=== PATIENT | male | born 1965 | race African-American/Black ===

== ENCOUNTER 2016-11-16 10:51 | Inpatient (IN) | payer MEDICAID ==
[~2016-11-16] VITALS: Ht 165.1 cm; Wt 142.9 kg
[~2016-11-16 10:51] MED LIST: ALBU18HF2 IH; AMLO5TAB4 PO; ATOR10TA PO; CYAN10009 PO; DOCU-150 PO; FERR-63 PO; FURO40TA5 PO; IBUP-2029 PO; KEFLL21 PO; LISI1TAB9 PO; LOSA50TA20 PO; OMEP20CA10 PO; OMEP20TA2 PO; P20 PO
[2016-11-16] MEDS ORDERED: IPRATROPIUM/ALBUTEROL 0.5-3(2.5)MG/3ML NEB HHN ONE (11:30)
[2016-11-16] MEDS ORDERED: FUROSEMIDE 40MG/4ML VIAL IVP ONE (11:30)
[2016-11-16] MEDS ORDERED: ASPIRIN 81MG TABLET PO ONE (11:30)
[2016-11-16] MEDS ORDERED: NITROGLYCERIN OINT 1GM/INCH UDPKT TD ONE (11:30)
[2016-11-16 11:57] LABS: BASOPHILS % 0.7 % (0.0-2.0); EOSINOPHILS % 0.4 % (0.0-5.0); HEMATOCRIT. 38.6 % (42.0-52.0); HEMOGLOBIN. 12.7 g/dL (14.0-18.0); LYMPHOCYTES % 22.2 % (20.0-50.0); MEAN CORPUSCULAR HEMOGLOBIN 30.5 pg (28.0-32.0); MEAN CORPUSCULAR VOLUME 92.9 fL (80.0-94.0); MEAN PLATELET VOLUME 7.7 fl (7.4-10.4); MONOCYTES % 10.6 % (2.0-8.0); NEUTROPHILS % 66.1 % (40.0-76.0); PLATELET 218 x1000/uL (130-400); RED BLOOD CELL COUNT 4.16 mill/uL (4.7-6.1); RED CELL DISTRIBUTION WIDTH 17.1 % (11.6-14.6)
[2016-11-16 11:58] LABS: CLARITY URINE CLEAR (CLEAR); COLOR URINE YELLOW (YELLOW); GLUCOSE URINE NEGATIVE (NEGATIVE); KETONES URINE NEGATIVE (NEGATIVE); LEUKOCYTE ESTERASE URINE NEGATIVE (NEGATIVE); NITRITE URINE NEGATIVE (NEGATIVE); OCCULT BLOOD URINE 1+ (NEGATIVE); PH URINE 5.5 (4.5-8.0); PROTEIN URINE NEGATIVE (NEGATIVE); SPECIFIC GRAVITY URINE 1.019 (1.005-1.030); UROBILINOGEN URINE 0.2 E.U./dL (0.2-1.0)
[2016-11-16 12:09] LABS: CARBON DIOXIDE 29 mEq/L (21-32); CHLORIDE 106 mEq/L (98-107)
[2016-11-16 12:14] LABS: TROPONIN I < 0.02 ng/mL (0.00-0.04)
[2016-11-16 12:31] LABS: PARTIAL THROMBOPLASTIN TIME 26.2 sec (23.4-31.0); PROTHROMBIN TIME 10.5 sec (9.4-11.6)
[2016-11-16] MEDS ORDERED: CLONIDINE 0.1MG TABLET PO PRN (16:30)
[2016-11-16] MEDS: POTASSIUM CHLORIDE 20MEQ TABLET SR PO SCH (18:03)
[2016-11-16] MEDS: FUROSEMIDE 40MG/4ML VIAL IVP SCH (18:03)
[2016-11-16 18:32] VITALS: BP 141/95
[2016-11-16] MEDS ORDERED: ASPI-1160 PO (18:49)
[2016-11-16] MEDS ORDERED: CARV12.545 PO (18:51)
[2016-11-16] MEDS ORDERED: NITROGLYCERIN 0.4MG TABLET SL SL PRN (19:00)
[2016-11-16 20:00] VITALS: BP 114/69
[2016-11-16] MEDS: LOSARTAN POTASSIUM 25 MG TABLET PO SCH (20:51)
[2016-11-16] MEDS: AMLODIPINE 5MG TABLET PO SCH (20:51)
[2016-11-16] MEDS: ATORVASTATIN CALCIUM 10MG TABLET PO SCH (20:58)
[2016-11-17] VITALS: BP 110/60
[2016-11-17 04:00] VITALS: BP 111/62
[2016-11-17 07:07] LABS: BASOPHILS % 0.4 % (0.0-2.0); EOSINOPHILS % 0.6 % (0.0-5.0); HEMATOCRIT. 38.3 % (42.0-52.0); HEMOGLOBIN. 12.6 g/dL (14.0-18.0); LYMPHOCYTES % 19.7 % (20.0-50.0); MEAN CORPUSCULAR HEMOGLOBIN 30.7 pg (28.0-32.0); MEAN CORPUSCULAR VOLUME 93.5 fL (80.0-94.0); MEAN PLATELET VOLUME 8.5 fl (7.4-10.4); MONOCYTES % 11.7 % (2.0-8.0); NEUTROPHILS % 67.6 % (40.0-76.0); PLATELET 212 x1000/uL (130-400); RED CELL DISTRIBUTION WIDTH 17.1 % (11.6-14.6)
[2016-11-17 07:48] LABS: CHLORIDE 101 mEq/L (98-107)
[2016-11-17 07:57] LABS: CARBON DIOXIDE 32 mEq/L (21-32); HDL CHOLESTEROL 28 mg/dL (40-59); LDL CHOLESTEROL 67 mg/dL (5-100); TROPONIN I < 0.02 ng/mL (0.00-0.04)
[2016-11-17 08:00] VITALS: BP 146/89
[2016-11-17] MEDS: POTASSIUM CHLORIDE 20MEQ TABLET SR PO SCH ×2 (08:39→16:19)
[2016-11-17] MEDS: FUROSEMIDE 40MG/4ML VIAL IVP SCH ×2 (08:39→16:19)
[2016-11-17] MEDS: AMLODIPINE 5MG TABLET PO SCH ×2 (08:39→21:04)
[2016-11-17] MEDS: LOSARTAN POTASSIUM 25 MG TABLET PO SCH ×2 (08:40→21:11)
[2016-11-17] MEDS: HYDROCODONE/ACETAMINOPHEN 5/325MG TABLET PO PRN ×4 (08:42→21:05)
[2016-11-17] MEDS ORDERED: POTASSIUM CHLORIDE 20MEQ TABLET SR PO NR (11:00)
[2016-11-17 11:57] VITALS: BP 136/88
[2016-11-17 15:55] VITALS: BP 138/96
[2016-11-17] MEDS: ATORVASTATIN CALCIUM 10MG TABLET PO SCH (21:03)
[2016-11-18 00:08] VITALS: BP 112/60
[2016-11-18 04:37] VITALS: BP 140/76
[2016-11-18 05:45] LABS: BASOPHILS % 0.4 % (0.0-2.0); EOSINOPHILS % 0.8 % (0.0-5.0); HEMATOCRIT. 44.1 % (42.0-52.0); HEMOGLOBIN. 14.5 g/dL (14.0-18.0); LYMPHOCYTES % 27.3 % (20.0-50.0); MEAN CORPUSCULAR VOLUME 94.1 fL (80.0-94.0); MEAN PLATELET VOLUME 8.1 fl (7.4-10.4); MONOCYTES % 13.4 % (2.0-8.0); NEUTROPHILS % 58.1 % (40.0-76.0); PLATELET 230 x1000/uL (130-400); RED BLOOD CELL COUNT 4.69 mill/uL (4.7-6.1); RED CELL DISTRIBUTION WIDTH 17.4 % (11.6-14.6)
[2016-11-18 06:43] LABS: CARBON DIOXIDE 34 mEq/L (21-32); CHLORIDE 96 mEq/L (98-107)
[2016-11-18 08:00] VITALS: BP 125/88
[2016-11-18] MEDS: POTASSIUM CHLORIDE 20MEQ TABLET SR PO SCH (08:38)
[2016-11-18] MEDS: LOSARTAN POTASSIUM 25 MG TABLET PO SCH (08:38)
[2016-11-18] MEDS: AMLODIPINE 5MG TABLET PO SCH (08:38)
[2016-11-18] MEDS: HYDROCODONE/ACETAMINOPHEN 5/325MG TABLET PO PRN (08:41)
[2016-11-18] MEDS: FUROSEMIDE 40MG/4ML VIAL IVP SCH (08:49)
[2016-11-18 12:00] VITALS: BP 148/95
[2016-11-18 13:07] LABS: *AMPHETAMINES SCREEN URINE NEGATIVE (NEGATIVE); *BARBITURATES SCREEN URINE NEGATIVE (NEGATIVE); *BENZODIAZEPINES SCREEN URINE NEGATIVE (NEGATIVE); *COCAINE SCREEN URINE NEGATIVE (NEGATIVE); CANNABINOID URINE SCREEN NEGATIVE (NEGATIVE); METHADONE URINE SCREEN NEGATIVE (NEGATIVE); OPIATES URINE SCREEN PRESUMTIVE POSITIVE (NEGATIVE); PHENCYCLIDINE URINE SCREEN NEGATIVE (NEGATIVE)
[2016-11-18] MEDS ORDERED: FUROSEMIDE 40MG TABLET PO SCH (17:00)
== END 2016-11-18 15:40 | disposition home or self-care (01) | DRG 133 ==
LOC: ER 11:21 → 8WST 15:56 → EDBEDREQ 16:00 → ENRESERV 16:02
PROVIDERS: ADMIT Internal Medicine; ATTEND Internal Medicine
DX: J96.00 Acute respiratory failure, unspecified whether with hypoxia or hypercapnia (principal); I50.23 Acute on chronic systolic (congestive) heart failure; I42.0 Dilated cardiomyopathy; E46 Unspecified protein-calorie malnutrition; Z68.43 Body mass index [BMI] 50.0-59.9, adult; E66.01 Morbid (severe) obesity due to excess calories; J44.9 Chronic obstructive pulmonary disease, unspecified; D50.9 Iron deficiency anemia, unspecified; F14.10 Cocaine abuse, uncomplicated; I11.0 Hypertensive heart disease with heart failure; E78.5 Hyperlipidemia, unspecified; K21.9 Gastro-esophageal reflux disease without esophagitis; E78.00 Pure hypercholesterolemia, unspecified; F17.200 Nicotine dependence, unspecified, uncomplicated; Z79.82 Long term (current) use of aspirin; Z79.899 Other long term (current) drug therapy; Z91.19 Patient's noncompliance with other medical treatment and regimen; Z88.6 Allergy status to analgesic agent; Z79.51 Long term (current) use of inhaled steroids
CPT/HCPCS: 36415; 71010; 80053; 80061; 80305; 81001; 83735; 83880; 84443; 84484; 85025; 85610; 85730; 87040; 87086; 93005; 93970; 94640; 96374; 99285; 99406; J1940; J7620

== ENCOUNTER 2017-03-11 10:36 | Inpatient (IN) | payer MEDICAID ==
[~2017-03-11] VITALS: Ht 165.1 cm; Wt 148.0 kg
[~2017-03-11 10:36] MED LIST changes: -AMLO5TAB4 PO; +AMLO5TAB88 PO; +ASPI-1160 PO; +COR12 PO; -IBUP-2029 PO; -KEFLL21 PO; -LOSA50TA20 PO; +LOSA50TA3 PO; -OMEP20CA10 PO; -OMEP20TA2 PO; -P20 PO; +THIA100T72 PO
[2017-03-11 11:18] LABS: BASOPHILS % 0.4 % (0.0-2.0); HEMOGLOBIN. 13.3 g/dL (14.0-18.0); LYMPHOCYTES % 9.4 % (20.0-50.0); MEAN CORPUSCULAR HEMOGLOBIN 30.5 pg (28.0-32.0); MEAN PLATELET VOLUME 8.5 fl (7.4-10.4); NEUTROPHILS % 81.2 % (40.0-76.0); PLATELET 238 x1000/uL (130-400); RED BLOOD CELL COUNT 4.36 mill/uL (4.7-6.1); RED CELL DISTRIBUTION WIDTH 16.6 % (11.6-14.6)
[2017-03-11 11:28] LABS: PROTHROMBIN TIME 10.9 sec (9.4-11.6)
[2017-03-11 11:35] LABS: CARBON DIOXIDE 26 mEq/L (21-32); CHLORIDE 104 mEq/L (98-107); TROPONIN I 0.03 ng/mL (0.00-0.04)
[2017-03-11] MEDS ORDERED: ASPIRIN 81MG TABLET PO ONE (12:00)
[2017-03-11] MEDS ORDERED: ALBUTEROL (0.083%) 2.5MG/3ML NEB HHN ONE (12:00)
[2017-03-11] MEDS ORDERED: FUROSEMIDE 40MG/4ML VIAL IV ONE (12:00)
[2017-03-11] MEDS ORDERED: NITROGLYCERIN 0.4MG TABLET SL SL PRN (12:00)
[2017-03-11 14:59] VITALS: BP 156/96
[2017-03-11] MEDS ORDERED: ATOR10TA69 PO (15:16)
[2017-03-11] MEDS ORDERED: DIPH25CA46 PO (15:16)
[2017-03-11] MEDS ORDERED: POTA20TA82 PO (15:16)
[2017-03-11 15:45] VITALS: BP 141/76
[2017-03-11] MEDS ORDERED: ALBUTEROL 6.7GM HFA INHALER INH PRN (18:00)
[2017-03-11 20:00] VITALS: BP 117/63
[2017-03-11] MEDS: MORPHINE SULFATE 2 MG/ML CPJ (NOT FOR IM USE) IV PRN (21:06)
[2017-03-11] MEDS: AMLODIPINE 5MG TABLET PO SCH (21:06)
[2017-03-12] VITALS (7 sets, daily range): BP systolic 85–152; BP diastolic 42–80
[2017-03-12] MEDS: MORPHINE SULFATE 2 MG/ML CPJ (NOT FOR IM USE) IV PRN ×3 (02:46→21:13)
[2017-03-12] MEDS: FUROSEMIDE 40MG/4ML VIAL IVP SCH ×2 (08:37→16:58)
[2017-03-12] MEDS: ASPIRIN 81MG TABLET PO SCH (08:37)
[2017-03-12] MEDS: ATORVASTATIN CALCIUM 10MG TABLET PO SCH (08:38)
[2017-03-12] MEDS: LISINOPRIL 10MG TABLET PO SCH (08:38)
[2017-03-12] MEDS: CARVEDILOL 12.5MG TABLET PO SCH ×2 (08:38→21:11)
[2017-03-12] MEDS: AMLODIPINE 5MG TABLET PO SCH ×2 (08:38→21:11)
[2017-03-12] MEDS: HYDROCHLOROTHIAZIDE 12.5MG CAPSULE PO SCH (08:39)
[2017-03-12] MEDS: ENOXAPARIN 40MG/0.4ML SYR SUBCUT SCH ×2 (08:39→21:12)
[2017-03-12] MEDS ORDERED: FUROSEMIDE 40MG/4ML VIAL IVP SCH (09:00)
[2017-03-13] VITALS (8 sets, daily range): BP systolic 93–128; BP diastolic 56–84
[2017-03-13 07:09] LABS: HEMATOCRIT. 39.3 % (42.0-52.0); HEMOGLOBIN. 12.8 g/dL (14.0-18.0); MEAN CORPUSCULAR HEMOGLOBIN 30.4 pg (28.0-32.0); MEAN CORPUSCULAR VOLUME 93.7 fL (80.0-94.0); MEAN PLATELET VOLUME 8.8 fl (7.4-10.4); PLATELET 220 x1000/uL (130-400); RED CELL DISTRIBUTION WIDTH 16.3 % (11.6-14.6)
[2017-03-13 07:26] LABS: CARBON DIOXIDE 33 mEq/L (21-32); CHLORIDE 99 mEq/L (98-107); TROPONIN I < 0.02 ng/mL (0.00-0.04)
[2017-03-13 07:43] LABS: PLATELET ESTIMATE NORMAL
[2017-03-13] MEDS: HYDROCHLOROTHIAZIDE 12.5MG CAPSULE PO SCH (08:17)
[2017-03-13] MEDS: ATORVASTATIN CALCIUM 10MG TABLET PO SCH (08:18)
[2017-03-13] MEDS: AMLODIPINE 5MG TABLET PO SCH ×2 (08:18→20:36)
[2017-03-13] MEDS: CARVEDILOL 12.5MG TABLET PO SCH ×2 (08:18→20:35)
[2017-03-13] MEDS: LISINOPRIL 10MG TABLET PO SCH (08:18)
[2017-03-13] MEDS: ASPIRIN 81MG TABLET PO SCH (08:18)
[2017-03-13] MEDS: ENOXAPARIN 40MG/0.4ML SYR SUBCUT SCH ×2 (08:19→21:40)
[2017-03-13] MEDS: FUROSEMIDE 40MG/4ML VIAL IVP SCH ×2 (08:19→17:34)
[2017-03-13] MEDS ORDERED: HYDROCODONE/ACETAMINOPHEN 5/325MG TABLET PO SCH (10:00)
[2017-03-13] MEDS ORDERED: IPRATROPIUM/ALBUTEROL 0.5-3(2.5)MG/3ML NEB HHN PRN (10:00)
[2017-03-13] MEDS: IPRATROPIUM/ALBUTEROL 0.5-3(2.5)MG/3ML NEB HHN SCH ×3 (10:48→22:27)
[2017-03-13 11:51] LABS: *AMPHETAMINES SCREEN URINE NEGATIVE (NEGATIVE); *BARBITURATES SCREEN URINE NEGATIVE (NEGATIVE); *BENZODIAZEPINES SCREEN URINE NEGATIVE (NEGATIVE); *COCAINE SCREEN URINE PRESUMTIVE POSITIVE (NEGATIVE); CANNABINOID URINE SCREEN NEGATIVE (NEGATIVE); METHADONE URINE SCREEN NEGATIVE (NEGATIVE); OPIATES URINE SCREEN PRESUMTIVE POSITIVE (NEGATIVE); PHENCYCLIDINE URINE SCREEN NEGATIVE (NEGATIVE)
[2017-03-13] MEDS ORDERED: MORPHINE SULFATE 2 MG/ML CPJ (NOT FOR IM USE) IV PRN (12:15)
[2017-03-13 15:16] LABS: BG BASE EXCESS 12.1 mmol/L (-2.0-2.0); BG CARBOXYHEMOGLOBIN 0.9 % (0.5-1.5); BG DEOXYHEMOGLOBIN 5.7 % (0.0-5.0); BG FRACTION INSPIRED OXYGEN 36; BG HCO3 ACT 38.9 mmol/L (22.0-26.0); BG METHEMOGLOBIN 0.4 % (0.0-1.5); BG OXYGEN SATURATION 94.2 % (92.0-98.5); BG PCO2 59.1 mmHg (35.0-45.0); BG PH 7.436 (7.350-7.450); BG SAMPLE SITE RIGHT RADIAL; BG VENT MODE NASAL CANNULA
[2017-03-13] MEDS: NEOMY SULF/BACITRAC ZN/POLY OINT 28GM TOP SCH ×2 (16:49→21:43)
[2017-03-13] MEDS: HYDROCODONE/ACETAMINOPHEN 5/325MG TABLET PO PRN (18:31)
[2017-03-13 19:44] LABS: KETONES URINE NEGATIVE (NEGATIVE); LEUKOCYTE ESTERASE URINE NEGATIVE (NEGATIVE); NITRITE URINE NEGATIVE (NEGATIVE); OCCULT BLOOD URINE TRACE (NEGATIVE); PH URINE 6.5 (4.5-8.0); PROTEIN URINE NEGATIVE (NEGATIVE); SPECIFIC GRAVITY URINE 1.009 (1.005-1.030)
[2017-03-13 19:46] LABS: CLARITY URINE CLEAR (CLEAR); COLOR URINE YELLOW (YELLOW)
[2017-03-14] VITALS: BP 136/71
[2017-03-14] MEDS: HYDROCODONE/ACETAMINOPHEN 5/325MG TABLET PO PRN ×5 (00:22→21:32)
[2017-03-14] MEDS: IPRATROPIUM/ALBUTEROL 0.5-3(2.5)MG/3ML NEB HHN SCH ×4 (02:31→22:09)
[2017-03-14 04:00] VITALS: BP 128/72
[2017-03-14] MEDS: NEOMY SULF/BACITRAC ZN/POLY OINT 28GM TOP SCH ×3 (05:21→21:34)
[2017-03-14 06:14] LABS: BASOPHILS % 0.5 % (0.0-2.0); EOSINOPHILS % 1.1 % (0.0-5.0); HEMATOCRIT. 39.7 % (42.0-52.0); HEMOGLOBIN. 12.8 g/dL (14.0-18.0); LYMPHOCYTES % 20.1 % (20.0-50.0); MEAN CORPUSCULAR HEMOGLOBIN 30.5 pg (28.0-32.0); MEAN CORPUSCULAR VOLUME 94.6 fL (80.0-94.0); MEAN PLATELET VOLUME 8.9 fl (7.4-10.4); MONOCYTES % 14.7 % (2.0-8.0); NEUTROPHILS % 63.6 % (40.0-76.0); PLATELET 222 x1000/uL (130-400); RED CELL DISTRIBUTION WIDTH 16.5 % (11.6-14.6)
[2017-03-14 08:00] VITALS: BP 126/77
[2017-03-14 08:55] LABS: CARBON DIOXIDE 34 mEq/L (21-32); CHLORIDE 96 mEq/L (98-107); TROPONIN I < 0.02 ng/mL (0.00-0.04)
[2017-03-14] MEDS: AMLODIPINE 5MG TABLET PO SCH ×2 (09:00→21:00)
[2017-03-14] MEDS: LISINOPRIL 10MG TABLET PO SCH (09:00)
[2017-03-14] MEDS: CARVEDILOL 12.5MG TABLET PO SCH ×2 (09:21→21:33)
[2017-03-14] MEDS: ASPIRIN 81MG TABLET PO SCH (09:21)
[2017-03-14] MEDS: ATORVASTATIN CALCIUM 10MG TABLET PO SCH (09:21)
[2017-03-14] MEDS: HYDROCHLOROTHIAZIDE 12.5MG CAPSULE PO SCH (09:22)
[2017-03-14] MEDS: FUROSEMIDE 40MG/4ML VIAL IVP SCH ×2 (09:23→17:04)
[2017-03-14] MEDS: ENOXAPARIN 40MG/0.4ML SYR SUBCUT SCH ×2 (09:24→21:31)
[2017-03-14 12:00] VITALS: BP 91/48
[2017-03-14] MEDS: NICOTINE 21MG PATCH TD SCH (15:04)
[2017-03-14 16:00] VITALS: BP 134/71
[2017-03-14 20:00] VITALS: BP 101/56
[2017-03-15] VITALS: BP 101/70
[2017-03-15] MEDS: IPRATROPIUM/ALBUTEROL 0.5-3(2.5)MG/3ML NEB HHN SCH ×3 (02:31→12:11)
[2017-03-15 04:00] VITALS: BP 113/79
[2017-03-15] MEDS: NEOMY SULF/BACITRAC ZN/POLY OINT 28GM TOP SCH (06:26)
[2017-03-15 07:00] LABS: BASOPHILS % 0.4 % (0.0-2.0); EOSINOPHILS % 1.3 % (0.0-5.0); HEMATOCRIT. 38.3 % (42.0-52.0); HEMOGLOBIN. 12.7 g/dL (14.0-18.0); LYMPHOCYTES % 20.9 % (20.0-50.0); MEAN CORPUSCULAR HEMOGLOBIN 31.1 pg (28.0-32.0); MEAN CORPUSCULAR VOLUME 94.1 fL (80.0-94.0); MEAN PLATELET VOLUME 8.6 fl (7.4-10.4); MONOCYTES % 14.9 % (2.0-8.0); NEUTROPHILS % 62.5 % (40.0-76.0); PLATELET 222 x1000/uL (130-400); RED BLOOD CELL COUNT 4.07 mill/uL (4.7-6.1); RED CELL DISTRIBUTION WIDTH 16.4 % (11.6-14.6)
[2017-03-15 08:40] LABS: CARBON DIOXIDE 36 mEq/L (21-32); CHLORIDE 94 mEq/L (98-107)
[2017-03-15] MEDS: AMLODIPINE 5MG TABLET PO SCH (09:00)
[2017-03-15] MEDS: ASPIRIN 81MG TABLET PO SCH (10:17)
[2017-03-15] MEDS: ENOXAPARIN 40MG/0.4ML SYR SUBCUT SCH (10:17)
[2017-03-15] MEDS: ATORVASTATIN CALCIUM 10MG TABLET PO SCH (10:18)
[2017-03-15] MEDS: HYDROCHLOROTHIAZIDE 12.5MG CAPSULE PO SCH (10:19)
[2017-03-15] MEDS: CARVEDILOL 12.5MG TABLET PO SCH (10:19)
[2017-03-15] MEDS: LISINOPRIL 10MG TABLET PO SCH (10:19)
[2017-03-15] MEDS: HYDROCODONE/ACETAMINOPHEN 5/325MG TABLET PO PRN (10:20)
[2017-03-15] MEDS: NICOTINE 21MG PATCH TD SCH (10:21)
[2017-03-15] MEDS: FUROSEMIDE 40MG/4ML VIAL IVP SCH (10:21)
[2017-03-15] MEDS ORDERED: NICO-682 TD (11:10)
[2017-03-15] MEDS ORDERED: CEPH-569 PO (11:10)
[2017-03-15] MEDS ORDERED: HYDR-4001 PO (12:02)
[2017-03-15 12:32] VITALS: BP 94/56
== END 2017-03-15 13:35 | disposition home or self-care (01) | DRG 816 ==
LOC: ER 10:52 → 5WST 11:56 → ENRESERV 12:41
PROVIDERS: ADMIT Internal Medicine; ATTEND Internal Medicine
DX: T40.5X1A Poisoning by cocaine, accidental (unintentional), initial encounter (principal); J96.00 Acute respiratory failure, unspecified whether with hypoxia or hypercapnia; I50.23 Acute on chronic systolic (congestive) heart failure; E87.3 Alkalosis; E46 Unspecified protein-calorie malnutrition; I42.0 Dilated cardiomyopathy; J68.0 Bronchitis and pneumonitis due to chemicals, gases, fumes and vapors; Z68.43 Body mass index [BMI] 50.0-59.9, adult; I11.0 Hypertensive heart disease with heart failure; I27.20 Pulmonary hypertension, unspecified; E78.5 Hyperlipidemia, unspecified; F17.210 Nicotine dependence, cigarettes, uncomplicated; G47.33 Obstructive sleep apnea (adult) (pediatric); E66.01 Morbid (severe) obesity due to excess calories; F32.9 Major depressive disorder, single episode, unspecified; D64.9 Anemia, unspecified; K21.9 Gastro-esophageal reflux disease without esophagitis; R73.9 Hyperglycemia, unspecified; Z82.49 Family history of ischemic heart disease and other diseases of the circulatory system; Z91.19 Patient's noncompliance with other medical treatment and regimen; Y92.89 Other specified places as the place of occurrence of the external cause; Z88.8 Allergy status to other drugs, medicaments and biological substances; Z91.11 Patient's noncompliance with dietary regimen; Z99.81 Dependence on supplemental oxygen; Z79.82 Long term (current) use of aspirin; Z79.899 Other long term (current) drug therapy
CPT/HCPCS: 36415; 36600; 71045; 80048; 80053; 80305; 81001; 82375; 82805; 83036; 83735; 83880; 84484; 85025; 85610; 87070; 87077; 87186; 87205; 93005; 93306; 94640; 96374; 99291; J1650; J1940; J2270; J7611; J7620

== ENCOUNTER 2017-09-29 12:10 | Inpatient (IN) | payer MEDICAID ==
[~2017-09-29] VITALS: Ht 165.1 cm; Wt 146.5 kg
[~2017-09-29 12:10] MED LIST changes: +ACET-2178 MT; +ALPR0.25 PO; +AMLO5TAB88 MT; -AMLO5TAB88 PO; -ASPI-1160 PO; -ATOR10TA PO; +ATOR10TA69 MT; -CYAN10009 PO; +DOCU-138 PO; -DOCU-150 PO; +DOXY150T MT; -FERR-63 PO; -FURO40TA5 PO; +FURO80TA3 MT; +IPRA3AMP9 HHN; +LISI10TA5 PO; -LISI1TAB9 PO; -LOSA50TA3 PO; +MUPI15CR13 TP; +POTA20TA82 PO; +PULM50 HHN; -THIA100T72 PO
[2017-09-29] MEDS ORDERED: ALBUTEROL (0.083%) 2.5MG/3ML NEB HHN STA (13:23)
[2017-09-29] MEDS ORDERED: IPRATROPIUM BROMIDE (0.02%) 0.5MG/2.5ML NEB HHN STA (13:23)
[2017-09-29] MEDS ORDERED: BUMETANIDE 0.25MG/ML 2ML VIAL IV ONE (13:30)
[2017-09-29] MEDS ORDERED: ONDANSETRON HCL 4MG/2ML VIAL IV ONE (14:15)
[2017-09-29] MEDS ORDERED: ASPIRIN 81MG TABLET PO ONE (14:15)
[2017-09-29] MEDS ORDERED: MORPHINE SULFATE 4 MG/ML CPJ (NOT FOR IM USE) IV ONE (14:15)
[2017-09-29 15:01] LABS: CHLORIDE 102 mEq/L (98-107); PARTIAL THROMBOPLASTIN TIME 25.6 sec (23.4-31.0); PROTHROMBIN TIME 10.2 sec (9.1-11.1)
[2017-09-29 15:04] LABS: BASOPHILS % 0.4 % (0.0-2.0); EOSINOPHILS % 0.5 % (0.0-5.0); HEMATOCRIT. 35.7 % (42.0-52.0); HEMOGLOBIN. 11.8 g/dL (14.0-18.0); LYMPHOCYTES % 20.5 % (20.0-50.0); MEAN CORPUSCULAR HEMOGLOBIN 30.4 pg (28.0-32.0); MEAN CORPUSCULAR VOLUME 91.9 fL (80.0-94.0); MEAN PLATELET VOLUME 8.6 fl (7.4-10.4); MONOCYTES % 9.6 % (2.0-8.0); PLATELET 264 x1000/uL (130-400); RED BLOOD CELL COUNT 3.88 mill/uL (4.7-6.1); RED CELL DISTRIBUTION WIDTH 16.4 % (11.6-14.6)
[2017-09-29] MEDS ORDERED: POTASSIUM CHLORIDE 20MEQ TABLET SR PO ONE (15:15)
[2017-09-29] MEDS ORDERED: IPRATROPIUM/ALBUTEROL 0.5-3(2.5)MG/3ML NEB HHN PRN (15:45)
[2017-09-29 16:00] VITALS: BP 119/83
[2017-09-29] MEDS ORDERED: ONDANSETRON HCL 4MG/2ML VIAL IV PRN (17:00)
[2017-09-29 18:11] LABS: CLARITY URINE CLEAR (CLEAR); COLOR URINE YELLOW (YELLOW); KETONES URINE NEGATIVE (NEGATIVE); LEUKOCYTE ESTERASE URINE NEGATIVE (NEGATIVE); NITRITE URINE NEGATIVE (NEGATIVE); OCCULT BLOOD URINE TRACE (NEGATIVE); PROTEIN URINE NEGATIVE (NEGATIVE); SPECIFIC GRAVITY URINE 1.012 (1.005-1.030); UROBILINOGEN URINE 0.2 E.U./dL (0.2-1.0)
[2017-09-29 18:27] LABS: *AMPHETAMINES SCREEN URINE NEGATIVE (NEGATIVE); *BENZODIAZEPINES SCREEN URINE NEGATIVE (NEGATIVE); *COCAINE SCREEN URINE PRESUMTIVE POSITIVE (NEGATIVE); CANNABINOID URINE SCREEN NEGATIVE (NEGATIVE); OPIATES URINE SCREEN PRESUMTIVE POSITIVE (NEGATIVE); PHENCYCLIDINE URINE SCREEN NEGATIVE (NEGATIVE)
[2017-09-29 18:28] LABS: *BARBITURATES SCREEN URINE NEGATIVE (NEGATIVE); METHADONE URINE SCREEN NEGATIVE (NEGATIVE)
[2017-09-29 20:00] VITALS: BP 140/79
[2017-09-29] MEDS ORDERED: BENZONATATE 100MG CAPSULE PO PRN (20:00)
[2017-09-29] MEDS: MONTELUKAST SODIUM 10MG TABLET PO SCH (20:22)
[2017-09-29] MEDS: FUROSEMIDE 40MG/4ML VIAL IVP SCH (20:22)
[2017-09-29] MEDS: CARVEDILOL 12.5MG TABLET PO SCH (20:23)
[2017-09-29] MEDS: METHYLPREDNISOLONE SOD SUCC 40 MG/ML VIAL IV SCH (20:23)
[2017-09-29] MEDS: MORPHINE SULFATE 4 MG/ML CPJ (NOT FOR IM USE) IV PRN (20:24)
[2017-09-29 20:50] VITALS: BP 140/79
[2017-09-29] MEDS: IPRATROPIUM/ALBUTEROL 0.5-3(2.5)MG/3ML NEB HHN SCH (20:55)
[2017-09-29] MEDS ORDERED: BENZ100C86 PO (22:27)
[2017-09-30] VITALS: BP 93/57
[2017-09-30] MEDS: IPRATROPIUM/ALBUTEROL 0.5-3(2.5)MG/3ML NEB HHN SCH ×6 (00:47→20:15)
[2017-09-30 04:00] VITALS: BP 122/72
[2017-09-30] MEDS: METHYLPREDNISOLONE SOD SUCC 40 MG/ML VIAL IV SCH (04:47)
[2017-09-30 08:00] VITALS: BP 112/64
[2017-09-30 08:09] LABS: HEMATOCRIT 35.5 % (42.0-52.0); HEMOGLOBIN 11.8 g/dL (14.0-18.0); MEAN CORPUSCULAR VOLUME 92.8 fL (80.0-94.0); PLATELET 254 x1000/uL (130-400); RED BLOOD CELL COUNT 3.82 mill/uL (4.7-6.1); RED CELL DISTRIBUTION WIDTH 16.7 % (11.6-14.6)
[2017-09-30 08:11] LABS: CHLORIDE 103 mEq/L (98-107)
[2017-09-30] MEDS: CARVEDILOL 12.5MG TABLET PO SCH (08:55)
[2017-09-30] MEDS: FUROSEMIDE 40MG/4ML VIAL IVP SCH ×2 (08:55→18:00)
[2017-09-30] MEDS: ATORVASTATIN CALCIUM 10MG TABLET PO SCH (08:55)
[2017-09-30] MEDS: ASPIRIN 81MG TABLET PO SCH (08:56)
[2017-09-30] MEDS: HYDROCODONE/ACETAMINOPHEN 5/325MG TABLET PO PRN ×3 (09:19→22:51)
[2017-09-30 12:10] VITALS: BP 118/73
[2017-09-30 16:20] VITALS: BP 112/83
[2017-09-30] MEDS: MONTELUKAST SODIUM 10MG TABLET PO SCH (18:02)
[2017-09-30 20:00] VITALS: BP 117/72
[2017-10-01] VITALS: BP 113/67
[2017-10-01] MEDS: IPRATROPIUM/ALBUTEROL 0.5-3(2.5)MG/3ML NEB HHN SCH ×4 (00:04→11:28)
[2017-10-01 04:00] VITALS: BP 109/54
[2017-10-01 08:00] VITALS: BP 107/73
[2017-10-01] MEDS ORDERED: PREDNISONE 20MG TABLET PO SCH (09:00)
[2017-10-01] MEDS: ATORVASTATIN CALCIUM 10MG TABLET PO SCH (09:08)
[2017-10-01] MEDS: ASPIRIN 81MG TABLET PO SCH (09:08)
[2017-10-01] MEDS: FUROSEMIDE 40MG/4ML VIAL IVP SCH (09:08)
[2017-10-01] MEDS: MORPHINE SULFATE 4 MG/ML CPJ (NOT FOR IM USE) IV PRN (09:09)
[2017-10-01] MEDS ORDERED: CLOTRIMAZOLE 1% CREAM 30GM TOP SCH (11:00)
[2017-10-01 11:58] VITALS: BP 122/78
[2017-10-01 14:25] VITALS: BP 122/78
== END 2017-10-01 15:15 | disposition home or self-care (01) | DRG 133 ==
LOC: ER 12:10 → 5WST 14:01 → EDBEDREQ 14:06 → EDBEDREQTM 14:06 → ENRESERV 17:17
PROVIDERS: ADMIT Internal Medicine; ATTEND Internal Medicine
DX: J96.20 Acute and chronic respiratory failure, unspecified whether with hypoxia or hypercapnia (principal); J86.9 Pyothorax without fistula; I50.43 Acute on chronic combined systolic (congestive) and diastolic (congestive) heart failure; E44.0 Moderate protein-calorie malnutrition; I42.9 Cardiomyopathy, unspecified; J44.1 Chronic obstructive pulmonary disease with (acute) exacerbation; Z68.43 Body mass index [BMI] 50.0-59.9, adult; Z99.81 Dependence on supplemental oxygen; I11.0 Hypertensive heart disease with heart failure; E78.5 Hyperlipidemia, unspecified; E66.01 Morbid (severe) obesity due to excess calories; F14.90 Cocaine use, unspecified, uncomplicated; E87.6 Hypokalemia; D64.9 Anemia, unspecified; F17.200 Nicotine dependence, unspecified, uncomplicated; E78.00 Pure hypercholesterolemia, unspecified; Z88.8 Allergy status to other drugs, medicaments and biological substances; Z79.899 Other long term (current) drug therapy
CPT/HCPCS: 36415; 71045; 80048; 80053; 80305; 81003; 83690; 83880; 84484; 85025; 85027; 85610; 85730; 93005; 93970; 94640; 94644; 96374; 96375; 99291; J1940; J2270; J2405; J2920; J3490; J7512; J7611; J7620

== ENCOUNTER 2017-11-21 10:13 | Inpatient (IN) | payer MEDICAID ==
[~2017-11-21] VITALS: Ht 165.1 cm; Wt 142.4 kg
[~2017-11-21 10:13] MED LIST changes: -ACET-2178 MT; -ALBU18HF2 IH; -ALPR0.25 PO; -AMLO5TAB88 MT; +AMLO5TAB88 PO; +ASPI-1158 PO; +ATOR10TA PO; -ATOR10TA69 MT; +BENZ100C86 PO; -COR12 PO; -DOCU-138 PO; -DOXY150T MT; +FURO10VI3 IVP; -FURO80TA3 MT; -IPRA3AMP9 HHN; +MONT10TA21 PO; -MUPI15CR13 TP; -PULM50 HHN
[2017-11-21] MEDS ORDERED: MORPHINE SULFATE 4 MG/ML CPJ (NOT FOR IM USE) IV STA (11:41)
[2017-11-21] MEDS ORDERED: ONDANSETRON HCL 4MG/2ML INJ IV STA (11:41)
[2017-11-21] MEDS ORDERED: FUROSEMIDE 40MG/4ML VIAL IV ONE (11:45)
[2017-11-21] MEDS ORDERED: NITROGLYCERIN OINT 1GM/INCH UDPKT TD ONE (11:45)
[2017-11-21] MEDS ORDERED: ASPIRIN 81MG TABLET PO ONE (11:45)
[2017-11-21 11:49] LABS: BASOPHILS % 0.6 % (0.0-2.0); HEMATOCRIT. 32.8 % (42.0-52.0); HEMOGLOBIN. 10.7 g/dL (14.0-18.0); MEAN CORPUSCULAR HEMOGLOBIN 30.1 pg (28.0-32.0); MEAN CORPUSCULAR VOLUME 91.8 fL (80.0-94.0); MEAN PLATELET VOLUME 8.2 fl (7.4-10.4); NEUTROPHILS % 73.4 % (40.0-76.0); PLATELET 304 x1000/uL (130-400); RED BLOOD CELL COUNT 3.57 mill/uL (4.7-6.1); RED CELL DISTRIBUTION WIDTH 16.6 % (11.6-14.6)
[2017-11-21 11:52] LABS: CHLORIDE 106 mEq/L (98-107)
[2017-11-21] MEDS ORDERED: ALBUTEROL (0.083%) 2.5MG/3ML NEB HHN STA (11:52)
[2017-11-21] MEDS: NITROGLYCERIN 0.4MG TABLET SL SL PRN ×2 (12:30→13:56)
[2017-11-21 15:30] VITALS: BP 103/62
[2017-11-21 16:01] LABS: PARTIAL THROMBOPLASTIN TIME 28.7 sec (23.4-31.0); PROTHROMBIN TIME 10.5 sec (9.1-11.1)
[2017-11-21] MEDS ORDERED: ACETAMINOPHEN 325MG TABLET PO PRN (16:45)
[2017-11-21] MEDS ORDERED: BENZONATATE 100MG CAPSULE PO PRN (16:45)
[2017-11-21] MEDS ORDERED: HYDROCODONE/ACETAMINOPHEN 5/325MG TABLET PO PRN ×2 (16:45)
[2017-11-21] MEDS ORDERED: CLONIDINE 0.1MG TABLET PO PRN (16:45)
[2017-11-21] MEDS ORDERED: IPRATROPIUM/ALBUTEROL 0.5-3(2.5)MG/3ML NEB HHN PRN (16:45)
[2017-11-21] MEDS ORDERED: MORPHINE SULFATE 2 MG/ML CPJ (NOT FOR IM USE) IV PRN (16:45)
[2017-11-21] MEDS ORDERED: ONDANSETRON HCL 4MG/2ML INJ IV PRN (16:45)
[2017-11-21] MEDS ORDERED: METHYLPREDNISOLONE SOD SUCC 40 MG/ML VIAL IV SCH (18:00)
[2017-11-21] MEDS ORDERED: MONTELUKAST SODIUM 10MG TABLET PO SCH (18:30)
[2017-11-21] MEDS ORDERED: FUROSEMIDE 40MG/4ML VIAL IVP SCH ×2 (18:30→21:30)
[2017-11-21 20:00] VITALS: BP 94/46
[2017-11-21] MEDS: IPRATROPIUM/ALBUTEROL 0.5-3(2.5)MG/3ML NEB HHN SCH (20:12)
[2017-11-21] MEDS: CARVEDILOL 12.5MG TABLET PO SCH (20:46)
[2017-11-21] MEDS ORDERED: ATORVASTATIN CALCIUM 20MG TABLET PO SCH (21:00)
[2017-11-21] MEDS: ENOXAPARIN 40MG/0.4ML SYR SUBCUT SCH (21:34)
[2017-11-21] MEDS: METHYLPREDNISOLONE SOD SUCC 40 MG/ML VIAL IV SCH (21:35)
[2017-11-21] MEDS: MONTELUKAST SODIUM 10MG TABLET PO SCH (21:35)
[2017-11-21 21:45] VITALS: BP 113/65
[2017-11-21] MEDS: ATORVASTATIN CALCIUM 10MG TABLET PO SCH (21:49)
[2017-11-21] MEDS: MORPHINE SULFATE 4 MG/ML CPJ (NOT FOR IM USE) IV PRN (21:52)
[2017-11-22 00:01] VITALS: BP 100/48
[2017-11-22] MEDS: IPRATROPIUM/ALBUTEROL 0.5-3(2.5)MG/3ML NEB HHN SCH ×6 (00:09→20:13)
[2017-11-22 01:27] LABS: TOTAL IRON BINDING CAPACITY 292 ug/dL (250-450)
[2017-11-22 03:59] VITALS: BP 98/43
[2017-11-22] MEDS: METHYLPREDNISOLONE SOD SUCC 40 MG/ML VIAL IV SCH ×3 (06:19→20:30)
[2017-11-22 07:07] LABS: HEMATOCRIT 33.4 % (42.0-52.0); HEMOGLOBIN 10.6 g/dL (14.0-18.0); MEAN CORPUSCULAR HEMOGLOBIN 29.3 pg (28.0-32.0); MEAN CORPUSCULAR VOLUME 91.8 fL (80.0-94.0); PLATELET 289 x1000/uL (130-400); RED BLOOD CELL COUNT 3.64 mill/uL (4.7-6.1); RED CELL DISTRIBUTION WIDTH 16.5 % (11.6-14.6)
[2017-11-22 07:50] VITALS: BP 126/71
[2017-11-22] MEDS: CARVEDILOL 12.5MG TABLET PO SCH (08:21)
[2017-11-22] MEDS: FUROSEMIDE 100MG/10ML VIAL IVP SCH (08:21)
[2017-11-22] MEDS: MORPHINE SULFATE 4 MG/ML CPJ (NOT FOR IM USE) IV PRN ×2 (08:22→20:30)
[2017-11-22] MEDS: ASPIRIN 81MG TABLET PO SCH (08:22)
[2017-11-22] MEDS: POTASSIUM CHLORIDE 20MEQ TABLET SR PO SCH (08:22)
[2017-11-22] MEDS: ENOXAPARIN 40MG/0.4ML SYR SUBCUT SCH ×2 (08:22→20:29)
[2017-11-22] MEDS ORDERED: LISINOPRIL 20MG TABLET PO SCH (09:00)
[2017-11-22] MEDS ORDERED: ASPIRIN 81MG TABLET PO SCH (09:00)
[2017-11-22] MEDS ORDERED: AMLODIPINE 5MG TABLET PO SCH (09:00)
[2017-11-22 09:37] LABS: CHLORIDE 102 mEq/L (98-107)
[2017-11-22] MEDS ORDERED: INFLUENZA VIRUS VACCINE(AFLURIA) 0.5ML SYR IM ONE (10:00)
[2017-11-22 11:53] VITALS: BP 100/50
[2017-11-22] MEDS ORDERED: NA PHOS,M-B/NA PHOS,DI-BA ENEMA 118ML PR NR (13:00)
[2017-11-22] MEDS: FERROUS SULFATE 325MG TABLET PO SCH ×2 (13:24→17:46)
[2017-11-22 16:00] VITALS: BP 113/71
[2017-11-22 17:04] LABS: *AMPHETAMINES SCREEN URINE NEGATIVE (NEGATIVE); *BARBITURATES SCREEN URINE NEGATIVE (NEGATIVE); *BENZODIAZEPINES SCREEN URINE NEGATIVE (NEGATIVE); *COCAINE SCREEN URINE NEGATIVE (NEGATIVE)
[2017-11-22 17:07] LABS: CANNABINOID URINE SCREEN NEGATIVE (NEGATIVE); METHADONE URINE SCREEN NEGATIVE (NEGATIVE); OPIATES URINE SCREEN PRESUMTIVE POSITIVE (NEGATIVE); PHENCYCLIDINE URINE SCREEN NEGATIVE (NEGATIVE)
[2017-11-22] MEDS: MONTELUKAST SODIUM 10MG TABLET PO SCH (17:46)
[2017-11-22] MEDS: DOCUSATE SODIUM 100MG CAPSULE PO SCH (17:46)
[2017-11-22 19:55] VITALS: BP 119/82
[2017-11-22] MEDS: ATORVASTATIN CALCIUM 10MG TABLET PO SCH (20:28)
[2017-11-22] MEDS ORDERED: LACTULOSE 20G/30ML UDC PO PRN (21:00)
[2017-11-23] VITALS: BP 113/61
[2017-11-23] MEDS: IPRATROPIUM/ALBUTEROL 0.5-3(2.5)MG/3ML NEB HHN SCH ×6 (00:47→21:27)
[2017-11-23 04:00] VITALS: BP 126/76
[2017-11-23] MEDS: METHYLPREDNISOLONE SOD SUCC 40 MG/ML VIAL IV SCH ×3 (05:32→23:57)
[2017-11-23] MEDS: MORPHINE SULFATE 4 MG/ML CPJ (NOT FOR IM USE) IV PRN ×3 (05:33→17:16)
[2017-11-23 07:45] LABS: HEMATOCRIT. 32.7 % (42.0-52.0); HEMOGLOBIN. 10.6 g/dL (14.0-18.0); MEAN CORPUSCULAR HEMOGLOBIN 29.8 pg (28.0-32.0); MEAN CORPUSCULAR VOLUME 91.6 fL (80.0-94.0); MEAN PLATELET VOLUME 8.2 fl (7.4-10.4); PLATELET 325 x1000/uL (130-400); RED BLOOD CELL COUNT 3.57 mill/uL (4.7-6.1); RED CELL DISTRIBUTION WIDTH 16.5 % (11.6-14.6)
[2017-11-23 08:09] VITALS: BP 134/68
[2017-11-23 08:29] LABS: CHLORIDE 99 mEq/L (98-107)
[2017-11-23] MEDS: FUROSEMIDE 100MG/10ML VIAL IVP SCH (08:31)
[2017-11-23] MEDS: LISINOPRIL 10MG TABLET PO SCH (08:32)
[2017-11-23] MEDS: POTASSIUM CHLORIDE 20MEQ TABLET SR PO SCH (08:32)
[2017-11-23] MEDS: FERROUS SULFATE 325MG TABLET PO SCH ×3 (08:32→17:15)
[2017-11-23] MEDS: ASPIRIN 81MG TABLET PO SCH (08:32)
[2017-11-23] MEDS: ENOXAPARIN 40MG/0.4ML SYR SUBCUT SCH ×2 (08:32→20:20)
[2017-11-23] MEDS: DOCUSATE SODIUM 100MG CAPSULE PO SCH ×2 (08:32→17:15)
[2017-11-23 09:23] LABS: PLATELET ESTIMATE NORMAL
[2017-11-23 12:30] VITALS: BP 111/62
[2017-11-23 16:00] VITALS: BP 124/71
[2017-11-23] MEDS: MONTELUKAST SODIUM 10MG TABLET PO SCH (17:15)
[2017-11-23 20:00] VITALS: BP 107/67
[2017-11-23] MEDS: ATORVASTATIN CALCIUM 10MG TABLET PO SCH (20:20)
[2017-11-24] VITALS (8 sets, daily range): BP systolic 105–122; BP diastolic 61–89
[2017-11-24] MEDS: MORPHINE SULFATE 4 MG/ML CPJ (NOT FOR IM USE) IV PRN ×3 (00:23→13:50)
[2017-11-24] MEDS: IPRATROPIUM/ALBUTEROL 0.5-3(2.5)MG/3ML NEB HHN SCH ×5 (01:10→16:00)
[2017-11-24] MEDS: METHYLPREDNISOLONE SOD SUCC 40 MG/ML VIAL IV SCH ×2 (05:00→13:01)
[2017-11-24 07:50] LABS: HEMATOCRIT. 33.6 % (42.0-52.0); HEMOGLOBIN. 10.8 g/dL (14.0-18.0); MEAN CORPUSCULAR HEMOGLOBIN 29.4 pg (28.0-32.0); MEAN CORPUSCULAR VOLUME 91.8 fL (80.0-94.0); MEAN PLATELET VOLUME 8.2 fl (7.4-10.4); PLATELET 311 x1000/uL (130-400); RED BLOOD CELL COUNT 3.66 mill/uL (4.7-6.1); RED CELL DISTRIBUTION WIDTH 16.9 % (11.6-14.6)
[2017-11-24 08:16] LABS: CHLORIDE 99 mEq/L (98-107)
[2017-11-24] MEDS: ASPIRIN 81MG TABLET PO SCH (08:16)
[2017-11-24] MEDS: DOCUSATE SODIUM 100MG CAPSULE PO SCH ×2 (08:17→18:04)
[2017-11-24] MEDS: POTASSIUM CHLORIDE 20MEQ TABLET SR PO SCH (08:17)
[2017-11-24] MEDS: ENOXAPARIN 40MG/0.4ML SYR SUBCUT SCH ×2 (08:20→20:17)
[2017-11-24] MEDS: LISINOPRIL 10MG TABLET PO SCH (08:20)
[2017-11-24] MEDS: FUROSEMIDE 100MG/10ML VIAL IVP SCH (08:20)
[2017-11-24] MEDS: FERROUS SULFATE 325MG TABLET PO SCH ×3 (08:27→18:04)
[2017-11-24 13:33] LABS: PLATELET ESTIMATE NORMAL
[2017-11-24] MEDS: MONTELUKAST SODIUM 10MG TABLET PO SCH (18:04)
[2017-11-24] MEDS: ATORVASTATIN CALCIUM 10MG TABLET PO SCH (20:15)
== END 2017-11-24 21:45 | disposition home or self-care (01) | DRG 140 ==
LOC: ER 10:13 → 8WST 12:03 → EDBEDREQTM 12:06 → EDBEDREQ 12:06 → ENRESERV 12:35 → ER 12:56
PROVIDERS: ADMIT Internal Medicine; ATTEND Internal Medicine
DX: J44.1 Chronic obstructive pulmonary disease with (acute) exacerbation (principal); J96.20 Acute and chronic respiratory failure, unspecified whether with hypoxia or hypercapnia; I50.23 Acute on chronic systolic (congestive) heart failure; E44.0 Moderate protein-calorie malnutrition; E66.01 Morbid (severe) obesity due to excess calories; I42.0 Dilated cardiomyopathy; Z68.43 Body mass index [BMI] 50.0-59.9, adult; Z99.81 Dependence on supplemental oxygen; E78.5 Hyperlipidemia, unspecified; F17.210 Nicotine dependence, cigarettes, uncomplicated; D64.9 Anemia, unspecified; G47.33 Obstructive sleep apnea (adult) (pediatric); F14.90 Cocaine use, unspecified, uncomplicated; R07.89 Other chest pain; I11.0 Hypertensive heart disease with heart failure; I49.3 Ventricular premature depolarization; Z82.49 Family history of ischemic heart disease and other diseases of the circulatory system; Z91.19 Patient's noncompliance with other medical treatment and regimen; Z88.6 Allergy status to analgesic agent; Z71.6 Tobacco abuse counseling; Z79.82 Long term (current) use of aspirin; Z79.899 Other long term (current) drug therapy
CPT/HCPCS: 36415; 71045; 80048; 80305; 82728; 83540; 83550; 83735; 83880; 84484; 85027; 90686; 93005; 93306; 94640; 96374; 96375; 99291; J1650; J1940; J2270; J2405; J2920; J7611; J7620

== ENCOUNTER 2017-12-30 09:27 | Inpatient (IN) | payer MEDICAID ==
[~2017-12-30] VITALS: Ht 165.1 cm; Wt 148.8 kg
[~2017-12-30 09:27] MED LIST changes: -FURO10VI3 IVP
[2017-12-30] MEDS ORDERED: ALBUTEROL (0.083%) 2.5MG/3ML NEB HHN STA (10:16)
[2017-12-30] MEDS ORDERED: METHYLPREDNISOLONE SOD SUCC 125 MG/2 ML VIAL IV STA (10:16)
[2017-12-30 10:49] LABS: BASOPHILS % 0.6 % (0.0-2.0); EOSINOPHILS % 0.3 % (0.0-5.0); HEMATOCRIT. 34.5 % (42.0-52.0); HEMOGLOBIN. 11.2 g/dL (14.0-18.0); LYMPHOCYTES % 12.3 % (20.0-50.0); MEAN CORPUSCULAR HEMOGLOBIN 29.1 pg (28.0-32.0); MEAN PLATELET VOLUME 7.9 fl (7.4-10.4); MONOCYTES % 9.8 % (2.0-8.0); PLATELET 262 x1000/uL (130-400); RED BLOOD CELL COUNT 3.84 mill/uL (4.7-6.1); RED CELL DISTRIBUTION WIDTH 17.2 % (11.6-14.6)
[2017-12-30 10:57] LABS: CHLORIDE 101 mEq/L (98-107)
[2017-12-30] MEDS ORDERED: PIPERACILLIN/TAZ 3.375G PREMIX 50 ML IV ONE ×2 (12:30→12:45)
[2017-12-30] MEDS ORDERED: PIPERACILLIN/TAZOBACTAM 3.375GM/50ML PREMIX IV ONE (12:30)
[2017-12-30] MEDS ORDERED: FUROSEMIDE 40MG/4ML VIAL IVP ONE (12:30)
[2017-12-30] MEDS ORDERED: VANCOMYCIN 1 G PREMIX 200 ML IV ONE (12:45)
[2017-12-30] MEDS ORDERED: SODIUM CHLORIDE 0.9% 1000ML BAG (SEPSIS BOLUS) IV ONE (12:45)
[2017-12-30] MEDS ORDERED: ACETAMINOPHEN 325MG TABLET PO PRN (13:45)
[2017-12-30] MEDS ORDERED: MAGNESIUM/ALUMINUM HYDROXIDE/SIMETHICONE 30ML UDC PO PRN (13:45)
[2017-12-30] MEDS ORDERED: ONDANSETRON HCL 4MG/2ML INJ IV PRN (13:45)
[2017-12-30] MEDS ORDERED: CLONIDINE 0.1MG TABLET PO PRN (13:45)
[2017-12-30] MEDS: HYDROCODONE/ACETAMINOPHEN 5/325MG TABLET PO PRN ×2 (14:50→20:43)
[2017-12-30 16:00] VITALS: BP 122/72
[2017-12-30] MEDS: FUROSEMIDE 40MG/4ML VIAL IV SCH (18:05)
[2017-12-30 18:59] VITALS: BP 122/73
[2017-12-30 20:00] VITALS: BP 121/76
[2017-12-30] MEDS: BUDESONIDE 0.5MG/2ML NEB HHN SCH (20:12)
[2017-12-30] MEDS: IPRATROPIUM/ALBUTEROL 0.5-3(2.5)MG/3ML NEB INH PRN (20:12)
[2017-12-30 20:15] LABS: CHLORIDE 100 mEq/L (98-107)
[2017-12-30 20:23] LABS: CREATINE KINASE 74 IU/L (39-308)
[2017-12-30 20:25] LABS: CREATINE KINASE MB FRACTION < 1.0 ng/mL (0.5-3.6)
[2017-12-30] MEDS: ENOXAPARIN 40MG/0.4ML SYR SUBCUT SCH (20:45)
[2017-12-31] VITALS: BP 113/78
[2017-12-31] MEDS ORDERED: VANCOMYCIN 1250MG in DEXTROSE 5% WATER 250ML IV SCH (02:00)
[2017-12-31] MEDS: HYDROCODONE/ACETAMINOPHEN 5/325MG TABLET PO PRN ×4 (03:15→19:52)
[2017-12-31 04:00] VITALS: BP 113/78
[2017-12-31 06:34] LABS: HEMATOCRIT. 33.4 % (42.0-52.0); HEMOGLOBIN. 10.9 g/dL (14.0-18.0); MEAN CORPUSCULAR HEMOGLOBIN 29.3 pg (28.0-32.0); MEAN CORPUSCULAR VOLUME 89.5 fL (80.0-94.0); MEAN PLATELET VOLUME 8.3 fl (7.4-10.4); PLATELET 278 x1000/uL (130-400); RED BLOOD CELL COUNT 3.73 mill/uL (4.7-6.1); RED CELL DISTRIBUTION WIDTH 17.6 % (11.6-14.6)
[2017-12-31 06:55] LABS: LDL CHOLESTEROL 117 mg/dL (5-100)
[2017-12-31 06:56] LABS: CREATINE KINASE 64 IU/L (39-308)
[2017-12-31 06:57] LABS: HDL CHOLESTEROL 30 mg/dL (40-59)
[2017-12-31 06:59] LABS: CREATINE KINASE MB FRACTION 1.1 ng/mL (0.5-3.6)
[2017-12-31 08:00] VITALS: BP 99/67
[2017-12-31] MEDS: BUDESONIDE 0.5MG/2ML NEB HHN SCH ×2 (08:19→21:04)
[2017-12-31] MEDS: IPRATROPIUM/ALBUTEROL 0.5-3(2.5)MG/3ML NEB INH PRN ×2 (08:19→21:04)
[2017-12-31] MEDS: DOCUSATE SODIUM 100MG CAPSULE PO PRN (09:03)
[2017-12-31] MEDS: ENOXAPARIN 40MG/0.4ML SYR SUBCUT SCH ×2 (09:04→20:13)
[2017-12-31] MEDS: FUROSEMIDE 40MG/4ML VIAL IV SCH ×2 (09:04→17:53)
[2017-12-31 12:00] VITALS: BP 112/61
[2017-12-31] MEDS ORDERED: LACTULOSE 20G/30ML UDC PO PRN (12:00)
[2017-12-31] MEDS ORDERED: LACTULOSE 20G/30ML UDC PO SCH (12:00)
[2017-12-31 12:35] LABS: NUCLEATED RED BLOOD CELLS 1 /100 WBC; PLATELET ESTIMATE NORMAL
[2017-12-31] MEDS: DOCUSATE SODIUM 250MG CAPSULE PO SCH (13:49)
[2017-12-31] MEDS: VANCOMYCIN 1250MG in DEXTROSE 5% WATER 250ML IV SCH ×2 (14:11→22:21)
[2017-12-31 16:00] VITALS: BP 121/63
[2017-12-31 19:51] VITALS: BP 118/72
[2017-12-31] MEDS ORDERED: LEVOFLOXACIN 750MG PREMIX 150 ML IV NR (20:00)
[2018-01-01] VITALS: BP 111/71
[2018-01-01 05:37] LABS: HEMATOCRIT. 35.9 % (42.0-52.0); HEMOGLOBIN. 11.6 g/dL (14.0-18.0); MEAN CORPUSCULAR HEMOGLOBIN 29.2 pg (28.0-32.0); MEAN CORPUSCULAR VOLUME 90.6 fL (80.0-94.0); MEAN PLATELET VOLUME 8.1 fl (7.4-10.4); PLATELET 294 x1000/uL (130-400); RED BLOOD CELL COUNT 3.97 mill/uL (4.7-6.1); RED CELL DISTRIBUTION WIDTH 17.1 % (11.6-14.6)
[2018-01-01 06:23] LABS: CHLORIDE 100 mEq/L (98-107)
[2018-01-01] MEDS: DOCUSATE SODIUM 100MG CAPSULE PO PRN (06:34)
[2018-01-01] MEDS: HYDROCODONE/ACETAMINOPHEN 5/325MG TABLET PO PRN ×3 (06:36→19:14)
[2018-01-01 08:00] VITALS: BP 119/79
[2018-01-01] MEDS: VANCOMYCIN 1250MG in DEXTROSE 5% WATER 250ML IV SCH (08:42)
[2018-01-01] MEDS: DOCUSATE SODIUM 250MG CAPSULE PO SCH (08:42)
[2018-01-01] MEDS: ENOXAPARIN 40MG/0.4ML SYR SUBCUT SCH ×2 (08:42→20:28)
[2018-01-01] MEDS: FUROSEMIDE 40MG/4ML VIAL IV SCH ×2 (08:42→17:08)
[2018-01-01] MEDS: IPRATROPIUM/ALBUTEROL 0.5-3(2.5)MG/3ML NEB INH PRN ×2 (09:40→21:17)
[2018-01-01] MEDS: BUDESONIDE 0.5MG/2ML NEB HHN SCH ×2 (09:40→21:17)
[2018-01-01 12:00] VITALS: BP 103/62
[2018-01-01 12:44] LABS: PLATELET ESTIMATE NORMAL
[2018-01-01 13:06] LABS: HIV SCREEN 4G Non Reactive (Non Reactive)
[2018-01-01] MEDS: AMLODIPINE 5MG TABLET PO SCH (13:30)
[2018-01-01] MEDS: LISINOPRIL 10MG TABLET PO SCH (13:30)
[2018-01-01] MEDS ORDERED: CEFAZOLIN 1000MG PREMIX 50 ML IV SCH (15:00)
[2018-01-01 16:00] VITALS: BP 103/56
[2018-01-01] MEDS: VANCOMYCIN 1 G PREMIX 200 ML IV SCH (17:08)
[2018-01-01 19:31] LABS: CLARITY URINE CLEAR (CLEAR); COLOR URINE YELLOW (YELLOW); KETONES URINE NEGATIVE (NEGATIVE); LEUKOCYTE ESTERASE URINE NEGATIVE (NEGATIVE); NITRITE URINE NEGATIVE (NEGATIVE); OCCULT BLOOD URINE NEGATIVE (NEGATIVE); PROTEIN URINE NEGATIVE (NEGATIVE); SPECIFIC GRAVITY URINE 1.018 (1.005-1.030); UROBILINOGEN URINE 0.2 E.U./dL (0.2-1.0)
[2018-01-01 19:55] LABS: *AMPHETAMINES SCREEN URINE NEGATIVE (NEGATIVE); *BARBITURATES SCREEN URINE NEGATIVE (NEGATIVE); *BENZODIAZEPINES SCREEN URINE NEGATIVE (NEGATIVE); *COCAINE SCREEN URINE NEGATIVE (NEGATIVE); METHADONE URINE SCREEN NEGATIVE (NEGATIVE); OPIATES URINE SCREEN PRESUMTIVE POSITIVE (NEGATIVE)
[2018-01-01 19:56] LABS: CANNABINOID URINE SCREEN NEGATIVE (NEGATIVE); PHENCYCLIDINE URINE SCREEN NEGATIVE (NEGATIVE)
[2018-01-01 20:00] VITALS: BP 122/57
[2018-01-01] MEDS ORDERED: LEVOFLOXACIN 500MG PREMIX 100 ML IV SCH (20:00)
[2018-01-01] MEDS ORDERED: ATORVASTATIN CALCIUM 10MG TABLET PO SCH (21:00)
[2018-01-01] MEDS ORDERED: CLOTRIMAZOLE 1% SOLUTION 10ML TOP SCH (21:00)
[2018-01-01] MEDS: CLOTRIMAZOLE 1% CREAM 30GM TOP SCH (21:13)
[2018-01-02] VITALS: BP 122/57
[2018-01-02] MEDS: AMLODIPINE 5MG TABLET PO SCH ×2 (00:47→09:00)
[2018-01-02] MEDS: HYDROCODONE/ACETAMINOPHEN 5/325MG TABLET PO PRN ×4 (00:52→17:20)
[2018-01-02] MEDS: VANCOMYCIN 1 G PREMIX 200 ML IV SCH ×3 (02:18→16:42)
[2018-01-02 04:00] VITALS: BP 142/88
[2018-01-02 06:24] LABS: CHLORIDE 102 mEq/L (98-107)
[2018-01-02 06:25] LABS: HEMATOCRIT. 34.5 % (42.0-52.0); MEAN CORPUSCULAR HEMOGLOBIN 29.1 pg (28.0-32.0); MEAN CORPUSCULAR VOLUME 90.9 fL (80.0-94.0); MEAN PLATELET VOLUME 7.9 fl (7.4-10.4); PLATELET 269 x1000/uL (130-400)
[2018-01-02 08:00] VITALS: BP 117/82
[2018-01-02] MEDS: LISINOPRIL 10MG TABLET PO SCH (09:00)
[2018-01-02] MEDS: FUROSEMIDE 40MG/4ML VIAL IV SCH ×2 (09:09→16:43)
[2018-01-02] MEDS: DOCUSATE SODIUM 250MG CAPSULE PO SCH (09:11)
[2018-01-02] MEDS: ENOXAPARIN 40MG/0.4ML SYR SUBCUT SCH (09:12)
[2018-01-02] MEDS: IPRATROPIUM/ALBUTEROL 0.5-3(2.5)MG/3ML NEB INH PRN (10:28)
[2018-01-02] MEDS: BUDESONIDE 0.5MG/2ML NEB HHN SCH (10:28)
[2018-01-02 12:00] VITALS: BP 114/79
[2018-01-02] MEDS: CLOTRIMAZOLE 1% CREAM 30GM TOP SCH (12:59)
[2018-01-02] MEDS ORDERED: FURO-151 MT (16:25)
[2018-01-02] MEDS ORDERED: CLOT15CR2 TOP (16:25)
[2018-01-02] MEDS ORDERED: DOXY150T MT (16:25)
[2018-01-02 17:06] LABS: PLATELET ESTIMATE NORMAL
[2018-01-02 19:51] VITALS: BP 117/75
== END 2018-01-02 20:11 | disposition home or self-care (01) | DRG 720 ==
LOC: EDBEDREQTM 12:28 → EDBEDREQ 12:28 → ER 14:10 → ENRESERV 15:55 → 5WST 16:50
PROVIDERS: ADMIT Internal Medicine; ATTEND Internal Medicine
DX: A41.9 Sepsis, unspecified organism (principal); J96.20 Acute and chronic respiratory failure, unspecified whether with hypoxia or hypercapnia; I50.43 Acute on chronic combined systolic (congestive) and diastolic (congestive) heart failure; E44.0 Moderate protein-calorie malnutrition; J18.1 Lobar pneumonia, unspecified organism; E66.2 Morbid (severe) obesity with alveolar hypoventilation; I11.0 Hypertensive heart disease with heart failure; Z99.81 Dependence on supplemental oxygen; D64.9 Anemia, unspecified; E11.9 Type 2 diabetes mellitus without complications; I48.91 Unspecified atrial fibrillation; J44.0 Chronic obstructive pulmonary disease with (acute) lower respiratory infection; M94.0 Chondrocostal junction syndrome [Tietze]; F11.10 Opioid abuse, uncomplicated; L02.213 Cutaneous abscess of chest wall; L73.2 Hidradenitis suppurativa; N61.1 Abscess of the breast and nipple; Z82.49 Family history of ischemic heart disease and other diseases of the circulatory system; Z68.43 Body mass index [BMI] 50.0-59.9, adult; Z91.19 Patient's noncompliance with other medical treatment and regimen; Z88.6 Allergy status to analgesic agent; Z79.82 Long term (current) use of aspirin; Z79.899 Other long term (current) drug therapy
CPT/HCPCS: 36415; 71045; 76604; 80048; 80061; 80202; 80305; 82550; 82553; 83036; 83605; 83735; 83880; 84443; 84484; 87070; 87389; 93005; 93970; 94640; 94644; 96365; 96375; 99291; J0690; J1650; J1940; J1956; J2543; J2930; J3370; J7030; J7050; J7060; J7611; J7620; J7626

== ENCOUNTER 2018-01-09 15:57 | Inpatient (IN) | payer MEDICAID ==
[~2018-01-09] VITALS: Ht 165.1 cm; Wt 147.4 kg
[~2018-01-09 15:57] MED LIST changes: +CLOT15CR2 TOP; +DOXY150T MT; +FURO-151 MT; -POTA20TA82 PO
[2018-01-09] MEDS ORDERED: ASPIRIN 81MG TABLET PO ONE (16:45)
[2018-01-09] MEDS ORDERED: NITROGLYCERIN 0.4MG TABLET SL SL PRN (16:45)
[2018-01-09 17:47] LABS: BASOPHILS % 0.8 % (0.0-2.0); EOSINOPHILS % 0.1 % (0.0-5.0); HEMATOCRIT. 34.2 % (42.0-52.0); LYMPHOCYTES % 15.2 % (20.0-50.0); MEAN CORPUSCULAR HEMOGLOBIN 28.7 pg (28.0-32.0); MEAN CORPUSCULAR VOLUME 89.4 fL (80.0-94.0); MEAN PLATELET VOLUME 8.2 fl (7.4-10.4); MONOCYTES % 11.7 % (2.0-8.0); NEUTROPHILS % 72.2 % (40.0-76.0); PLATELET 317 x1000/uL (130-400); RED BLOOD CELL COUNT 3.82 mill/uL (4.7-6.1); RED CELL DISTRIBUTION WIDTH 17.7 % (11.6-14.6)
[2018-01-09 17:50] LABS: CHLORIDE 105 mEq/L (98-107)
[2018-01-09] MEDS ORDERED: HYDRALAZINE 20MG/ML VIAL IV ONE (18:00)
[2018-01-09] MEDS ORDERED: FUROSEMIDE 40MG/4ML VIAL IVP ONE (18:00)
[2018-01-09] MEDS ORDERED: ALBUTEROL (0.083%) 2.5MG/3ML NEB HHN ONE (18:45)
[2018-01-09 22:00] VITALS: BP 146/95
[2018-01-09] MEDS ORDERED: GUAIFENESIN 200MG/10ML SUGAR FREE UDC PO PRN (22:00)
[2018-01-09] MEDS ORDERED: DOCUSATE SODIUM 100MG CAPSULE PO PRN (22:00)
[2018-01-09] MEDS ORDERED: ENOXAPARIN 40MG/0.4ML SYR SUBCUT SCH (22:00)
[2018-01-09] MEDS ORDERED: ACETAMINOPHEN 325MG TABLET PO PRN (22:00)
[2018-01-09] MEDS ORDERED: MAGNESIUM/ALUMINUM HYDROXIDE/SIMETHICONE 30ML UDC PO PRN (22:00)
[2018-01-09] MEDS ORDERED: CLONIDINE 0.1MG TABLET PO PRN (22:00)
[2018-01-09] MEDS ORDERED: ONDANSETRON HCL 4MG/2ML INJ IV PRN (22:00)
[2018-01-09] MEDS: HYDROCODONE/ACETAMINOPHEN 5/325MG TABLET PO PRN (22:41)
[2018-01-09] MEDS: IPRATROPIUM/ALBUTEROL 0.5-3(2.5)MG/3ML NEB INH PRN (23:10)
[2018-01-10] VITALS: BP 127/89
[2018-01-10 00:50] LABS: CHLORIDE 106 mEq/L (98-107)
[2018-01-10 01:00] LABS: CREATINE KINASE 70 IU/L (39-308)
[2018-01-10 01:02] LABS: CREATINE KINASE MB FRACTION < 1.0 ng/mL (0.5-3.6)
[2018-01-10] MEDS: IPRATROPIUM/ALBUTEROL 0.5-3(2.5)MG/3ML NEB INH PRN ×3 (03:50→21:36)
[2018-01-10 04:00] VITALS: BP 108/60
[2018-01-10] MEDS: HYDROCODONE/ACETAMINOPHEN 5/325MG TABLET PO PRN ×3 (05:53→21:49)
[2018-01-10 07:55] LABS: BASOPHILS % 0.4 % (0.0-2.0); EOSINOPHILS % 0.2 % (0.0-5.0); HEMATOCRIT. 31.8 % (42.0-52.0); HEMOGLOBIN. 10.4 g/dL (14.0-18.0); LYMPHOCYTES % 15.5 % (20.0-50.0); MEAN CORPUSCULAR HEMOGLOBIN 29.3 pg (28.0-32.0); MEAN CORPUSCULAR VOLUME 89.6 fL (80.0-94.0); MONOCYTES % 10.9 % (2.0-8.0); PLATELET 288 x1000/uL (130-400); RED BLOOD CELL COUNT 3.55 mill/uL (4.7-6.1); RED CELL DISTRIBUTION WIDTH 17.5 % (11.6-14.6)
[2018-01-10 08:00] VITALS: BP 99/66
[2018-01-10] MEDS: FUROSEMIDE 40MG/4ML VIAL IV SCH ×2 (08:28→21:48)
[2018-01-10] MEDS: ENOXAPARIN 40MG/0.4ML SYR SUBCUT SCH ×2 (08:29→21:53)
[2018-01-10 12:00] VITALS: BP 123/87
[2018-01-10 15:08] LABS: LDL CHOLESTEROL 95 mg/dL (5-100)
[2018-01-10 15:09] LABS: CREATINE KINASE 70 IU/L (39-308); HDL CHOLESTEROL 26 mg/dL (40-59)
[2018-01-10 15:10] LABS: CREATINE KINASE MB FRACTION < 1.0 ng/mL (0.5-3.6)
[2018-01-10] MEDS: POTASSIUM CHLORIDE 20MEQ TABLET SR PO SCH (15:26)
[2018-01-10] MEDS: SPIRONOLACTONE 25MG TABLET PO SCH (15:27)
[2018-01-10 16:00] VITALS: BP 99/60
[2018-01-10] MEDS: CARVEDILOL 3.125 MG TABLET PO SCH (21:00)
[2018-01-10] MEDS: LISINOPRIL 10MG TABLET PO SCH (21:00)
[2018-01-11 00:30] VITALS: BP 96/56
[2018-01-11] MEDS: IPRATROPIUM/ALBUTEROL 0.5-3(2.5)MG/3ML NEB INH PRN ×4 (00:37→15:24)
[2018-01-11 04:00] VITALS: BP 99/68
[2018-01-11] MEDS: HYDROCODONE/ACETAMINOPHEN 5/325MG TABLET PO PRN ×3 (06:45→22:09)
[2018-01-11 07:23] LABS: BASOPHILS % 0.3 % (0.0-2.0); EOSINOPHILS % 0.7 % (0.0-5.0); HEMATOCRIT. 33.4 % (42.0-52.0); HEMOGLOBIN. 10.8 g/dL (14.0-18.0); LYMPHOCYTES % 17.6 % (20.0-50.0); MEAN CORPUSCULAR HEMOGLOBIN 29.2 pg (28.0-32.0); MEAN PLATELET VOLUME 7.8 fl (7.4-10.4); MONOCYTES % 10.4 % (2.0-8.0); PLATELET 294 x1000/uL (130-400); RED BLOOD CELL COUNT 3.71 mill/uL (4.7-6.1); RED CELL DISTRIBUTION WIDTH 17.5 % (11.6-14.6)
[2018-01-11 08:00] VITALS: BP 105/67
[2018-01-11] MEDS: CARVEDILOL 3.125 MG TABLET PO SCH ×2 (08:27→21:00)
[2018-01-11] MEDS: LISINOPRIL 10MG TABLET PO SCH ×2 (08:28→21:00)
[2018-01-11] MEDS: FUROSEMIDE 40MG/4ML VIAL IV SCH ×2 (08:29→21:00)
[2018-01-11] MEDS: ENOXAPARIN 40MG/0.4ML SYR SUBCUT SCH ×2 (08:30→22:10)
[2018-01-11] MEDS: POTASSIUM CHLORIDE 20MEQ TABLET SR PO SCH (08:30)
[2018-01-11] MEDS: SPIRONOLACTONE 25MG TABLET PO SCH (08:30)
[2018-01-11 08:41] LABS: CHLORIDE 102 mEq/L (98-107)
[2018-01-11 12:00] VITALS: BP 91/62
[2018-01-11 16:00] VITALS: BP 100/62
[2018-01-11] MEDS ORDERED: IPRATROPIUM/ALBUTEROL 0.5-3(2.5)MG/3ML NEB INH SCH (16:00)
[2018-01-11] MEDS: ASPIRIN 81MG TABLET PO SCH (17:03)
[2018-01-11] MEDS: ATORVASTATIN CALCIUM 10MG TABLET PO SCH (17:03)
[2018-01-11] MEDS: MONTELUKAST SODIUM 10MG TABLET PO SCH (17:03)
[2018-01-11] MEDS: IPRATROPIUM/ALBUTEROL 0.5-3(2.5)MG/3ML NEB INH SCH ×2 (20:40→23:42)
[2018-01-11] MEDS ORDERED: DOXYCYCLINE HYCLATE 100MG CAPSULE PO SCH (21:00)
[2018-01-11] MEDS: DOXYCYCLINE HYCLATE 100MG CAPSULE PO SCH (22:09)
[2018-01-11] MEDS: CLOTRIMAZOLE 1% CREAM 30GM TOP SCH (22:10)
[2018-01-12 00:02] VITALS: BP 102/48
[2018-01-12] MEDS: IPRATROPIUM/ALBUTEROL 0.5-3(2.5)MG/3ML NEB INH SCH ×6 (03:33→23:09)
[2018-01-12 04:00] VITALS: BP 104/66
[2018-01-12 07:30] LABS: BASOPHILS % 0.3 % (0.0-2.0); EOSINOPHILS % 1.1 % (0.0-5.0); HEMATOCRIT. 32.2 % (42.0-52.0); HEMOGLOBIN. 10.3 g/dL (14.0-18.0); LYMPHOCYTES % 14.1 % (20.0-50.0); MEAN CORPUSCULAR VOLUME 90.8 fL (80.0-94.0); MEAN PLATELET VOLUME 8.2 fl (7.4-10.4); MONOCYTES % 10.4 % (2.0-8.0); NEUTROPHILS % 74.1 % (40.0-76.0); PLATELET 271 x1000/uL (130-400); RED BLOOD CELL COUNT 3.55 mill/uL (4.7-6.1); RED CELL DISTRIBUTION WIDTH 17.5 % (11.6-14.6)
[2018-01-12 08:00] VITALS: BP 136/61
[2018-01-12 09:30] LABS: CHLORIDE 103 mEq/L (98-107)
[2018-01-12] MEDS: POTASSIUM CHLORIDE 20MEQ TABLET SR PO SCH (09:39)
[2018-01-12] MEDS: ENOXAPARIN 40MG/0.4ML SYR SUBCUT SCH ×2 (09:39→20:57)
[2018-01-12] MEDS: CARVEDILOL 3.125 MG TABLET PO SCH ×2 (09:40→20:57)
[2018-01-12] MEDS: DOXYCYCLINE HYCLATE 100MG CAPSULE PO SCH ×2 (09:40→18:06)
[2018-01-12] MEDS: ASPIRIN 81MG TABLET PO SCH (09:40)
[2018-01-12] MEDS: LISINOPRIL 10MG TABLET PO SCH ×2 (09:41→20:58)
[2018-01-12] MEDS: FUROSEMIDE 40MG/4ML VIAL IV SCH ×2 (09:41→20:57)
[2018-01-12] MEDS: CLOTRIMAZOLE 1% CREAM 30GM TOP SCH ×2 (09:41→20:58)
[2018-01-12] MEDS: ATORVASTATIN CALCIUM 10MG TABLET PO SCH (09:44)
[2018-01-12] MEDS: SPIRONOLACTONE 25MG TABLET PO SCH (09:45)
[2018-01-12 12:00] VITALS: BP 112/73
[2018-01-12 16:00] VITALS: BP 119/78
[2018-01-12] MEDS: MONTELUKAST SODIUM 10MG TABLET PO SCH (18:06)
[2018-01-12] MEDS: HYDROCODONE/ACETAMINOPHEN 5/325MG TABLET PO PRN ×2 (18:08→22:36)
[2018-01-12 20:00] VITALS: BP 118/47
[2018-01-13] VITALS: BP 113/79
[2018-01-13] MEDS: IPRATROPIUM/ALBUTEROL 0.5-3(2.5)MG/3ML NEB INH SCH ×5 (01:48→21:22)
[2018-01-13 04:00] VITALS: BP 113/59
[2018-01-13 06:25] LABS: BASOPHILS % 0.4 % (0.0-2.0); EOSINOPHILS % 0.7 % (0.0-5.0); HEMATOCRIT. 33.3 % (42.0-52.0); HEMOGLOBIN. 10.7 g/dL (14.0-18.0); LYMPHOCYTES % 15.6 % (20.0-50.0); MEAN CORPUSCULAR HEMOGLOBIN 29.3 pg (28.0-32.0); MEAN CORPUSCULAR VOLUME 91.3 fL (80.0-94.0); MEAN PLATELET VOLUME 8.3 fl (7.4-10.4); MONOCYTES % 10.5 % (2.0-8.0); NEUTROPHILS % 72.8 % (40.0-76.0); PLATELET 280 x1000/uL (130-400); RED BLOOD CELL COUNT 3.65 mill/uL (4.7-6.1); RED CELL DISTRIBUTION WIDTH 17.7 % (11.6-14.6)
[2018-01-13 06:45] LABS: CHLORIDE 103 mEq/L (98-107)
[2018-01-13] MEDS: HYDROCODONE/ACETAMINOPHEN 5/325MG TABLET PO PRN ×2 (07:48→17:31)
[2018-01-13 08:00] VITALS: BP 113/74
[2018-01-13] MEDS: ASPIRIN 81MG TABLET PO SCH (09:00)
[2018-01-13] MEDS: POTASSIUM CHLORIDE 20MEQ TABLET SR PO SCH (09:00)
[2018-01-13] MEDS: LISINOPRIL 10MG TABLET PO SCH ×2 (09:00→20:34)
[2018-01-13] MEDS: DOXYCYCLINE HYCLATE 100MG CAPSULE PO SCH (09:00)
[2018-01-13] MEDS: CLOTRIMAZOLE 1% CREAM 30GM TOP SCH ×2 (09:00→20:15)
[2018-01-13] MEDS: ENOXAPARIN 40MG/0.4ML SYR SUBCUT SCH ×2 (09:00→20:15)
[2018-01-13] MEDS: FUROSEMIDE 40MG/4ML VIAL IV SCH ×2 (09:00→20:15)
[2018-01-13] MEDS: SPIRONOLACTONE 25MG TABLET PO SCH (09:00)
[2018-01-13] MEDS: CARVEDILOL 3.125 MG TABLET PO SCH ×2 (09:00→20:34)
[2018-01-13 12:00] VITALS: BP 104/68
[2018-01-13 16:00] VITALS: BP 108/70
[2018-01-13] MEDS: MONTELUKAST SODIUM 10MG TABLET PO SCH (17:31)
[2018-01-13] MEDS: ATORVASTATIN CALCIUM 10MG TABLET PO SCH (17:31)
[2018-01-13 20:00] VITALS: BP 109/70
[2018-01-14] VITALS: BP 91/56
[2018-01-14] MEDS: IPRATROPIUM/ALBUTEROL 0.5-3(2.5)MG/3ML NEB INH SCH ×6 (01:10→21:10)
[2018-01-14] MEDS: HYDROCODONE/ACETAMINOPHEN 5/325MG TABLET PO PRN ×3 (03:58→20:42)
[2018-01-14 04:00] VITALS: BP 98/62
[2018-01-14 06:42] LABS: BASOPHILS % 0.3 % (0.0-2.0); EOSINOPHILS % 0.9 % (0.0-5.0); HEMATOCRIT. 32.3 % (42.0-52.0); HEMOGLOBIN. 10.5 g/dL (14.0-18.0); LYMPHOCYTES % 16.6 % (20.0-50.0); MEAN CORPUSCULAR HEMOGLOBIN 29.1 pg (28.0-32.0); MEAN CORPUSCULAR VOLUME 89.8 fL (80.0-94.0); MEAN PLATELET VOLUME 8.1 fl (7.4-10.4); MONOCYTES % 11.2 % (2.0-8.0); PLATELET 284 x1000/uL (130-400); RED CELL DISTRIBUTION WIDTH 17.7 % (11.6-14.6)
[2018-01-14 06:55] LABS: CHLORIDE 102 mEq/L (98-107)
[2018-01-14 07:57] VITALS: BP 104/69
[2018-01-14] MEDS: LISINOPRIL 10MG TABLET PO SCH ×2 (09:00→20:41)
[2018-01-14] MEDS: CARVEDILOL 3.125 MG TABLET PO SCH ×2 (09:00→20:41)
[2018-01-14] MEDS: CLOTRIMAZOLE 1% CREAM 30GM TOP SCH ×2 (09:03→20:45)
[2018-01-14] MEDS: FUROSEMIDE 40MG/4ML VIAL IV SCH ×2 (09:03→20:41)
[2018-01-14] MEDS: ENOXAPARIN 40MG/0.4ML SYR SUBCUT SCH ×2 (09:03→20:46)
[2018-01-14] MEDS: POTASSIUM CHLORIDE 20MEQ TABLET SR PO SCH (09:04)
[2018-01-14] MEDS: SPIRONOLACTONE 25MG TABLET PO SCH (09:04)
[2018-01-14] MEDS: ASPIRIN 81MG TABLET PO SCH (09:04)
[2018-01-14] MEDS: ATORVASTATIN CALCIUM 10MG TABLET PO SCH (09:06)
[2018-01-14 12:06] VITALS: BP 96/57
[2018-01-14 15:42] VITALS: BP 96/56
[2018-01-14] MEDS: MONTELUKAST SODIUM 10MG TABLET PO SCH (18:25)
[2018-01-14 20:00] VITALS: BP 123/74
[2018-01-15] VITALS: BP 108/72
[2018-01-15] MEDS: IPRATROPIUM/ALBUTEROL 0.5-3(2.5)MG/3ML NEB INH SCH ×5 (01:35→16:27)
[2018-01-15 04:00] VITALS: BP 109/58
[2018-01-15] MEDS: HYDROCODONE/ACETAMINOPHEN 5/325MG TABLET PO PRN ×3 (06:24→18:27)
[2018-01-15 08:10] LABS: HEMOGLOBIN. 10.5 g/dL (14.0-18.0); MEAN CORPUSCULAR HEMOGLOBIN 28.7 pg (28.0-32.0); MEAN CORPUSCULAR VOLUME 90.4 fL (80.0-94.0); MEAN PLATELET VOLUME 8.3 fl (7.4-10.4); PLATELET 273 x1000/uL (130-400); RED BLOOD CELL COUNT 3.66 mill/uL (4.7-6.1); RED CELL DISTRIBUTION WIDTH 17.6 % (11.6-14.6)
[2018-01-15 08:23] VITALS: BP 109/75
[2018-01-15 09:29] LABS: CHLORIDE 101 mEq/L (98-107)
[2018-01-15] MEDS: ATORVASTATIN CALCIUM 10MG TABLET PO SCH (09:46)
[2018-01-15] MEDS: POTASSIUM CHLORIDE 20MEQ TABLET SR PO SCH (09:46)
[2018-01-15] MEDS: SPIRONOLACTONE 25MG TABLET PO SCH (09:47)
[2018-01-15] MEDS: FUROSEMIDE 40MG/4ML VIAL IV SCH (09:47)
[2018-01-15] MEDS: ASPIRIN 81MG TABLET PO SCH (09:47)
[2018-01-15] MEDS: CLOTRIMAZOLE 1% CREAM 30GM TOP SCH (09:48)
[2018-01-15] MEDS: LISINOPRIL 10MG TABLET PO SCH (09:48)
[2018-01-15] MEDS: CARVEDILOL 3.125 MG TABLET PO SCH (09:48)
[2018-01-15] MEDS: ENOXAPARIN 40MG/0.4ML SYR SUBCUT SCH (09:48)
[2018-01-15 10:09] LABS: PLATELET ESTIMATE NORMAL
[2018-01-15 12:49] VITALS: BP 92/53
[2018-01-15 17:18] VITALS: BP 99/59
[2018-01-15 18:27] VITALS: BP 99/59
== END 2018-01-15 18:20 | disposition home or self-care (01) | DRG 133 ==
LOC: ER 15:57 → 7WST 18:46 → EDBEDREQ 18:49 → ENRESERV 20:19
PROVIDERS: ADMIT Internal Medicine; ATTEND Internal Medicine
DX: J96.20 Acute and chronic respiratory failure, unspecified whether with hypoxia or hypercapnia (principal); R65.11 Systemic inflammatory response syndrome (SIRS) of non-infectious origin with acute organ dysfunction; I50.21 Acute systolic (congestive) heart failure; J18.1 Lobar pneumonia, unspecified organism; E44.0 Moderate protein-calorie malnutrition; I27.20 Pulmonary hypertension, unspecified; I11.0 Hypertensive heart disease with heart failure; E66.01 Morbid (severe) obesity due to excess calories; I42.0 Dilated cardiomyopathy; J44.0 Chronic obstructive pulmonary disease with (acute) lower respiratory infection; Z68.43 Body mass index [BMI] 50.0-59.9, adult; J45.909 Unspecified asthma, uncomplicated; L73.2 Hidradenitis suppurativa; N61.1 Abscess of the breast and nipple; F14.90 Cocaine use, unspecified, uncomplicated; D64.9 Anemia, unspecified; Z79.82 Long term (current) use of aspirin; G47.33 Obstructive sleep apnea (adult) (pediatric); M94.0 Chondrocostal junction syndrome [Tietze]; Z82.49 Family history of ischemic heart disease and other diseases of the circulatory system; Z87.891 Personal history of nicotine dependence; Z91.19 Patient's noncompliance with other medical treatment and regimen; Z99.81 Dependence on supplemental oxygen; Z88.6 Allergy status to analgesic agent; Z79.899 Other long term (current) drug therapy
CPT/HCPCS: 36415; 71045; 80048; 80061; 82550; 82553; 83735; 83880; 84443; 84484; 93005; 93970; 94640; 96374; 99291; A6261; J0360; J1650; J1940; J7620

== ENCOUNTER 2018-02-04 06:39 | Inpatient (IN) | payer MEDICAID ==
[~2018-02-04] VITALS: Ht 165.1 cm; Wt 148.8 kg
[2018-02-04] MEDS ORDERED: METHYLPREDNISOLONE SOD SUCC 125 MG/2 ML VIAL IV STA (07:17)
[2018-02-04] MEDS ORDERED: IPRATROPIUM/ALBUTEROL 0.5-3(2.5)MG/3ML NEB HHN ONE (07:30)
[2018-02-04 08:00] LABS: BASOPHILS % 0.6 % (0.0-2.0); EOSINOPHILS % 0.8 % (0.0-5.0); HEMATOCRIT. 34.9 % (42.0-52.0); HEMOGLOBIN. 10.9 g/dL (14.0-18.0); MEAN CORPUSCULAR HEMOGLOBIN 28.7 pg (28.0-32.0); MEAN CORPUSCULAR VOLUME 91.6 fL (80.0-94.0); MEAN PLATELET VOLUME 7.9 fl (7.4-10.4); NEUTROPHILS % 69.6 % (40.0-76.0); PLATELET 307 x1000/uL (130-400); RED BLOOD CELL COUNT 3.81 mill/uL (4.7-6.1); RED CELL DISTRIBUTION WIDTH 18.5 % (11.6-14.6)
[2018-02-04 08:07] LABS: CHLORIDE 107 mEq/L (98-107)
[2018-02-04 08:09] LABS: INR 1.1; PARTIAL THROMBOPLASTIN TIME 27.1 sec (23.4-31.0); PROTHROMBIN TIME 11.4 sec (9.1-11.1)
[2018-02-04] MEDS ORDERED: FUROSEMIDE 40MG/4ML VIAL IVP SCH (09:00)
[2018-02-04] MEDS ORDERED: ACETAMINOPHEN 325MG TABLET PO ONE (09:45)
[2018-02-04] MEDS ORDERED: SACU1TAB PO (10:33)
[2018-02-04 10:36] VITALS: BP 126/79
[2018-02-04] MEDS ORDERED: ACETAMINOPHEN 325MG TABLET PO PRN (11:00)
[2018-02-04] MEDS ORDERED: ONDANSETRON HCL 4MG TABLET PO PRN (11:00)
[2018-02-04] MEDS: FUROSEMIDE 100MG/10ML VIAL IVP SCH ×2 (13:06→17:01)
[2018-02-04] MEDS: ENOXAPARIN 40MG/0.4ML SYR SUBCUT SCH ×2 (13:07→21:18)
[2018-02-04] MEDS: LOSARTAN POTASSIUM 25 MG TABLET PO SCH (13:07)
[2018-02-04] MEDS: HYDROCODONE/ACETAMINOPHEN 5/325MG TABLET PO PRN ×3 (13:23→21:56)
[2018-02-04] MEDS: BUDESONIDE 0.5MG/2ML NEB HHN SCH (15:01)
[2018-02-04 15:44] VITALS: BP 104/46
[2018-02-04 18:55] LABS: CLARITY URINE CLEAR (CLEAR); COLOR URINE YELLOW (YELLOW); KETONES URINE NEGATIVE (NEGATIVE); LEUKOCYTE ESTERASE URINE NEGATIVE (NEGATIVE); NITRITE URINE NEGATIVE (NEGATIVE); OCCULT BLOOD URINE NEGATIVE (NEGATIVE); PH URINE 6.5 (4.5-8.0); PROTEIN URINE NEGATIVE (NEGATIVE); SPECIFIC GRAVITY URINE 1.005 (1.005-1.030); UROBILINOGEN URINE 0.2 E.U./dL (0.2-1.0)
[2018-02-04 19:07] LABS: *AMPHETAMINES SCREEN URINE NEGATIVE (NEGATIVE); *BARBITURATES SCREEN URINE NEGATIVE (NEGATIVE); *BENZODIAZEPINES SCREEN URINE NEGATIVE (NEGATIVE); *COCAINE SCREEN URINE NEGATIVE (NEGATIVE)
[2018-02-04 19:08] LABS: CANNABINOID URINE SCREEN NEGATIVE (NEGATIVE); METHADONE URINE SCREEN NEGATIVE (NEGATIVE); OPIATES URINE SCREEN NEGATIVE (NEGATIVE); PHENCYCLIDINE URINE SCREEN NEGATIVE (NEGATIVE)
[2018-02-04 20:00] VITALS: BP 116/73
[2018-02-04] MEDS: CARVEDILOL 12.5MG TABLET PO SCH (21:17)
[2018-02-05] VITALS: BP 111/70
[2018-02-05] MEDS: BUDESONIDE 0.5MG/2ML NEB HHN SCH ×3 (02:49→20:12)
[2018-02-05] MEDS: IPRATROPIUM/ALBUTEROL 0.5-3(2.5)MG/3ML NEB HHN PRN ×3 (02:49→20:12)
[2018-02-05] MEDS: HYDROCODONE/ACETAMINOPHEN 5/325MG TABLET PO PRN ×4 (03:23→20:57)
[2018-02-05 04:00] VITALS: BP 114/71
[2018-02-05] MEDS: FUROSEMIDE 100MG/10ML VIAL IVP SCH ×2 (06:35→15:56)
[2018-02-05 07:07] LABS: CHLORIDE 99 mEq/L (98-107)
[2018-02-05 07:26] LABS: HEMOGLOBIN. 10.7 g/dL (14.0-18.0); MEAN CORPUSCULAR HEMOGLOBIN 28.5 pg (28.0-32.0); MEAN CORPUSCULAR VOLUME 90.4 fL (80.0-94.0); PLATELET 329 x1000/uL (130-400); RED BLOOD CELL COUNT 3.76 mill/uL (4.7-6.1); RED CELL DISTRIBUTION WIDTH 18.4 % (11.6-14.6)
[2018-02-05 08:22] VITALS: BP 115/80
[2018-02-05] MEDS: LOSARTAN POTASSIUM 25 MG TABLET PO SCH (09:01)
[2018-02-05] MEDS: CARVEDILOL 12.5MG TABLET PO SCH ×2 (09:02→20:56)
[2018-02-05] MEDS: ENOXAPARIN 40MG/0.4ML SYR SUBCUT SCH ×2 (09:02→20:58)
[2018-02-05 12:00] VITALS: BP_SYST 108; BP_SYST 127; BP_DIAS 65; BP_DIAS 72
[2018-02-05 13:00] LABS: PLATELET ESTIMATE NORMAL
[2018-02-05 16:00] VITALS: BP 101/69
[2018-02-05] MEDS: LEVOFLOXACIN 250MG TABLET PO SCH (18:47)
[2018-02-05 20:00] VITALS: BP 108/68
[2018-02-06] VITALS: BP 124/79
[2018-02-06 04:00] VITALS: BP 114/70
[2018-02-06] MEDS: HYDROCODONE/ACETAMINOPHEN 5/325MG TABLET PO PRN ×2 (05:58→11:56)
[2018-02-06] MEDS: FUROSEMIDE 100MG/10ML VIAL IVP SCH (06:15)
[2018-02-06 06:43] LABS: BASOPHILS % 0.3 % (0.0-2.0); EOSINOPHILS % 0.1 % (0.0-5.0); HEMATOCRIT. 34.2 % (42.0-52.0); HEMOGLOBIN. 10.7 g/dL (14.0-18.0); LYMPHOCYTES % 10.1 % (20.0-50.0); MEAN CORPUSCULAR HEMOGLOBIN 28.5 pg (28.0-32.0); MEAN CORPUSCULAR VOLUME 91.1 fL (80.0-94.0); MEAN PLATELET VOLUME 8.1 fl (7.4-10.4); MONOCYTES % 9.5 % (2.0-8.0); PLATELET 329 x1000/uL (130-400); RED BLOOD CELL COUNT 3.75 mill/uL (4.7-6.1); RED CELL DISTRIBUTION WIDTH 18.5 % (11.6-14.6)
[2018-02-06 07:12] LABS: CHLORIDE 101 mEq/L (98-107)
[2018-02-06] MEDS: IPRATROPIUM/ALBUTEROL 0.5-3(2.5)MG/3ML NEB HHN PRN (07:16)
[2018-02-06] MEDS: BUDESONIDE 0.5MG/2ML NEB HHN SCH (07:16)
[2018-02-06 08:00] VITALS: BP 92/48
[2018-02-06] MEDS: CARVEDILOL 12.5MG TABLET PO SCH (08:39)
[2018-02-06] MEDS: LOSARTAN POTASSIUM 25 MG TABLET PO SCH (08:39)
[2018-02-06] MEDS: LEVOFLOXACIN 250MG TABLET PO SCH (11:52)
[2018-02-06] MEDS: ENOXAPARIN 40MG/0.4ML SYR SUBCUT SCH (11:52)
[2018-02-06 12:00] VITALS: BP 107/66
[2018-02-06 15:05] VITALS: BP 107/66
== END 2018-02-06 16:22 | disposition home or self-care (01) | DRG 139 ==
LOC: ER 06:39 → 5WST 09:04 → EDBEDREQ 09:07 → ENRESERV 09:26
PROVIDERS: ADMIT Internal Medicine; ATTEND Internal Medicine
DX: J18.9 Pneumonia, unspecified organism (principal); I50.23 Acute on chronic systolic (congestive) heart failure; J96.10 Chronic respiratory failure, unspecified whether with hypoxia or hypercapnia; I42.9 Cardiomyopathy, unspecified; E44.0 Moderate protein-calorie malnutrition; I11.0 Hypertensive heart disease with heart failure; E66.01 Morbid (severe) obesity due to excess calories; D64.9 Anemia, unspecified; E11.9 Type 2 diabetes mellitus without complications; E78.5 Hyperlipidemia, unspecified; F17.210 Nicotine dependence, cigarettes, uncomplicated; D72.829 Elevated white blood cell count, unspecified; F14.90 Cocaine use, unspecified, uncomplicated; J44.0 Chronic obstructive pulmonary disease with (acute) lower respiratory infection; L30.4 Erythema intertrigo; L73.2 Hidradenitis suppurativa; Z91.11 Patient's noncompliance with dietary regimen; Z91.19 Patient's noncompliance with other medical treatment and regimen; Z99.81 Dependence on supplemental oxygen; Z68.43 Body mass index [BMI] 50.0-59.9, adult; Z88.0 Allergy status to penicillin; Z79.82 Long term (current) use of aspirin; Z79.899 Other long term (current) drug therapy
CPT/HCPCS: 36415; 71045; 80048; 80305; 83880; 84484; 93005; 93970; 94640; 96374; 96375; 99285; J1650; J1940; J2930; J7620; J7626

== ENCOUNTER 2018-02-14 13:58 | Inpatient (IN) | payer MEDICAID ==
[~2018-02-14] VITALS: Ht 165.1 cm; Wt 148.3 kg
[~2018-02-14 13:58] MED LIST changes: +SACU1TAB PO
[2018-02-14] MEDS ORDERED: ASPIRIN 81MG TABLET PO ONE (14:45)
[2018-02-14 15:27] LABS: BASOPHILS % 0.7 % (0.0-2.0); EOSINOPHILS % 0.2 % (0.0-5.0); HEMOGLOBIN. 10.7 g/dL (14.0-18.0); LYMPHOCYTES % 14.3 % (20.0-50.0); MEAN CORPUSCULAR HEMOGLOBIN 28.4 pg (28.0-32.0); MEAN CORPUSCULAR VOLUME 89.9 fL (80.0-94.0); MEAN PLATELET VOLUME 7.7 fl (7.4-10.4); MONOCYTES % 11.1 % (2.0-8.0); NEUTROPHILS % 73.7 % (40.0-76.0); PLATELET 297 x1000/uL (130-400); RED BLOOD CELL COUNT 3.78 mill/uL (4.7-6.1); RED CELL DISTRIBUTION WIDTH 18.9 % (11.6-14.6)
[2018-02-14 15:30] LABS: CHLORIDE 106 mEq/L (98-107)
[2018-02-14 15:34] LABS: ETHANOL BLOOD < 10 mg/dL
[2018-02-14] MEDS: NITROGLYCERIN 0.4MG TABLET SL SL PRN ×2 (15:43→16:31)
[2018-02-14] MEDS ORDERED: FUROSEMIDE 20MG/2ML VIAL IVP ONE (17:15)
[2018-02-14] MEDS ORDERED: ACETAMINOPHEN 325MG TABLET PO PRN (19:15)
[2018-02-14] MEDS ORDERED: DEXTROSE 50% WATER 50ML SYRINGE IV PRN (19:15)
[2018-02-14] MEDS ORDERED: ONDANSETRON HCL 4MG/2ML INJ IV PRN (19:15)
[2018-02-14 19:31] LABS: *AMPHETAMINES SCREEN URINE NEGATIVE (NEGATIVE); *BARBITURATES SCREEN URINE NEGATIVE (NEGATIVE); *BENZODIAZEPINES SCREEN URINE NEGATIVE (NEGATIVE); *COCAINE SCREEN URINE NEGATIVE (NEGATIVE); CANNABINOID URINE SCREEN NEGATIVE (NEGATIVE)
[2018-02-14 19:32] LABS: METHADONE URINE SCREEN NEGATIVE (NEGATIVE); OPIATES URINE SCREEN NEGATIVE (NEGATIVE); PHENCYCLIDINE URINE SCREEN NEGATIVE (NEGATIVE)
[2018-02-14] MEDS: BLOOD SUGAR DIAGNOSTIC STRIP TEST SCH (21:32)
[2018-02-14] MEDS: INSULIN LISPRO 100 UNITS/ML SUBCUT SCH (21:33)
[2018-02-14] MEDS: FUROSEMIDE 40MG/4ML VIAL IVP SCH (21:43)
[2018-02-14] MEDS: CARVEDILOL 6.25 MG TABLET PO SCH (21:44)
[2018-02-14] MEDS: HYDROCODONE/ACETAMINOPHEN 5/325MG TABLET PO PRN (21:44)
[2018-02-14] MEDS: BUDESONIDE 0.5MG/2ML NEB HHN SCH (21:48)
[2018-02-14] MEDS: IPRATROPIUM/ALBUTEROL 0.5-3(2.5)MG/3ML NEB HHN PRN (21:48)
[2018-02-14] MEDS: ENOXAPARIN 40MG/0.4ML SYR SUBCUT SCH (21:54)
[2018-02-14 22:00] VITALS: BP 114/74
[2018-02-14] MEDS ORDERED: FURO80TA87 PO (22:20)
[2018-02-15] VITALS: BP 118/76
[2018-02-15] MEDS: HYDROCODONE/ACETAMINOPHEN 5/325MG TABLET PO PRN ×4 (03:29→21:14)
[2018-02-15 04:00] VITALS: BP 97/68
[2018-02-15] MEDS: BLOOD SUGAR DIAGNOSTIC STRIP TEST SCH ×4 (06:03→21:01)
[2018-02-15 08:00] VITALS: BP 98/64
[2018-02-15] MEDS: INSULIN LISPRO 100 UNITS/ML SUBCUT SCH ×4 (08:10→21:00)
[2018-02-15] MEDS: FUROSEMIDE 40MG/4ML VIAL IVP SCH ×2 (08:40→17:38)
[2018-02-15] MEDS: ASPIRIN 81MG TABLET PO SCH (08:45)
[2018-02-15] MEDS: CARVEDILOL 6.25 MG TABLET PO SCH (08:47)
[2018-02-15] MEDS ORDERED: LOSARTAN POTASSIUM 25 MG TABLET PO SCH (09:00)
[2018-02-15] MEDS: BUDESONIDE 0.5MG/2ML NEB HHN SCH ×2 (09:22→20:35)
[2018-02-15] MEDS: IPRATROPIUM/ALBUTEROL 0.5-3(2.5)MG/3ML NEB HHN PRN ×2 (09:22→20:35)
[2018-02-15 09:39] LABS: BASOPHILS % 0.3 % (0.0-2.0); EOSINOPHILS % 0.6 % (0.0-5.0); HEMATOCRIT. 34.2 % (42.0-52.0); HEMOGLOBIN. 10.7 g/dL (14.0-18.0); LYMPHOCYTES % 16.8 % (20.0-50.0); MEAN CORPUSCULAR HEMOGLOBIN 28.4 pg (28.0-32.0); MEAN CORPUSCULAR VOLUME 90.7 fL (80.0-94.0); MEAN PLATELET VOLUME 7.9 fl (7.4-10.4); MONOCYTES % 9.5 % (2.0-8.0); NEUTROPHILS % 72.8 % (40.0-76.0); PLATELET 293 x1000/uL (130-400); RED BLOOD CELL COUNT 3.77 mill/uL (4.7-6.1); RED CELL DISTRIBUTION WIDTH 19.1 % (11.6-14.6)
[2018-02-15 09:57] LABS: CHLORIDE 103 mEq/L (98-107)
[2018-02-15] MEDS: ENOXAPARIN 40MG/0.4ML SYR SUBCUT SCH ×2 (10:09→21:05)
[2018-02-15 12:00] VITALS: BP 95/58
[2018-02-15 20:00] VITALS: BP 92/60
[2018-02-15] MEDS: CARVEDILOL 3.125 MG TABLET PO SCH (20:09)
[2018-02-15] MEDS: ATORVASTATIN CALCIUM 10MG TABLET PO SCH (21:00)
[2018-02-16] VITALS: BP 93/56
[2018-02-16 04:00] VITALS: BP 91/64
[2018-02-16] MEDS: BLOOD SUGAR DIAGNOSTIC STRIP TEST SCH ×4 (06:10→21:41)
[2018-02-16] MEDS: HYDROCODONE/ACETAMINOPHEN 5/325MG TABLET PO PRN ×3 (06:10→21:42)
[2018-02-16 06:20] LABS: BASOPHILS % 0.6 % (0.0-2.0); EOSINOPHILS % 0.5 % (0.0-5.0); HEMATOCRIT. 32.4 % (42.0-52.0); HEMOGLOBIN. 10.4 g/dL (14.0-18.0); LYMPHOCYTES % 15.9 % (20.0-50.0); MEAN CORPUSCULAR HEMOGLOBIN 28.9 pg (28.0-32.0); MEAN CORPUSCULAR VOLUME 90.2 fL (80.0-94.0); MEAN PLATELET VOLUME 8.2 fl (7.4-10.4); MONOCYTES % 9.5 % (2.0-8.0); NEUTROPHILS % 73.5 % (40.0-76.0); PLATELET 284 x1000/uL (130-400); RED BLOOD CELL COUNT 3.59 mill/uL (4.7-6.1); RED CELL DISTRIBUTION WIDTH 18.8 % (11.6-14.6)
[2018-02-16 06:27] LABS: CHLORIDE 100 mEq/L (98-107)
[2018-02-16] MEDS: IPRATROPIUM/ALBUTEROL 0.5-3(2.5)MG/3ML NEB HHN PRN ×4 (07:27→20:55)
[2018-02-16] MEDS: BUDESONIDE 0.5MG/2ML NEB HHN SCH ×2 (07:27→20:55)
[2018-02-16 08:00] VITALS: BP 102/66
[2018-02-16] MEDS: INSULIN LISPRO 100 UNITS/ML SUBCUT SCH ×4 (08:15→21:00)
[2018-02-16] MEDS: ASPIRIN 81MG TABLET PO SCH (09:50)
[2018-02-16] MEDS: ENOXAPARIN 40MG/0.4ML SYR SUBCUT SCH ×2 (09:51→21:41)
[2018-02-16] MEDS: CARVEDILOL 3.125 MG TABLET PO SCH ×2 (09:51→21:40)
[2018-02-16] MEDS: FUROSEMIDE 40MG/4ML VIAL IVP SCH ×2 (10:24→19:04)
[2018-02-16 12:00] VITALS: BP 110/74
[2018-02-16 16:00] VITALS: BP 109/71
[2018-02-16 20:00] VITALS: BP 120/66
[2018-02-16] MEDS: ATORVASTATIN CALCIUM 10MG TABLET PO SCH (21:40)
[2018-02-17] VITALS: BP 108/56
[2018-02-17 04:00] VITALS: BP 106/74
[2018-02-17] MEDS: BLOOD SUGAR DIAGNOSTIC STRIP TEST SCH ×4 (06:01→21:58)
[2018-02-17] MEDS: INSULIN LISPRO 100 UNITS/ML SUBCUT SCH ×4 (07:56→21:00)
[2018-02-17 08:00] VITALS: BP 97/70
[2018-02-17 08:11] LABS: BASOPHILS % 0.7 % (0.0-2.0); EOSINOPHILS % 0.6 % (0.0-5.0); HEMATOCRIT. 31.8 % (42.0-52.0); HEMOGLOBIN. 10.2 g/dL (14.0-18.0); LYMPHOCYTES % 14.6 % (20.0-50.0); MEAN CORPUSCULAR HEMOGLOBIN 28.6 pg (28.0-32.0); MEAN CORPUSCULAR VOLUME 89.1 fL (80.0-94.0); NEUTROPHILS % 75.1 % (40.0-76.0); PLATELET 282 x1000/uL (130-400); RED BLOOD CELL COUNT 3.57 mill/uL (4.7-6.1); RED CELL DISTRIBUTION WIDTH 18.6 % (11.6-14.6)
[2018-02-17] MEDS: HYDROCODONE/ACETAMINOPHEN 5/325MG TABLET PO PRN ×2 (08:16→17:40)
[2018-02-17] MEDS: FUROSEMIDE 40MG/4ML VIAL IVP SCH (08:29)
[2018-02-17] MEDS: ASPIRIN 81MG TABLET PO SCH (08:30)
[2018-02-17] MEDS: CARVEDILOL 3.125 MG TABLET PO SCH ×2 (08:30→21:00)
[2018-02-17] MEDS: BUDESONIDE 0.5MG/2ML NEB HHN SCH ×2 (08:32→21:09)
[2018-02-17] MEDS: IPRATROPIUM/ALBUTEROL 0.5-3(2.5)MG/3ML NEB HHN PRN (08:33)
[2018-02-17 09:13] LABS: CHLORIDE 102 mEq/L (98-107)
[2018-02-17 09:21] LABS: PHOSPHORUS 3.9 mg/dL (2.5-4.9)
[2018-02-17] MEDS: ENOXAPARIN 40MG/0.4ML SYR SUBCUT SCH ×2 (09:29→23:45)
[2018-02-17 12:00] VITALS: BP 117/74
[2018-02-17] MEDS: POTASSIUM CHLORIDE 20MEQ TABLET SR PO SCH (14:21)
[2018-02-17 16:00] VITALS: BP 101/59
[2018-02-17] MEDS: FUROSEMIDE 100MG/10ML VIAL IVP SCH (17:39)
[2018-02-17 20:00] VITALS: BP 105/70
[2018-02-17] MEDS: ATORVASTATIN CALCIUM 10MG TABLET PO SCH (23:46)
[2018-02-18] VITALS: BP 131/80
[2018-02-18 04:00] VITALS: BP 128/76
[2018-02-18] MEDS: IPRATROPIUM/ALBUTEROL 0.5-3(2.5)MG/3ML NEB HHN PRN (04:20)
[2018-02-18] MEDS: BLOOD SUGAR DIAGNOSTIC STRIP TEST SCH ×4 (06:37→20:20)
[2018-02-18] MEDS: FUROSEMIDE 100MG/10ML VIAL IVP SCH ×2 (06:38→18:57)
[2018-02-18 07:26] LABS: BASOPHILS % 0.2 % (0.0-2.0); EOSINOPHILS % 0.4 % (0.0-5.0); LYMPHOCYTES % 14.2 % (20.0-50.0); MEAN CORPUSCULAR VOLUME 89.6 fL (80.0-94.0); MEAN PLATELET VOLUME 8.1 fl (7.4-10.4); MONOCYTES % 9.2 % (2.0-8.0); PLATELET 262 x1000/uL (130-400); RED BLOOD CELL COUNT 3.46 mill/uL (4.7-6.1); RED CELL DISTRIBUTION WIDTH 18.7 % (11.6-14.6)
[2018-02-18 07:30] LABS: CHLORIDE 102 mEq/L (98-107)
[2018-02-18 08:00] VITALS: BP_SYST 134; BP_SYST 139; BP_DIAS 79; BP_DIAS 83
[2018-02-18] MEDS: INSULIN LISPRO 100 UNITS/ML SUBCUT SCH ×4 (08:10→20:20)
[2018-02-18] MEDS: ASPIRIN 81MG TABLET PO SCH (09:09)
[2018-02-18] MEDS: POTASSIUM CHLORIDE 20MEQ TABLET SR PO SCH (09:09)
[2018-02-18] MEDS: CARVEDILOL 3.125 MG TABLET PO SCH ×2 (09:10→20:18)
[2018-02-18 12:00] VITALS: BP_SYST 119; BP_SYST 122; BP_DIAS 68; BP_DIAS 73
[2018-02-18] MEDS: HYDROCODONE/ACETAMINOPHEN 5/325MG TABLET PO PRN ×2 (12:22→20:19)
[2018-02-18] MEDS: ENOXAPARIN 40MG/0.4ML SYR SUBCUT SCH ×2 (12:25→20:18)
[2018-02-18 16:00] VITALS: BP 113/76
[2018-02-18 20:00] VITALS: BP 124/83
[2018-02-18] MEDS: ATORVASTATIN CALCIUM 10MG TABLET PO SCH (20:24)
[2018-02-19] VITALS: BP 120/74
[2018-02-19 04:00] VITALS: BP 111/78
[2018-02-19] MEDS: FUROSEMIDE 100MG/10ML VIAL IVP SCH (06:04)
[2018-02-19] MEDS: BLOOD SUGAR DIAGNOSTIC STRIP TEST SCH ×2 (06:14→13:06)
[2018-02-19 07:27] LABS: BASOPHILS % 0.4 % (0.0-2.0); EOSINOPHILS % 0.5 % (0.0-5.0); HEMATOCRIT. 32.2 % (42.0-52.0); MEAN CORPUSCULAR HEMOGLOBIN 28.2 pg (28.0-32.0); MEAN CORPUSCULAR VOLUME 90.5 fL (80.0-94.0); MEAN PLATELET VOLUME 8.5 fl (7.4-10.4); MONOCYTES % 11.6 % (2.0-8.0); NEUTROPHILS % 72.5 % (40.0-76.0); PLATELET 248 x1000/uL (130-400); RED BLOOD CELL COUNT 3.56 mill/uL (4.7-6.1); RED CELL DISTRIBUTION WIDTH 19.2 % (11.6-14.6)
[2018-02-19 08:00] VITALS: BP 113/75
[2018-02-19] MEDS: INSULIN LISPRO 100 UNITS/ML SUBCUT SCH ×2 (08:10→13:06)
[2018-02-19 08:18] LABS: CHLORIDE 102 mEq/L (98-107)
[2018-02-19] MEDS: ENOXAPARIN 40MG/0.4ML SYR SUBCUT SCH (09:26)
[2018-02-19] MEDS: ASPIRIN 81MG TABLET PO SCH (09:26)
[2018-02-19] MEDS: POTASSIUM CHLORIDE 20MEQ TABLET SR PO SCH (09:26)
[2018-02-19] MEDS: CARVEDILOL 3.125 MG TABLET PO SCH (09:31)
[2018-02-19] MEDS: HYDROCODONE/ACETAMINOPHEN 5/325MG TABLET PO PRN (09:39)
[2018-02-19 12:00] VITALS: BP 97/63
[2018-02-19 14:14] VITALS: BP 97/63
== END 2018-02-19 16:04 | disposition home or self-care (01) | DRG 133 ==
LOC: ER 13:58 → 7WST 18:02 → EDBEDREQTM 18:06 → EDBEDREQ 18:06 → ENRESERV 19:05
PROVIDERS: ADMIT Internal Medicine; ATTEND Internal Medicine
DX: J96.20 Acute and chronic respiratory failure, unspecified whether with hypoxia or hypercapnia (principal); I50.23 Acute on chronic systolic (congestive) heart failure; I42.9 Cardiomyopathy, unspecified; E44.0 Moderate protein-calorie malnutrition; J44.9 Chronic obstructive pulmonary disease, unspecified; Z68.43 Body mass index [BMI] 50.0-59.9, adult; E83.51 Hypocalcemia; D64.9 Anemia, unspecified; E11.9 Type 2 diabetes mellitus without complications; E66.09 Other obesity due to excess calories; I11.0 Hypertensive heart disease with heart failure; E78.5 Hyperlipidemia, unspecified; G47.33 Obstructive sleep apnea (adult) (pediatric); Z79.82 Long term (current) use of aspirin; Z79.899 Other long term (current) drug therapy; Z88.8 Allergy status to other drugs, medicaments and biological substances
CPT/HCPCS: 36415; 71045; 80048; 80305; 82962; 83735; 83880; 84100; 84484; 93005; 94003; 94640; 96374; 99285; G0482; J1650; J1815; J1940; J7620; J7626

== ENCOUNTER 2018-03-01 08:06 | Inpatient (IN) | payer MEDICAID ==
[~2018-03-01] VITALS: Ht 165.1 cm; Wt 153.3 kg
[~2018-03-01 08:06] MED LIST changes: -FURO-151 MT
[2018-03-01] MEDS ORDERED: FUROSEMIDE 40MG/4ML VIAL IVP ONE (09:30)
[2018-03-01 09:36] LABS: BASOPHILS % 1.2 % (0.0-2.0); EOSINOPHILS % 0.4 % (0.0-5.0); HEMATOCRIT. 33.1 % (42.0-52.0); HEMOGLOBIN. 10.2 g/dL (14.0-18.0); LYMPHOCYTES % 14.3 % (20.0-50.0); MEAN CORPUSCULAR HEMOGLOBIN 27.9 pg (28.0-32.0); MEAN PLATELET VOLUME 8.4 fl (7.4-10.4); MONOCYTES % 9.8 % (2.0-8.0); NEUTROPHILS % 74.3 % (40.0-76.0); PLATELET 313 x1000/uL (130-400); RED BLOOD CELL COUNT 3.67 mill/uL (4.7-6.1)
[2018-03-01 09:40] LABS: CHLORIDE 102 mEq/L (98-107)
[2018-03-01] MEDS ORDERED: IPRATROPIUM/ALBUTEROL 0.5-3(2.5)MG/3ML NEB INH PRN (13:15)
[2018-03-01] MEDS ORDERED: ACETAMINOPHEN 325MG TABLET PO PRN (13:15)
[2018-03-01] MEDS ORDERED: ONDANSETRON HCL 4MG/2ML INJ IV PRN (13:15)
[2018-03-01] MEDS ORDERED: CLONIDINE 0.1MG TABLET PO PRN (13:15)
[2018-03-01] MEDS ORDERED: BENZONATATE 100MG CAPSULE PO PRN (13:15)
[2018-03-01] MEDS ORDERED: DOCUSATE SODIUM 100MG CAPSULE PO PRN (13:15)
[2018-03-01 13:32] LABS: PHOSPHORUS 3.7 mg/dL (2.5-4.9)
[2018-03-01] MEDS: HYDROCODONE/ACETAMINOPHEN 5/325MG TABLET PO PRN ×2 (14:53→22:08)
[2018-03-01] MEDS ORDERED: FUROSEMIDE 40MG/4ML VIAL IV SCH (15:30)
[2018-03-01 16:00] VITALS: BP 148/69
[2018-03-01 16:20] VITALS: BP 148/69
[2018-03-01] MEDS: MONTELUKAST SODIUM 10MG TABLET PO SCH (17:37)
[2018-03-01] MEDS ORDERED: LEVOFLOXACIN 750MG PREMIX 150 ML IV NR (18:00)
[2018-03-01] MEDS ORDERED: INFLUENZA VIRUS VACCINE(AFLURIA) 0.5ML SYR IM ONE (18:15)
[2018-03-01] MEDS ORDERED: PNEUMOCOCCAL 23-VAL P-SAC VAC 0.5 ML IM ONE (18:15)
[2018-03-01 20:00] VITALS: BP 110/67
[2018-03-01] MEDS: ATORVASTATIN CALCIUM 10MG TABLET PO SCH (22:08)
[2018-03-02] VITALS: BP 98/52
[2018-03-02] MEDS ORDERED: FUROSEMIDE 100MG/10ML VIAL IV SCH (03:30)
[2018-03-02 04:00] VITALS: BP 114/78
[2018-03-02] MEDS: HYDROCODONE/ACETAMINOPHEN 5/325MG TABLET PO PRN ×2 (05:23→17:13)
[2018-03-02] MEDS: FUROSEMIDE 100MG/10ML VIAL IV SCH ×2 (05:57→18:05)
[2018-03-02 07:13] LABS: BASOPHILS % 0.5 % (0.0-2.0); EOSINOPHILS % 0.9 % (0.0-5.0); HEMATOCRIT. 33.7 % (42.0-52.0); HEMOGLOBIN. 10.3 g/dL (14.0-18.0); LYMPHOCYTES % 22.3 % (20.0-50.0); MEAN CORPUSCULAR HEMOGLOBIN 27.8 pg (28.0-32.0); MEAN CORPUSCULAR VOLUME 90.9 fL (80.0-94.0); MEAN PLATELET VOLUME 8.4 fl (7.4-10.4); MONOCYTES % 11.2 % (2.0-8.0); NEUTROPHILS % 65.1 % (40.0-76.0); PLATELET 340 x1000/uL (130-400); RED CELL DISTRIBUTION WIDTH 19.1 % (11.6-14.6)
[2018-03-02 07:24] LABS: CHLORIDE 101 mEq/L (98-107)
[2018-03-02 07:35] VITALS: BP 96/62
[2018-03-02] MEDS: ASPIRIN 81MG EC TABLET PO SCH (08:00)
[2018-03-02] MEDS: POTASSIUM CHLORIDE 20MEQ TABLET SR PO SCH (09:31)
[2018-03-02 11:53] VITALS: BP 84/53
[2018-03-02 16:00] VITALS: BP 94/60
[2018-03-02] MEDS: MONTELUKAST SODIUM 10MG TABLET PO SCH (17:07)
[2018-03-02 20:00] VITALS: BP 99/66
[2018-03-02] MEDS: ENOXAPARIN 40MG/0.4ML SYR SUBCUT SCH (21:07)
[2018-03-02] MEDS: ATORVASTATIN CALCIUM 10MG TABLET PO SCH (21:08)
[2018-03-03] VITALS: BP 96/68
[2018-03-03] MEDS: HYDROCODONE/ACETAMINOPHEN 5/325MG TABLET PO PRN (03:58)
[2018-03-03 04:00] VITALS: BP 92/65
[2018-03-03] MEDS: FUROSEMIDE 100MG/10ML VIAL IV SCH (05:56)
[2018-03-03] MEDS: ASPIRIN 81MG EC TABLET PO SCH (08:50)
[2018-03-03] MEDS: POTASSIUM CHLORIDE 20MEQ TABLET SR PO SCH (08:50)
[2018-03-03] MEDS ORDERED: FUROSEMIDE 40MG TABLET PO SCH (09:00)
[2018-03-03] MEDS: ENOXAPARIN 40MG/0.4ML SYR SUBCUT SCH (10:07)
[2018-03-03 11:32] LABS: BASOPHILS % 0.3 % (0.0-2.0); EOSINOPHILS % 0.8 % (0.0-5.0); HEMATOCRIT. 34.6 % (42.0-52.0); HEMOGLOBIN. 10.7 g/dL (14.0-18.0); LYMPHOCYTES % 12.4 % (20.0-50.0); MEAN CORPUSCULAR VOLUME 90.4 fL (80.0-94.0); MEAN PLATELET VOLUME 7.9 fl (7.4-10.4); NEUTROPHILS % 76.5 % (40.0-76.0); PLATELET 309 x1000/uL (130-400); RED BLOOD CELL COUNT 3.83 mill/uL (4.7-6.1); RED CELL DISTRIBUTION WIDTH 19.2 % (11.6-14.6)
[2018-03-03 11:56] LABS: CHLORIDE 99 mEq/L (98-107)
[2018-03-03 12:00] VITALS: BP 97/57
== END 2018-03-03 17:00 | disposition home or self-care (01) | DRG 194 ==
LOC: ER 08:06 → 7WST 11:36 → ENRESERV 14:39 → 7WST 03-02 10:55
PROVIDERS: ADMIT Internal Medicine; ATTEND Internal Medicine
DX: I11.0 Hypertensive heart disease with heart failure (principal); Z99.81 Dependence on supplemental oxygen; E44.0 Moderate protein-calorie malnutrition; I42.0 Dilated cardiomyopathy; Z68.43 Body mass index [BMI] 50.0-59.9, adult; I50.23 Acute on chronic systolic (congestive) heart failure; D64.9 Anemia, unspecified; E78.5 Hyperlipidemia, unspecified; G47.33 Obstructive sleep apnea (adult) (pediatric); J44.9 Chronic obstructive pulmonary disease, unspecified; L73.2 Hidradenitis suppurativa; R73.03 Prediabetes; Z91.19 Patient's noncompliance with other medical treatment and regimen; Z88.6 Allergy status to analgesic agent; Z79.899 Other long term (current) drug therapy; Z71.3 Dietary counseling and surveillance
CPT/HCPCS: 36415; 71045; 80048; 83735; 83880; 84100; 84484; 93005; 94640; 96374; 97162; 99285; A6261; J1650; J1940; J1956; J7050; J7620

== ENCOUNTER 2018-03-06 15:25 | Inpatient (IN) | payer MEDICAID ==
[~2018-03-06] VITALS: Ht 165.1 cm; Wt 156.5 kg
[~2018-03-06 15:25] MED LIST changes: -DOXY150T MT; -LISI10TA5 PO
[2018-03-06 16:36] LABS: BASOPHILS % 0.5 % (0.0-2.0); EOSINOPHILS % 0.4 % (0.0-5.0); HEMATOCRIT. 33.4 % (42.0-52.0); HEMOGLOBIN. 10.5 g/dL (14.0-18.0); LYMPHOCYTES % 15.4 % (20.0-50.0); MEAN CORPUSCULAR VOLUME 89.2 fL (80.0-94.0); MEAN PLATELET VOLUME 7.6 fl (7.4-10.4); MONOCYTES % 12.4 % (2.0-8.0); NEUTROPHILS % 71.3 % (40.0-76.0); PLATELET 313 x1000/uL (130-400); RED BLOOD CELL COUNT 3.75 mill/uL (4.7-6.1)
[2018-03-06 16:42] LABS: CHLORIDE 104 mEq/L (98-107)
[2018-03-06 16:45] LABS: INR 1.1; PARTIAL THROMBOPLASTIN TIME 27.7 sec (23.4-31.0); PROTHROMBIN TIME 11.1 sec (9.1-11.1)
[2018-03-06] MEDS ORDERED: METHYLPREDNISOLONE SOD SUCC 125 MG/2 ML VIAL IV STA (17:00)
[2018-03-06] MEDS ORDERED: ALBUTEROL (0.083%) 2.5MG/3ML NEB HHN STA (17:00)
[2018-03-06] MEDS ORDERED: FUROSEMIDE 40MG/4ML VIAL IVP ONE (17:00)
[2018-03-06] MEDS ORDERED: VANCOMYCIN 1 G PREMIX 200 ML IV ONE (17:15)
[2018-03-06] MEDS ORDERED: PIPERACILLIN/TAZ 3.375G PREMIX 50 ML IV ONE (17:15)
[2018-03-06 17:57] LABS: CLARITY URINE CLEAR (CLEAR); COLOR URINE DARK YELLOW (YELLOW); KETONES URINE TRACE (NEGATIVE); LEUKOCYTE ESTERASE URINE NEGATIVE (NEGATIVE); NITRITE URINE NEGATIVE (NEGATIVE); OCCULT BLOOD URINE NEGATIVE (NEGATIVE); PH URINE 5.5 (4.5-8.0); PROTEIN URINE TRACE (NEGATIVE); SPECIFIC GRAVITY URINE 1.023 (1.005-1.030)
[2018-03-06] MEDS ORDERED: ONDANSETRON HCL 4MG/2ML INJ IV PRN (19:15)
[2018-03-06] MEDS ORDERED: ACETAMINOPHEN 325MG TABLET PO PRN (19:15)
[2018-03-06 20:00] VITALS: BP 113/49
[2018-03-06] MEDS ORDERED: FUROSEMIDE 40MG/4ML VIAL IVP NR (21:50)
[2018-03-06] MEDS ORDERED: DEXTROSE 50% WATER 50ML SYRINGE IV PRN (22:00)
[2018-03-06] MEDS: BLOOD SUGAR DIAGNOSTIC STRIP TEST SCH (22:21)
[2018-03-06] MEDS: INSULIN LISPRO 100 UNITS/ML SUBCUT SCH (22:23)
[2018-03-06 22:30] VITALS: BP 146/86
[2018-03-06] MEDS ORDERED: BISA-81 PO (22:55)
[2018-03-06] MEDS ORDERED: FURO80TA87 PO (22:55)
[2018-03-07] VITALS: BP 146/102
[2018-03-07] MEDS: BUDESONIDE 0.5MG/2ML NEB HHN SCH ×3 (00:23→21:38)
[2018-03-07 04:00] VITALS: BP 133/89
[2018-03-07] MEDS: BLOOD SUGAR DIAGNOSTIC STRIP TEST SCH ×4 (06:06→20:31)
[2018-03-07] MEDS: INSULIN LISPRO 100 UNITS/ML SUBCUT SCH ×4 (06:09→20:32)
[2018-03-07 07:21] LABS: BASOPHILS % 0.2 % (0.0-2.0); HEMATOCRIT. 32.4 % (42.0-52.0); LYMPHOCYTES % 8.1 % (20.0-50.0); MEAN CORPUSCULAR HEMOGLOBIN 27.7 pg (28.0-32.0); MEAN CORPUSCULAR VOLUME 90.2 fL (80.0-94.0); MEAN PLATELET VOLUME 8.2 fl (7.4-10.4); NEUTROPHILS % 88.7 % (40.0-76.0); PLATELET 309 x1000/uL (130-400)
[2018-03-07 07:33] LABS: CHLORIDE 104 mEq/L (98-107)
[2018-03-07 08:00] VITALS: BP 91/52
[2018-03-07] MEDS: IPRATROPIUM/ALBUTEROL 0.5-3(2.5)MG/3ML NEB HHN PRN (08:11)
[2018-03-07] MEDS ORDERED: ENOXAPARIN 40MG/0.4ML SYR SUBCUT SCH (09:00)
[2018-03-07] MEDS: FUROSEMIDE 100MG/10ML VIAL IVP SCH ×2 (10:04→18:00)
[2018-03-07] MEDS: ENOXAPARIN 40MG/0.4ML SYR SUBCUT SCH ×2 (10:06→20:41)
[2018-03-07 12:04] VITALS: BP 116/66
[2018-03-07] MEDS: SPIRONOLACTONE 50MG TABLET PO SCH (12:08)
[2018-03-07] MEDS: CARVEDILOL 6.25 MG TABLET PO SCH ×2 (12:16→20:41)
[2018-03-07] MEDS: ASPIRIN 81MG EC TABLET PO SCH (12:16)
[2018-03-07 16:00] VITALS: BP_SYST 99
[2018-03-07 16:59] LABS: *AMPHETAMINES SCREEN URINE NEGATIVE (NEGATIVE); *BARBITURATES SCREEN URINE NEGATIVE (NEGATIVE); *BENZODIAZEPINES SCREEN URINE NEGATIVE (NEGATIVE); *COCAINE SCREEN URINE NEGATIVE (NEGATIVE)
[2018-03-07 17:00] LABS: CANNABINOID URINE SCREEN NEGATIVE (NEGATIVE); METHADONE URINE SCREEN NEGATIVE (NEGATIVE); OPIATES URINE SCREEN NEGATIVE (NEGATIVE); PHENCYCLIDINE URINE SCREEN NEGATIVE (NEGATIVE)
[2018-03-07] MEDS: MONTELUKAST SODIUM 10MG TABLET PO SCH (18:00)
[2018-03-07] MEDS: HYDROCODONE/ACETAMINOPHEN 5/325MG TABLET PO PRN (18:39)
[2018-03-07 20:00] VITALS: BP 122/64
[2018-03-08] VITALS: BP 126/79
[2018-03-08 04:00] VITALS: BP 125/92
[2018-03-08] MEDS: BLOOD SUGAR DIAGNOSTIC STRIP TEST SCH ×4 (06:28→21:12)
[2018-03-08] MEDS: INSULIN LISPRO 100 UNITS/ML SUBCUT SCH ×4 (06:29→21:17)
[2018-03-08 07:18] LABS: CHLORIDE 104 mEq/L (98-107)
[2018-03-08 07:41] LABS: BASOPHILS % 0.3 % (0.0-2.0); EOSINOPHILS % 0.1 % (0.0-5.0); HEMATOCRIT. 33.6 % (42.0-52.0); HEMOGLOBIN. 10.1 g/dL (14.0-18.0); LYMPHOCYTES % 8.7 % (20.0-50.0); MEAN CORPUSCULAR HEMOGLOBIN 27.5 pg (28.0-32.0); MEAN CORPUSCULAR VOLUME 91.5 fL (80.0-94.0); MEAN PLATELET VOLUME 8.4 fl (7.4-10.4); MONOCYTES % 7.9 % (2.0-8.0); PLATELET 313 x1000/uL (130-400); RED BLOOD CELL COUNT 3.67 mill/uL (4.7-6.1); RED CELL DISTRIBUTION WIDTH 19.2 % (11.6-14.6)
[2018-03-08 08:00] VITALS: BP 115/81
[2018-03-08] MEDS: ASPIRIN 81MG EC TABLET PO SCH (08:49)
[2018-03-08] MEDS: SPIRONOLACTONE 50MG TABLET PO SCH (08:49)
[2018-03-08] MEDS: CARVEDILOL 6.25 MG TABLET PO SCH ×2 (08:49→21:09)
[2018-03-08] MEDS: ENOXAPARIN 40MG/0.4ML SYR SUBCUT SCH ×2 (08:50→21:08)
[2018-03-08] MEDS: FUROSEMIDE 100MG/10ML VIAL IVP SCH ×2 (08:51→16:28)
[2018-03-08] MEDS: BUDESONIDE 0.5MG/2ML NEB HHN SCH ×2 (09:28→21:25)
[2018-03-08] MEDS: IPRATROPIUM/ALBUTEROL 0.5-3(2.5)MG/3ML NEB HHN PRN ×3 (09:28→21:25)
[2018-03-08 12:00] VITALS: BP 104/65
[2018-03-08 16:00] VITALS: BP 102/69
[2018-03-08] MEDS: MONTELUKAST SODIUM 10MG TABLET PO SCH (16:27)
[2018-03-08 20:00] VITALS: BP 115/60
[2018-03-08] MEDS: HYDROCODONE/ACETAMINOPHEN 5/325MG TABLET PO PRN (21:10)
[2018-03-09] VITALS (7 sets, daily range): BP systolic 90–133; BP diastolic 54–84
[2018-03-09] MEDS: INSULIN LISPRO 100 UNITS/ML SUBCUT SCH ×4 (06:22→21:00)
[2018-03-09] MEDS: BLOOD SUGAR DIAGNOSTIC STRIP TEST SCH ×4 (06:22→21:40)
[2018-03-09 07:01] LABS: BASOPHILS % 0.5 % (0.0-2.0); EOSINOPHILS % 0.2 % (0.0-5.0); HEMOGLOBIN. 10.3 g/dL (14.0-18.0); MEAN CORPUSCULAR HEMOGLOBIN 28.1 pg (28.0-32.0); MEAN CORPUSCULAR VOLUME 89.9 fL (80.0-94.0); MEAN PLATELET VOLUME 8.2 fl (7.4-10.4); MONOCYTES % 12.5 % (2.0-8.0); NEUTROPHILS % 69.8 % (40.0-76.0); PLATELET 326 x1000/uL (130-400); RED BLOOD CELL COUNT 3.67 mill/uL (4.7-6.1)
[2018-03-09] MEDS: BUDESONIDE 0.5MG/2ML NEB HHN SCH ×2 (07:43→20:22)
[2018-03-09] MEDS: IPRATROPIUM/ALBUTEROL 0.5-3(2.5)MG/3ML NEB HHN PRN ×2 (07:44→20:22)
[2018-03-09 08:02] LABS: CHLORIDE 101 mEq/L (98-107)
[2018-03-09] MEDS: CARVEDILOL 6.25 MG TABLET PO SCH ×2 (09:00→21:00)
[2018-03-09] MEDS: FUROSEMIDE 100MG/10ML VIAL IVP SCH ×2 (09:00→17:00)
[2018-03-09] MEDS: SPIRONOLACTONE 50MG TABLET PO SCH (09:00)
[2018-03-09] MEDS: ENOXAPARIN 40MG/0.4ML SYR SUBCUT SCH ×2 (09:10→21:40)
[2018-03-09] MEDS: ASPIRIN 81MG EC TABLET PO SCH (09:11)
[2018-03-09] MEDS: MONTELUKAST SODIUM 10MG TABLET PO SCH (17:35)
[2018-03-10] VITALS: BP 106/69
[2018-03-10] MEDS: GUAIFENESIN-DM 200MG-20MG/10ML UDC PO PRN ×3 (03:15→20:50)
[2018-03-10] MEDS: HYDROCODONE/ACETAMINOPHEN 5/325MG TABLET PO PRN ×3 (03:16→17:55)
[2018-03-10] MEDS: IPRATROPIUM/ALBUTEROL 0.5-3(2.5)MG/3ML NEB HHN PRN ×5 (03:38→21:08)
[2018-03-10 04:00] VITALS: BP 113/75
[2018-03-10] MEDS: BLOOD SUGAR DIAGNOSTIC STRIP TEST SCH ×4 (07:07→20:50)
[2018-03-10] MEDS: INSULIN LISPRO 100 UNITS/ML SUBCUT SCH ×4 (07:07→20:50)
[2018-03-10 07:33] LABS: CHLORIDE 101 mEq/L (98-107)
[2018-03-10 07:37] LABS: BASOPHILS % 0.2 % (0.0-2.0); EOSINOPHILS % 0.3 % (0.0-5.0); HEMATOCRIT. 32.2 % (42.0-52.0); LYMPHOCYTES % 18.3 % (20.0-50.0); MEAN CORPUSCULAR HEMOGLOBIN 27.9 pg (28.0-32.0); MEAN CORPUSCULAR VOLUME 89.7 fL (80.0-94.0); MEAN PLATELET VOLUME 8.3 fl (7.4-10.4); MONOCYTES % 11.1 % (2.0-8.0); NEUTROPHILS % 70.1 % (40.0-76.0); PLATELET 324 x1000/uL (130-400); RED BLOOD CELL COUNT 3.59 mill/uL (4.7-6.1); RED CELL DISTRIBUTION WIDTH 18.6 % (11.6-14.6)
[2018-03-10 08:00] VITALS: BP 131/93
[2018-03-10] MEDS: FUROSEMIDE 100MG/10ML VIAL IVP SCH ×2 (08:37→17:00)
[2018-03-10] MEDS: ASPIRIN 81MG EC TABLET PO SCH (08:37)
[2018-03-10] MEDS: SPIRONOLACTONE 50MG TABLET PO SCH (08:37)
[2018-03-10] MEDS: CARVEDILOL 6.25 MG TABLET PO SCH ×2 (08:37→20:50)
[2018-03-10] MEDS: ENOXAPARIN 40MG/0.4ML SYR SUBCUT SCH ×2 (08:39→20:50)
[2018-03-10 12:00] VITALS: BP_SYST 122; BP_DIAS 60; BP_DIAS 61
[2018-03-10 16:00] VITALS: BP 105/69
[2018-03-10] MEDS ORDERED: METOLAZONE 2.5MG TABLET PO NR (16:00)
[2018-03-10] MEDS: LOSARTAN POTASSIUM 25 MG TABLET PO SCH (17:00)
[2018-03-10] MEDS: MONTELUKAST SODIUM 10MG TABLET PO SCH (17:56)
[2018-03-10 20:00] VITALS: BP 107/80
[2018-03-11] MEDS: IPRATROPIUM/ALBUTEROL 0.5-3(2.5)MG/3ML NEB HHN PRN ×2 (00:26→05:05)
[2018-03-11 01:00] VITALS: BP 106/73
[2018-03-11] MEDS: GUAIFENESIN-DM 200MG-20MG/10ML UDC PO PRN ×2 (01:30→20:46)
[2018-03-11] MEDS: HYDROCODONE/ACETAMINOPHEN 5/325MG TABLET PO PRN ×4 (01:32→20:47)
[2018-03-11 05:00] VITALS: BP 125/90
[2018-03-11] MEDS: BLOOD SUGAR DIAGNOSTIC STRIP TEST SCH ×4 (07:03→20:48)
[2018-03-11] MEDS: INSULIN LISPRO 100 UNITS/ML SUBCUT SCH ×4 (07:03→20:48)
[2018-03-11 08:00] VITALS: BP 101/72
[2018-03-11 08:30] LABS: BASOPHILS % 1.2 % (0.0-2.0); EOSINOPHILS % 0.5 % (0.0-5.0); HEMATOCRIT. 34.4 % (42.0-52.0); HEMOGLOBIN. 10.7 g/dL (14.0-18.0); MEAN CORPUSCULAR HEMOGLOBIN 27.8 pg (28.0-32.0); MEAN CORPUSCULAR VOLUME 89.7 fL (80.0-94.0); MEAN PLATELET VOLUME 8.1 fl (7.4-10.4); MONOCYTES % 7.8 % (2.0-8.0); NEUTROPHILS % 69.5 % (40.0-76.0); PLATELET 318 x1000/uL (130-400); RED BLOOD CELL COUNT 3.84 mill/uL (4.7-6.1); RED CELL DISTRIBUTION WIDTH 19.2 % (11.6-14.6)
[2018-03-11] MEDS: ENOXAPARIN 40MG/0.4ML SYR SUBCUT SCH ×2 (08:33→20:48)
[2018-03-11] MEDS: ASPIRIN 81MG EC TABLET PO SCH (08:34)
[2018-03-11] MEDS: SPIRONOLACTONE 50MG TABLET PO SCH (08:34)
[2018-03-11] MEDS: FUROSEMIDE 100MG/10ML VIAL IVP SCH ×2 (08:34→17:55)
[2018-03-11] MEDS: CARVEDILOL 6.25 MG TABLET PO SCH ×2 (08:34→20:46)
[2018-03-11] MEDS: LOSARTAN POTASSIUM 25 MG TABLET PO SCH (08:35)
[2018-03-11 09:08] LABS: CHLORIDE 98 mEq/L (98-107)
[2018-03-11 12:00] VITALS: BP 125/86
[2018-03-11 16:00] VITALS: BP 110/73
[2018-03-11] MEDS: MONTELUKAST SODIUM 10MG TABLET PO SCH (17:55)
[2018-03-11] MEDS: ENTRESTO PO SCH (17:56)
[2018-03-11 20:00] VITALS: BP 124/86
[2018-03-12] VITALS: BP 101/68
[2018-03-12 04:00] VITALS: BP 113/71
[2018-03-12] MEDS: GUAIFENESIN-DM 200MG-20MG/10ML UDC PO PRN ×2 (05:51→17:39)
[2018-03-12] MEDS: BLOOD SUGAR DIAGNOSTIC STRIP TEST SCH ×4 (05:52→20:48)
[2018-03-12] MEDS: INSULIN LISPRO 100 UNITS/ML SUBCUT SCH ×4 (05:52→20:49)
[2018-03-12] MEDS: HYDROCODONE/ACETAMINOPHEN 5/325MG TABLET PO PRN ×2 (05:52→23:59)
[2018-03-12 07:52] LABS: BASOPHILS % 0.7 % (0.0-2.0); EOSINOPHILS % 0.5 % (0.0-5.0); HEMATOCRIT. 36.8 % (42.0-52.0); HEMOGLOBIN. 11.7 g/dL (14.0-18.0); LYMPHOCYTES % 17.9 % (20.0-50.0); MEAN CORPUSCULAR HEMOGLOBIN 27.9 pg (28.0-32.0); MEAN CORPUSCULAR VOLUME 87.9 fL (80.0-94.0); MEAN PLATELET VOLUME 8.3 fl (7.4-10.4); MONOCYTES % 10.4 % (2.0-8.0); NEUTROPHILS % 70.5 % (40.0-76.0); PLATELET 372 x1000/uL (130-400); RED BLOOD CELL COUNT 4.19 mill/uL (4.7-6.1); RED CELL DISTRIBUTION WIDTH 19.1 % (11.6-14.6)
[2018-03-12 08:00] VITALS: BP 96/63
[2018-03-12 08:19] LABS: CHLORIDE 92 mEq/L (98-107)
[2018-03-12] MEDS: ASPIRIN 81MG EC TABLET PO SCH (08:21)
[2018-03-12] MEDS: ENOXAPARIN 40MG/0.4ML SYR SUBCUT SCH ×2 (08:21→20:47)
[2018-03-12] MEDS: CARVEDILOL 6.25 MG TABLET PO SCH (09:00)
[2018-03-12] MEDS: ENTRESTO PO SCH ×2 (09:00→20:47)
[2018-03-12] MEDS: SPIRONOLACTONE 50MG TABLET PO SCH (09:00)
[2018-03-12] MEDS: FUROSEMIDE 100MG/10ML VIAL IVP SCH ×2 (09:00→17:40)
[2018-03-12] MEDS ORDERED: POTASSIUM CHLORIDE 20MEQ TABLET SR PO NR (10:00)
[2018-03-12 12:00] VITALS: BP 93/61
[2018-03-12 16:00] VITALS: BP 109/75
[2018-03-12] MEDS: MONTELUKAST SODIUM 10MG TABLET PO SCH (17:40)
[2018-03-12 20:00] VITALS: BP 91/51
[2018-03-12] MEDS: CARVEDILOL 3.125 MG TABLET PO SCH (20:47)
[2018-03-13] VITALS: BP 103/67
[2018-03-13 04:00] VITALS: BP 113/74
[2018-03-13] MEDS: HYDROCODONE/ACETAMINOPHEN 5/325MG TABLET PO PRN ×2 (05:16→09:53)
[2018-03-13] MEDS: INSULIN LISPRO 100 UNITS/ML SUBCUT SCH ×2 (06:23→12:15)
[2018-03-13] MEDS: BLOOD SUGAR DIAGNOSTIC STRIP TEST SCH ×2 (06:23→11:45)
[2018-03-13 07:33] LABS: BASOPHILS % 0.6 % (0.0-2.0); EOSINOPHILS % 0.4 % (0.0-5.0); HEMATOCRIT. 38.9 % (42.0-52.0); HEMOGLOBIN. 12.2 g/dL (14.0-18.0); LYMPHOCYTES % 19.6 % (20.0-50.0); MEAN CORPUSCULAR HEMOGLOBIN 27.7 pg (28.0-32.0); MEAN CORPUSCULAR VOLUME 88.6 fL (80.0-94.0); MEAN PLATELET VOLUME 8.2 fl (7.4-10.4); NEUTROPHILS % 66.4 % (40.0-76.0); PLATELET 364 x1000/uL (130-400); RED BLOOD CELL COUNT 4.39 mill/uL (4.7-6.1); RED CELL DISTRIBUTION WIDTH 18.8 % (11.6-14.6)
[2018-03-13 08:00] VITALS: BP 99/69
[2018-03-13] MEDS: FUROSEMIDE 100MG/10ML VIAL IVP SCH (09:00)
[2018-03-13] MEDS: ENTRESTO PO SCH (09:00)
[2018-03-13] MEDS: CARVEDILOL 3.125 MG TABLET PO SCH (09:00)
[2018-03-13] MEDS: ASPIRIN 81MG EC TABLET PO SCH (09:50)
[2018-03-13] MEDS: ENOXAPARIN 40MG/0.4ML SYR SUBCUT SCH (09:50)
[2018-03-13 11:03] LABS: CHLORIDE 92 mEq/L (98-107)
[2018-03-13 12:00] VITALS: BP 103/61
[2018-03-13] MEDS ORDERED: COR3 PO (15:25)
[2018-03-13 16:00] VITALS: BP 125/80
[2018-03-13 16:38] VITALS: BP 125/80
== END 2018-03-13 17:00 | disposition home health service (06) | DRG 140 ==
LOC: ER 15:25 → EDBEDREQ 16:09 → 5WST 17:26 → EDBEDREQTM 17:30 → EDBEDREQ 17:30 → ENRESERV 20:36
PROVIDERS: ADMIT Internal Medicine; ATTEND Internal Medicine
DX: J44.1 Chronic obstructive pulmonary disease with (acute) exacerbation (principal); J96.20 Acute and chronic respiratory failure, unspecified whether with hypoxia or hypercapnia; I50.23 Acute on chronic systolic (congestive) heart failure; I27.20 Pulmonary hypertension, unspecified; E44.0 Moderate protein-calorie malnutrition; I42.0 Dilated cardiomyopathy; E66.01 Morbid (severe) obesity due to excess calories; N04.9 Nephrotic syndrome with unspecified morphologic changes; I11.0 Hypertensive heart disease with heart failure; E11.9 Type 2 diabetes mellitus without complications; D64.9 Anemia, unspecified; E78.5 Hyperlipidemia, unspecified; E87.6 Hypokalemia; G47.30 Sleep apnea, unspecified; I50.82 Biventricular heart failure; L73.2 Hidradenitis suppurativa; Z87.891 Personal history of nicotine dependence; Z99.81 Dependence on supplemental oxygen; G47.33 Obstructive sleep apnea (adult) (pediatric); Z68.43 Body mass index [BMI] 50.0-59.9, adult
CPT/HCPCS: 36415; 71045; 80048; 80305; 82962; 83605; 83880; 84145; 84484; 93005; 93970; 94640; 96374; 97116; 97162; 97166; 97530; 99291; J1650; J1815; J1940; J2543; J2930; J3370; J7611; J7620; J7626

== ENCOUNTER 2018-03-31 00:31 | Inpatient (IN) | payer MEDICAID ==
[2018-03-31] VITALS (9 sets, daily range): BP systolic 94–135; BP diastolic 48–100
[~2018-03-31] VITALS: Ht 165.1 cm; Wt 147.4 kg
[~2018-03-31 00:31] MED LIST changes: -AMLO5TAB88 PO; +BISA-81 PO; -CLOT15CR2 TOP; +COR3 PO; +FURO80TA87 PO
[2018-03-31] MEDS ORDERED: FUROSEMIDE 40MG/4ML VIAL IV ONE (01:00)
[2018-03-31 02:14] LABS: BASOPHILS % 0.8 % (0.0-2.0); EOSINOPHILS % 0.5 % (0.0-5.0); HEMOGLOBIN. 10.8 g/dL (14.0-18.0); LYMPHOCYTES % 17.5 % (20.0-50.0); MEAN CORPUSCULAR HEMOGLOBIN 27.3 pg (28.0-32.0); MEAN CORPUSCULAR VOLUME 88.6 fL (80.0-94.0); MEAN PLATELET VOLUME 8.4 fl (7.4-10.4); MONOCYTES % 9.8 % (2.0-8.0); NEUTROPHILS % 71.4 % (40.0-76.0); PLATELET 364 x1000/uL (130-400); RED BLOOD CELL COUNT 3.95 mill/uL (4.7-6.1)
[2018-03-31 02:30] LABS: CHLORIDE 106 mEq/L (98-107)
[2018-03-31] MEDS ORDERED: ONDANSETRON HCL 4MG/2ML INJ IV PRN (08:00)
[2018-03-31] MEDS: LOSARTAN POTASSIUM 25 MG TABLET PO SCH (08:23)
[2018-03-31] MEDS: ASPIRIN 81MG TABLET PO SCH (08:23)
[2018-03-31] MEDS: FUROSEMIDE 100MG/10ML VIAL IVP SCH ×2 (08:23→16:15)
[2018-03-31] MEDS: CARVEDILOL 3.125 MG TABLET PO SCH ×2 (08:24→20:52)
[2018-03-31] MEDS ORDERED: ENOXAPARIN 40MG/0.4ML SYR SUBCUT SCH (09:00)
[2018-03-31 10:02] LABS: *AMPHETAMINES SCREEN URINE NEGATIVE (NEGATIVE); *BARBITURATES SCREEN URINE NEGATIVE (NEGATIVE)
[2018-03-31 10:03] LABS: *BENZODIAZEPINES SCREEN URINE NEGATIVE (NEGATIVE); *COCAINE SCREEN URINE PRESUMTIVE POSITIVE (NEGATIVE); CANNABINOID URINE SCREEN NEGATIVE (NEGATIVE); METHADONE URINE SCREEN NEGATIVE (NEGATIVE); OPIATES URINE SCREEN NEGATIVE (NEGATIVE); PHENCYCLIDINE URINE SCREEN NEGATIVE (NEGATIVE)
[2018-03-31] MEDS: HYDROCODONE/ACETAMINOPHEN 5/325MG TABLET PO PRN ×2 (16:27→20:51)
[2018-03-31] MEDS: ENOXAPARIN 30MG/0.3ML SYR SUBCUT SCH (20:52)
[2018-03-31] MEDS: BUDESONIDE 0.5MG/2ML NEB HHN SCH (22:09)
[2018-03-31] MEDS: IPRATROPIUM/ALBUTEROL 0.5-3(2.5)MG/3ML NEB HHN PRN (22:32)
[2018-04-01] VITALS (11 sets, daily range): BP systolic 92–122; BP diastolic 43–72
[2018-04-01 05:56] LABS: BASOPHILS % 0.9 % (0.0-2.0); EOSINOPHILS % 1.3 % (0.0-5.0); HEMOGLOBIN. 10.8 g/dL (14.0-18.0); LYMPHOCYTES % 19.7 % (20.0-50.0); MEAN CORPUSCULAR HEMOGLOBIN 27.2 pg (28.0-32.0); MEAN CORPUSCULAR VOLUME 88.4 fL (80.0-94.0); MEAN PLATELET VOLUME 8.3 fl (7.4-10.4); MONOCYTES % 10.8 % (2.0-8.0); NEUTROPHILS % 67.3 % (40.0-76.0); PLATELET 279 x1000/uL (130-400); RED BLOOD CELL COUNT 3.96 mill/uL (4.7-6.1); RED CELL DISTRIBUTION WIDTH 18.9 % (11.6-14.6)
[2018-04-01] MEDS: FUROSEMIDE 100MG/10ML VIAL IVP SCH (06:00)
[2018-04-01] MEDS: HYDROCODONE/ACETAMINOPHEN 5/325MG TABLET PO PRN (06:02)
[2018-04-01 06:05] LABS: CHLORIDE 100 mEq/L (98-107)
[2018-04-01] MEDS: ASPIRIN 81MG TABLET PO SCH (08:46)
[2018-04-01] MEDS: LOSARTAN POTASSIUM 25 MG TABLET PO SCH (08:46)
[2018-04-01] MEDS: CARVEDILOL 3.125 MG TABLET PO SCH (08:46)
[2018-04-01] MEDS: ENOXAPARIN 30MG/0.3ML SYR SUBCUT SCH (08:46)
[2018-04-01] MEDS ORDERED: FURO10VI3 PO (10:47)
[2018-04-01] MEDS ORDERED: CHLORHEXIDINE GLUCONATE 4% EXTERNAL USE TOP SCH (13:00)
[2018-04-01] MEDS: BUDESONIDE 0.5MG/2ML NEB HHN SCH (13:27)
[2018-04-01] MEDS: IPRATROPIUM/ALBUTEROL 0.5-3(2.5)MG/3ML NEB HHN PRN (13:28)
== END 2018-04-01 17:09 | disposition home or self-care (01) | DRG 133 ==
LOC: ER 00:31 → 3WST 02:44 → EDBEDREQ 02:50 → EDBEDREQSVC 02:50 → EDBEDREQTM 02:50 → ENRESERV 04:31
PROVIDERS: ADMIT Internal Medicine; ATTEND Internal Medicine
PROC: 5A09457 Assistance with Respiratory Ventilation, 24-96 Consecutive Hours, Continuous Positive Airway Pressure (ICD-10-PCS; principal; 2018-03-31)
DX: J96.20 Acute and chronic respiratory failure, unspecified whether with hypoxia or hypercapnia (principal); I50.23 Acute on chronic systolic (congestive) heart failure; I42.0 Dilated cardiomyopathy; Z99.81 Dependence on supplemental oxygen; E44.0 Moderate protein-calorie malnutrition; E66.01 Morbid (severe) obesity due to excess calories; Z68.43 Body mass index [BMI] 50.0-59.9, adult; I11.0 Hypertensive heart disease with heart failure; D64.9 Anemia, unspecified; E78.5 Hyperlipidemia, unspecified; F14.90 Cocaine use, unspecified, uncomplicated; G89.29 Other chronic pain; E66.9 Obesity, unspecified; K59.00 Constipation, unspecified; M54.9 Dorsalgia, unspecified; J44.9 Chronic obstructive pulmonary disease, unspecified; Z79.82 Long term (current) use of aspirin; Z79.899 Other long term (current) drug therapy; Z87.891 Personal history of nicotine dependence; Z91.14 Patient's other noncompliance with medication regimen; Z91.19 Patient's noncompliance with other medical treatment and regimen; Z88.8 Allergy status to other drugs, medicaments and biological substances; Z71.51 Drug abuse counseling and surveillance of drug abuser; Z71.3 Dietary counseling and surveillance
CPT/HCPCS: 36415; 71045; 80048; 80305; 82962; 83880; 84484; 87070; 93005; 94640; 94660; 96374; 99285; J1650; J1940; J7620; J7626

== ENCOUNTER 2018-04-12 09:05 | Inpatient (IN) | payer MEDICAID ==
[~2018-04-12] VITALS: Ht 165.1 cm; Wt 142.7 kg
[~2018-04-12 09:05] MED LIST changes: +FURO10VI3 PO; -FURO80TA87 PO
[2018-04-12] MEDS ORDERED: METHYLPREDNISOLONE SOD SUCC 125 MG/2 ML VIAL IV STA (10:09)
[2018-04-12] MEDS ORDERED: IPRATROPIUM BROMIDE (0.02%) 0.5MG/2.5ML NEB HHN STA (10:09)
[2018-04-12] MEDS ORDERED: ALBUTEROL (0.083%) 2.5MG/3ML NEB HHN STA (10:09)
[2018-04-12 10:34] LABS: BASOPHILS % 0.8 % (0.0-2.0); EOSINOPHILS % 0.2 % (0.0-5.0); HEMOGLOBIN. 10.4 g/dL (14.0-18.0); LYMPHOCYTES % 12.1 % (20.0-50.0); MEAN CORPUSCULAR HEMOGLOBIN 26.7 pg (28.0-32.0); MEAN CORPUSCULAR VOLUME 87.1 fL (80.0-94.0); MEAN PLATELET VOLUME 7.3 fl (7.4-10.4); NEUTROPHILS % 77.9 % (40.0-76.0); PLATELET 332 x1000/uL (130-400); RED CELL DISTRIBUTION WIDTH 19.4 % (11.6-14.6)
[2018-04-12 10:35] LABS: CHLORIDE 103 mEq/L (98-107)
[2018-04-12] MEDS ORDERED: ACETAMINOPHEN 325MG TABLET PO ONE (11:15)
[2018-04-12] MEDS ORDERED: ACETAMINOPHEN 325MG TABLET PO PRN (11:30)
[2018-04-12] MEDS ORDERED: ONDANSETRON HCL 4MG/2ML INJ IV PRN (11:30)
[2018-04-12] MEDS ORDERED: IPRATROPIUM/ALBUTEROL 0.5-3(2.5)MG/3ML NEB HHN PRN (11:30)
[2018-04-12 17:10] VITALS: BP 117/66
[2018-04-12] MEDS: METFORMIN HCL 500MG TABLET PO SCH (18:08)
[2018-04-12] MEDS: DOCUSATE SODIUM 100MG CAPSULE PO SCH (18:08)
[2018-04-12] MEDS: FUROSEMIDE 100MG/10ML VIAL IVP SCH (18:09)
[2018-04-12 18:12] VITALS: BP 94/66
[2018-04-12 20:01] VITALS: BP 107/70
[2018-04-12 21:01] VITALS: BP 129/69
[2018-04-12] MEDS: CARVEDILOL 6.25 MG TABLET PO SCH (21:14)
[2018-04-12] MEDS: ENOXAPARIN 40MG/0.4ML SYR SUBCUT SCH (21:15)
[2018-04-12] MEDS: BUDESONIDE 0.5MG/2ML NEB HHN SCH (21:25)
[2018-04-12] MEDS: IPRATROPIUM/ALBUTEROL 0.5-3(2.5)MG/3ML NEB HHN SCH (21:25)
[2018-04-12 22:12] VITALS: BP 96/52
[2018-04-12 23:14] VITALS: BP 115/90
[2018-04-13] VITALS (16 sets, daily range): BP systolic 90–113; BP diastolic 33–80
[2018-04-13] MEDS: IPRATROPIUM/ALBUTEROL 0.5-3(2.5)MG/3ML NEB HHN SCH ×4 (03:13→21:33)
[2018-04-13] MEDS: FUROSEMIDE 100MG/10ML VIAL IVP SCH ×2 (07:55→17:11)
[2018-04-13] MEDS: METFORMIN HCL 500MG TABLET PO SCH ×2 (07:55→17:11)
[2018-04-13] MEDS: ENOXAPARIN 40MG/0.4ML SYR SUBCUT SCH ×2 (07:56→21:42)
[2018-04-13] MEDS: CARVEDILOL 6.25 MG TABLET PO SCH ×2 (07:56→21:00)
[2018-04-13] MEDS: DOCUSATE SODIUM 100MG CAPSULE PO SCH ×2 (07:56→17:11)
[2018-04-13 07:57] LABS: HEMATOCRIT. 32.3 % (42.0-52.0); MEAN CORPUSCULAR HEMOGLOBIN 27.2 pg (28.0-32.0); MEAN CORPUSCULAR VOLUME 87.9 fL (80.0-94.0); MEAN PLATELET VOLUME 7.9 fl (7.4-10.4); PLATELET 297 x1000/uL (130-400); RED BLOOD CELL COUNT 3.68 mill/uL (4.7-6.1); RED CELL DISTRIBUTION WIDTH 19.6 % (11.6-14.6)
[2018-04-13 08:14] LABS: CHLORIDE 102 mEq/L (98-107)
[2018-04-13] MEDS: BUDESONIDE 0.5MG/2ML NEB HHN SCH (08:55)
[2018-04-13] MEDS: LOSARTAN POTASSIUM 25 MG TABLET PO SCH (09:00)
[2018-04-13] MEDS: ASPIRIN 81MG EC TABLET PO SCH (10:22)
[2018-04-13] MEDS: POTASSIUM CHLORIDE 20MEQ TABLET SR PO SCH (10:22)
[2018-04-13 12:51] LABS: PLATELET ESTIMATE NORMAL
[2018-04-13 21:10] LABS: *AMPHETAMINES SCREEN URINE NEGATIVE (NEGATIVE); *BARBITURATES SCREEN URINE NEGATIVE (NEGATIVE); *COCAINE SCREEN URINE NEGATIVE (NEGATIVE)
[2018-04-13 21:11] LABS: *BENZODIAZEPINES SCREEN URINE NEGATIVE (NEGATIVE); METHADONE URINE SCREEN NEGATIVE (NEGATIVE)
[2018-04-13 21:12] LABS: CANNABINOID URINE SCREEN NEGATIVE (NEGATIVE); OPIATES URINE SCREEN NEGATIVE (NEGATIVE); PHENCYCLIDINE URINE SCREEN NEGATIVE (NEGATIVE)
[2018-04-13] MEDS: ATORVASTATIN CALCIUM 20MG TABLET PO SCH (21:44)
[2018-04-14] VITALS (14 sets, daily range): BP systolic 86–123; BP diastolic 42–72
[2018-04-14 06:52] LABS: BASOPHILS % 0.3 % (0.0-2.0); EOSINOPHILS % 0.2 % (0.0-5.0); HEMATOCRIT. 33.3 % (42.0-52.0); HEMOGLOBIN. 9.9 g/dL (14.0-18.0); LYMPHOCYTES % 7.3 % (20.0-50.0); MEAN CORPUSCULAR HEMOGLOBIN 26.5 pg (28.0-32.0); MEAN CORPUSCULAR VOLUME 88.8 fL (80.0-94.0); MEAN PLATELET VOLUME 7.8 fl (7.4-10.4); MONOCYTES % 9.3 % (2.0-8.0); NEUTROPHILS % 82.9 % (40.0-76.0); PLATELET 334 x1000/uL (130-400); RED BLOOD CELL COUNT 3.75 mill/uL (4.7-6.1); RED CELL DISTRIBUTION WIDTH 19.2 % (11.6-14.6)
[2018-04-14 07:13] LABS: CHLORIDE 102 mEq/L (98-107)
[2018-04-14] MEDS: ENOXAPARIN 40MG/0.4ML SYR SUBCUT SCH ×2 (08:46→21:44)
[2018-04-14] MEDS: POTASSIUM CHLORIDE 20MEQ TABLET SR PO SCH (08:46)
[2018-04-14] MEDS: METFORMIN HCL 500MG TABLET PO SCH ×2 (08:46→17:12)
[2018-04-14] MEDS: DOCUSATE SODIUM 100MG CAPSULE PO SCH ×2 (08:46→17:12)
[2018-04-14] MEDS: ASPIRIN 81MG EC TABLET PO SCH (08:46)
[2018-04-14] MEDS: LOSARTAN POTASSIUM 25 MG TABLET PO SCH (08:47)
[2018-04-14] MEDS: FUROSEMIDE 100MG/10ML VIAL IVP SCH ×2 (08:47→17:12)
[2018-04-14] MEDS: CARVEDILOL 6.25 MG TABLET PO SCH ×2 (08:47→22:32)
[2018-04-14] MEDS: BUDESONIDE 0.5MG/2ML NEB HHN SCH ×2 (09:56→21:12)
[2018-04-14] MEDS: IPRATROPIUM/ALBUTEROL 0.5-3(2.5)MG/3ML NEB HHN SCH ×3 (09:56→21:12)
[2018-04-14] MEDS: ATORVASTATIN CALCIUM 20MG TABLET PO SCH (21:43)
[2018-04-14] MEDS: HYDROCODONE/ACETAMINOPHEN 5/325MG TABLET PO PRN (22:33)
[2018-04-15] VITALS (11 sets, daily range): BP systolic 91–148; BP diastolic 56–98
[2018-04-15] MEDS: IPRATROPIUM/ALBUTEROL 0.5-3(2.5)MG/3ML NEB HHN SCH ×3 (02:27→20:43)
[2018-04-15 05:53] LABS: BASOPHILS % 0.2 % (0.0-2.0); EOSINOPHILS % 0.4 % (0.0-5.0); HEMATOCRIT. 33.6 % (42.0-52.0); HEMOGLOBIN. 10.2 g/dL (14.0-18.0); LYMPHOCYTES % 18.4 % (20.0-50.0); MEAN CORPUSCULAR HEMOGLOBIN 26.6 pg (28.0-32.0); MEAN CORPUSCULAR VOLUME 87.5 fL (80.0-94.0); MEAN PLATELET VOLUME 7.8 fl (7.4-10.4); MONOCYTES % 10.5 % (2.0-8.0); NEUTROPHILS % 70.5 % (40.0-76.0); PLATELET 339 x1000/uL (130-400); RED BLOOD CELL COUNT 3.84 mill/uL (4.7-6.1); RED CELL DISTRIBUTION WIDTH 19.6 % (11.6-14.6)
[2018-04-15 06:12] LABS: CHLORIDE 100 mEq/L (98-107)
[2018-04-15] MEDS: HYDROCODONE/ACETAMINOPHEN 5/325MG TABLET PO PRN (06:17)
[2018-04-15] MEDS: ASPIRIN 81MG EC TABLET PO SCH (08:24)
[2018-04-15] MEDS: DOCUSATE SODIUM 100MG CAPSULE PO SCH ×2 (08:24→17:34)
[2018-04-15] MEDS: ENOXAPARIN 40MG/0.4ML SYR SUBCUT SCH ×2 (08:24→21:30)
[2018-04-15] MEDS: POTASSIUM CHLORIDE 20MEQ TABLET SR PO SCH (08:24)
[2018-04-15] MEDS: FUROSEMIDE 100MG/10ML VIAL IVP SCH ×2 (08:24→17:34)
[2018-04-15] MEDS: METFORMIN HCL 500MG TABLET PO SCH ×2 (08:24→17:34)
[2018-04-15] MEDS: CARVEDILOL 6.25 MG TABLET PO SCH ×2 (08:25→21:31)
[2018-04-15] MEDS: LOSARTAN POTASSIUM 25 MG TABLET PO SCH (08:26)
[2018-04-15] MEDS: BUDESONIDE 0.5MG/2ML NEB HHN SCH (09:21)
[2018-04-15] MEDS: ATORVASTATIN CALCIUM 20MG TABLET PO SCH (21:30)
[2018-04-16] VITALS (7 sets, daily range): BP systolic 97–130; BP diastolic 50–81
[2018-04-16] MEDS: IPRATROPIUM/ALBUTEROL 0.5-3(2.5)MG/3ML NEB HHN SCH ×2 (01:57→08:10)
[2018-04-16] MEDS: DOCUSATE SODIUM 100MG CAPSULE PO SCH (08:44)
[2018-04-16] MEDS: METFORMIN HCL 500MG TABLET PO SCH (08:44)
[2018-04-16] MEDS: ASPIRIN 81MG EC TABLET PO SCH (08:44)
[2018-04-16] MEDS: FUROSEMIDE 100MG/10ML VIAL IVP SCH (08:44)
[2018-04-16] MEDS: POTASSIUM CHLORIDE 20MEQ TABLET SR PO SCH (08:44)
[2018-04-16] MEDS: ENOXAPARIN 40MG/0.4ML SYR SUBCUT SCH (08:45)
[2018-04-16] MEDS: CARVEDILOL 6.25 MG TABLET PO SCH (08:45)
[2018-04-16] MEDS: LOSARTAN POTASSIUM 25 MG TABLET PO SCH (08:56)
== END 2018-04-16 12:00 | disposition home or self-care (01) | DRG 133 ==
LOC: ER 09:05 → 3WST 11:15 → EDBEDREQ 11:17 → ENRESERV 13:16 → CANRESERV 13:16 → ENRESERV 14:07
PROVIDERS: ADMIT Internal Medicine; ATTEND Internal Medicine
PROC: 5A09357 Assistance with Respiratory Ventilation, Less than 24 Consecutive Hours, Continuous Positive Airway Pressure (ICD-10-PCS; principal; 2018-04-12)
DX: J96.20 Acute and chronic respiratory failure, unspecified whether with hypoxia or hypercapnia (principal); I50.23 Acute on chronic systolic (congestive) heart failure; E43 Unspecified severe protein-calorie malnutrition; I47.2 Ventricular tachycardia; J84.9 Interstitial pulmonary disease, unspecified; I42.9 Cardiomyopathy, unspecified; Z99.81 Dependence on supplemental oxygen; E66.01 Morbid (severe) obesity due to excess calories; J44.1 Chronic obstructive pulmonary disease with (acute) exacerbation; G89.29 Other chronic pain; D64.9 Anemia, unspecified; I11.0 Hypertensive heart disease with heart failure; D72.821 Monocytosis (symptomatic); E78.5 Hyperlipidemia, unspecified; I48.91 Unspecified atrial fibrillation; F14.90 Cocaine use, unspecified, uncomplicated; F17.210 Nicotine dependence, cigarettes, uncomplicated; J45.901 Unspecified asthma with (acute) exacerbation; G47.33 Obstructive sleep apnea (adult) (pediatric); R74.8 Abnormal levels of other serum enzymes; I25.10 Atherosclerotic heart disease of native coronary artery without angina pectoris; R73.03 Prediabetes; Z68.43 Body mass index [BMI] 50.0-59.9, adult; Z88.6 Allergy status to analgesic agent; Z79.899 Other long term (current) drug therapy; Z71.89 Other specified counseling
CPT/HCPCS: 36415; 71045; 80048; 80305; 83880; 84484; 93005; 94640; 94660; 96374; 99285; J1650; J1940; J2930; J7611; J7620; J7626

== ENCOUNTER 2018-04-26 05:09 | Inpatient (IN) | payer MEDICAID ==
[~2018-04-26] VITALS: Ht 165.1 cm; Wt 153.0 kg
[2018-04-26] MEDS ORDERED: METHYLPREDNISOLONE SOD SUCC 125 MG/2 ML VIAL IV STA (06:06)
[2018-04-26] MEDS ORDERED: ALBUTEROL (0.083%) 2.5MG/3ML NEB HHN STA (06:06)
[2018-04-26] MEDS ORDERED: IPRATROPIUM BROMIDE (0.02%) 0.5MG/2.5ML NEB HHN STA (06:06)
[2018-04-26] MEDS ORDERED: FUROSEMIDE 20MG/2ML VIAL IVP ONE (06:15)
[2018-04-26] MEDS ORDERED: MAGNESIUM 2 G PREMIX 50 ML IV ONE (06:15)
[2018-04-26 06:32] LABS: BASOPHILS % 0.6 % (0.0-2.0); EOSINOPHILS % 0.2 % (0.0-5.0); HEMOGLOBIN. 10.4 g/dL (14.0-18.0); LYMPHOCYTES % 9.8 % (20.0-50.0); MEAN CORPUSCULAR HEMOGLOBIN 26.8 pg (28.0-32.0); MEAN CORPUSCULAR VOLUME 87.6 fL (80.0-94.0); MEAN PLATELET VOLUME 7.4 fl (7.4-10.4); MONOCYTES % 7.9 % (2.0-8.0); NEUTROPHILS % 81.5 % (40.0-76.0); PLATELET 295 x1000/uL (130-400); RED BLOOD CELL COUNT 3.88 mill/uL (4.7-6.1)
[2018-04-26 06:39] LABS: CHLORIDE 107 mEq/L (98-107)
[2018-04-26 07:01] LABS: INR 1.1; PARTIAL THROMBOPLASTIN TIME 26.4 sec (23.4-31.0); PROTHROMBIN TIME 11.3 sec (9.1-11.1)
[2018-04-26] MEDS ORDERED: ONDANSETRON HCL 4MG/2ML INJ IV PRN (08:45)
[2018-04-26] MEDS ORDERED: ACETAMINOPHEN 325MG TABLET PO PRN (08:45)
[2018-04-26] MEDS ORDERED: CLONIDINE 0.1MG TABLET PO PRN (08:45)
[2018-04-26] MEDS ORDERED: MAGNESIUM/ALUMINUM HYDROXIDE/SIMETHICONE 30ML UDC PO PRN (08:45)
[2018-04-26] MEDS ORDERED: DIPHENHYDRAMINE 50MG/ML VIAL IV PRN (08:45)
[2018-04-26] MEDS ORDERED: GUAIFENESIN 200MG/10ML SUGAR FREE UDC PO PRN (08:45)
[2018-04-26 09:25] LABS: PHOSPHORUS 3.9 mg/dL (2.5-4.9)
[2018-04-26 10:00] VITALS: BP 136/95
[2018-04-26] MEDS ORDERED: FURO80TA3 MT (10:10)
[2018-04-26 10:30] VITALS: BP 136/95
[2018-04-26] MEDS: ENOXAPARIN 40MG/0.4ML SYR SUBCUT SCH ×2 (10:33→21:06)
[2018-04-26 12:00] VITALS: BP 123/78
[2018-04-26 16:00] VITALS: BP 128/77
[2018-04-26 16:43] LABS: CREATINE KINASE MB FRACTION 1.5 ng/mL (0.5-3.6)
[2018-04-26] MEDS ORDERED: DEXTROSE 50% WATER 50ML SYRINGE IV PRN (19:30)
[2018-04-26] MEDS: BLOOD SUGAR DIAGNOSTIC STRIP TEST SCH (20:15)
[2018-04-26 20:30] VITALS: BP 119/63
[2018-04-26] MEDS ORDERED: FUROSEMIDE 40MG/4ML VIAL IVP NR (21:00)
[2018-04-26] MEDS: INSULIN LISPRO 100 UNITS/ML SUBCUT SCH (21:06)
[2018-04-27] VITALS (7 sets, daily range): BP systolic 107–128; BP diastolic 59–85
[2018-04-27 01:21] LABS: CREATINE KINASE MB FRACTION 1.4 ng/mL (0.5-3.6)
[2018-04-27] MEDS: BLOOD SUGAR DIAGNOSTIC STRIP TEST SCH ×4 (06:32→20:13)
[2018-04-27] MEDS: INSULIN LISPRO 100 UNITS/ML SUBCUT SCH ×4 (06:34→20:19)
[2018-04-27] MEDS: IPRATROPIUM/ALBUTEROL 0.5-3(2.5)MG/3ML NEB INH PRN (07:41)
[2018-04-27 07:45] LABS: HEMATOCRIT. 32.3 % (42.0-52.0); HEMOGLOBIN. 9.8 g/dL (14.0-18.0); MEAN CORPUSCULAR HEMOGLOBIN 26.5 pg (28.0-32.0); MEAN CORPUSCULAR VOLUME 87.7 fL (80.0-94.0); MEAN PLATELET VOLUME 8.2 fl (7.4-10.4); PLATELET 300 x1000/uL (130-400); RED BLOOD CELL COUNT 3.68 mill/uL (4.7-6.1); RED CELL DISTRIBUTION WIDTH 19.6 % (11.6-14.6)
[2018-04-27 08:07] LABS: CHLORIDE 103 mEq/L (98-107)
[2018-04-27 08:23] LABS: LDL CHOLESTEROL 97 mg/dL (5-100)
[2018-04-27 08:24] LABS: HDL CHOLESTEROL 28 mg/dL (40-59)
[2018-04-27] MEDS ORDERED: FUROSEMIDE 40MG/4ML VIAL IVP SCH (09:00)
[2018-04-27] MEDS ORDERED: METHYLPREDNISOLONE SOD SUCC 40 MG/ML VIAL IV SCH (09:00)
[2018-04-27] MEDS: HYDROCODONE/ACETAMINOPHEN 5/325MG TABLET PO PRN ×2 (09:27→17:59)
[2018-04-27] MEDS: ENOXAPARIN 40MG/0.4ML SYR SUBCUT SCH ×2 (09:27→20:14)
[2018-04-27] MEDS ORDERED: POTASSIUM CHLORIDE 20MEQ TABLET SR PO SCH (09:45)
[2018-04-27] MEDS: LOSARTAN POTASSIUM 50 MG TABLET PO SCH (09:56)
[2018-04-27] MEDS: ASPIRIN 81MG TABLET PO SCH (09:57)
[2018-04-27 10:04] LABS: PLATELET ESTIMATE NORMAL
[2018-04-27] MEDS: FUROSEMIDE 40MG/4ML VIAL IVP SCH (17:55)
[2018-04-27] MEDS ORDERED: CARVEDILOL 6.25 MG TABLET PO SCH (21:00)
[2018-04-27 22:40] LABS: CLARITY URINE CLEAR (CLEAR); COLOR URINE YELLOW (YELLOW); KETONES URINE NEGATIVE (NEGATIVE); LEUKOCYTE ESTERASE URINE NEGATIVE (NEGATIVE); NITRITE URINE NEGATIVE (NEGATIVE); OCCULT BLOOD URINE TRACE (NEGATIVE); PROTEIN URINE NEGATIVE (NEGATIVE); SPECIFIC GRAVITY URINE 1.011 (1.005-1.030); UROBILINOGEN URINE 0.2 E.U./dL (0.2-1.0)
[2018-04-28] MEDS: HYDROCODONE/ACETAMINOPHEN 5/325MG TABLET PO PRN ×3 (00:01→20:19)
[2018-04-28 04:00] VITALS: BP 110/64
[2018-04-28] MEDS: INSULIN LISPRO 100 UNITS/ML SUBCUT SCH ×4 (06:17→20:13)
[2018-04-28] MEDS: FUROSEMIDE 40MG/4ML VIAL IVP SCH (06:17)
[2018-04-28] MEDS: BLOOD SUGAR DIAGNOSTIC STRIP TEST SCH ×4 (06:17→20:13)
[2018-04-28 06:28] LABS: HEMOGLOBIN. 9.6 g/dL (14.0-18.0); MEAN CORPUSCULAR HEMOGLOBIN 26.4 pg (28.0-32.0); MEAN CORPUSCULAR VOLUME 88.1 fL (80.0-94.0); MEAN PLATELET VOLUME 8.2 fl (7.4-10.4); PLATELET 292 x1000/uL (130-400); RED BLOOD CELL COUNT 3.64 mill/uL (4.7-6.1); RED CELL DISTRIBUTION WIDTH 19.4 % (11.6-14.6)
[2018-04-28 07:16] LABS: CHLORIDE 102 mEq/L (98-107)
[2018-04-28 08:00] VITALS: BP 107/64
[2018-04-28] MEDS: CARVEDILOL 6.25 MG TABLET PO SCH ×2 (08:10→20:13)
[2018-04-28] MEDS: LOSARTAN POTASSIUM 50 MG TABLET PO SCH (08:10)
[2018-04-28] MEDS: ENOXAPARIN 40MG/0.4ML SYR SUBCUT SCH ×2 (09:00→20:19)
[2018-04-28] MEDS: ASPIRIN 81MG TABLET PO SCH (09:02)
[2018-04-28] MEDS: DOCUSATE SODIUM 100MG CAPSULE PO PRN (10:30)
[2018-04-28] MEDS ORDERED: MORPHINE SULFATE 4 MG/ML CPJ (NOT FOR IM USE) IV PRN (10:45)
[2018-04-28 11:43] VITALS: BP 108/71
[2018-04-28] MEDS: IPRATROPIUM/ALBUTEROL 0.5-3(2.5)MG/3ML NEB INH PRN ×2 (12:15→23:59)
[2018-04-28 16:00] VITALS: BP 108/61
[2018-04-28] MEDS: FUROSEMIDE 100MG/10ML VIAL IVP SCH (17:18)
[2018-04-28 20:00] VITALS: BP 102/70
[2018-04-29 00:30] VITALS: BP 108/65
[2018-04-29 04:25] VITALS: BP 103/80
[2018-04-29] MEDS: INSULIN LISPRO 100 UNITS/ML SUBCUT SCH ×4 (06:22→21:37)
[2018-04-29] MEDS: FUROSEMIDE 100MG/10ML VIAL IVP SCH ×2 (06:22→17:04)
[2018-04-29] MEDS: BLOOD SUGAR DIAGNOSTIC STRIP TEST SCH ×4 (06:22→21:09)
[2018-04-29 06:48] LABS: BASOPHILS % 0.3 % (0.0-2.0); EOSINOPHILS % 0.1 % (0.0-5.0); MEAN CORPUSCULAR HEMOGLOBIN 26.3 pg (28.0-32.0); MEAN CORPUSCULAR VOLUME 86.8 fL (80.0-94.0); MEAN PLATELET VOLUME 7.9 fl (7.4-10.4); MONOCYTES % 12.5 % (2.0-8.0); NEUTROPHILS % 73.1 % (40.0-76.0); PLATELET 318 x1000/uL (130-400); RED CELL DISTRIBUTION WIDTH 19.1 % (11.6-14.6)
[2018-04-29 07:04] LABS: CHLORIDE 103 mEq/L (98-107)
[2018-04-29 07:52] VITALS: BP 102/63
[2018-04-29] MEDS: CARVEDILOL 3.125 MG TABLET PO SCH ×2 (08:29→21:00)
[2018-04-29] MEDS: LOSARTAN POTASSIUM 50 MG TABLET PO SCH (08:29)
[2018-04-29] MEDS: IPRATROPIUM/ALBUTEROL 0.5-3(2.5)MG/3ML NEB HHN SCH ×3 (08:52→17:02)
[2018-04-29] MEDS: ASPIRIN 81MG TABLET PO SCH (09:12)
[2018-04-29] MEDS: ENOXAPARIN 40MG/0.4ML SYR SUBCUT SCH ×2 (09:12→21:34)
[2018-04-29] MEDS: HYDROCODONE/ACETAMINOPHEN 5/325MG TABLET PO PRN ×3 (10:27→21:35)
[2018-04-29 12:00] VITALS: BP 119/70
[2018-04-29] MEDS: METHYLPREDNISOLONE SOD SUCC 40 MG/ML VIAL IV SCH ×2 (12:22→21:33)
[2018-04-29 13:13] LABS: BG BASE EXCESS 4.4 mmol/L (-2.0-2.0); BG CARBOXYHEMOGLOBIN 0.6 % (0.5-1.5); BG DEOXYHEMOGLOBIN 2.9 % (0.0-5.0); BG FRACTION INSPIRED OXYGEN 30; BG HCO3 ACT 30.2 mmol/L (22.0-26.0); BG METHEMOGLOBIN 0.1 % (0.0-1.5); BG OXYGEN SATURATION 97.1 % (92.0-98.5); BG OXYHEMOGLOBIN 96.4 % (94.0-97.0); BG PCO2 50.6 mmHg (35.0-45.0); BG PH 7.393 (7.350-7.450); BG PO2 99.8 mmHg (75.0-100.0); BG SAMPLE SITE RIGHT RADIAL; BG TOTAL HEMOGLOBIN 11.3 g/dL (12.0-18.0); BG VENT MODE NASAL CANNULA
[2018-04-29 14:00] LABS: NUCLEATED RED BLOOD CELLS 2 /100 WBC
[2018-04-29 14:01] LABS: PLATELET ESTIMATE NORMAL
[2018-04-29] MEDS ORDERED: LIDOCAINE HCL/PF 1% 2ML VIAL ONE (15:44)
[2018-04-29 16:00] VITALS: BP 118/72
[2018-04-29 20:00] VITALS: BP 107/57
[2018-04-30] VITALS: BP 114/67
[2018-04-30] MEDS: IPRATROPIUM/ALBUTEROL 0.5-3(2.5)MG/3ML NEB HHN SCH ×6 (00:10→20:26)
[2018-04-30 04:00] VITALS: BP 156/91
[2018-04-30] MEDS: METHYLPREDNISOLONE SOD SUCC 40 MG/ML VIAL IV SCH ×3 (06:30→23:15)
[2018-04-30 06:31] LABS: MEAN CORPUSCULAR HEMOGLOBIN 26.7 pg (28.0-32.0); MEAN CORPUSCULAR VOLUME 85.7 fL (80.0-94.0); MEAN PLATELET VOLUME 7.9 fl (7.4-10.4); PLATELET 311 x1000/uL (130-400); RED BLOOD CELL COUNT 3.74 mill/uL (4.7-6.1); RED CELL DISTRIBUTION WIDTH 19.3 % (11.6-14.6)
[2018-04-30] MEDS: HYDROCODONE/ACETAMINOPHEN 5/325MG TABLET PO PRN ×2 (06:31→21:15)
[2018-04-30] MEDS: INSULIN LISPRO 100 UNITS/ML SUBCUT SCH ×4 (06:32→21:13)
[2018-04-30] MEDS: FUROSEMIDE 100MG/10ML VIAL IVP SCH ×2 (06:35→17:05)
[2018-04-30] MEDS: BLOOD SUGAR DIAGNOSTIC STRIP TEST SCH ×4 (06:35→21:16)
[2018-04-30 06:50] LABS: CHLORIDE 98 mEq/L (98-107)
[2018-04-30 08:00] VITALS: BP_SYST 103; BP_SYST 112; BP_DIAS 62; BP_DIAS 68
[2018-04-30] MEDS: ASPIRIN 81MG TABLET PO SCH (08:31)
[2018-04-30] MEDS: ENOXAPARIN 40MG/0.4ML SYR SUBCUT SCH ×2 (08:31→21:16)
[2018-04-30] MEDS: LOSARTAN POTASSIUM 50 MG TABLET PO SCH (08:31)
[2018-04-30] MEDS: CARVEDILOL 3.125 MG TABLET PO SCH ×2 (08:31→21:00)
[2018-04-30 12:00] VITALS: BP 94/58
[2018-04-30 20:00] VITALS: BP 91/51
[2018-04-30 20:42] LABS: PLATELET ESTIMATE NORMAL
[2018-04-30] MEDS: DOCUSATE SODIUM 100MG CAPSULE PO PRN (21:22)
[2018-05-01 00:36] VITALS: BP 108/63
[2018-05-01] MEDS: IPRATROPIUM/ALBUTEROL 0.5-3(2.5)MG/3ML NEB HHN SCH ×5 (00:50→14:12)
[2018-05-01 04:00] VITALS: BP 164/78
[2018-05-01] MEDS: HYDROCODONE/ACETAMINOPHEN 5/325MG TABLET PO PRN (05:52)
[2018-05-01 05:54] LABS: HEMATOCRIT. 32.4 % (42.0-52.0); HEMOGLOBIN. 9.9 g/dL (14.0-18.0); MEAN CORPUSCULAR HEMOGLOBIN 26.3 pg (28.0-32.0); MEAN CORPUSCULAR VOLUME 85.9 fL (80.0-94.0); MEAN PLATELET VOLUME 8.1 fl (7.4-10.4); PLATELET 324 x1000/uL (130-400); RED BLOOD CELL COUNT 3.77 mill/uL (4.7-6.1); RED CELL DISTRIBUTION WIDTH 19.4 % (11.6-14.6)
[2018-05-01] MEDS: METHYLPREDNISOLONE SOD SUCC 40 MG/ML VIAL IV SCH ×2 (05:54→13:23)
[2018-05-01 06:33] LABS: CHLORIDE 97 mEq/L (98-107)
[2018-05-01] MEDS: FUROSEMIDE 100MG/10ML VIAL IVP SCH (06:57)
[2018-05-01] MEDS: BLOOD SUGAR DIAGNOSTIC STRIP TEST SCH ×2 (07:10→12:45)
[2018-05-01] MEDS: INSULIN LISPRO 100 UNITS/ML SUBCUT SCH ×2 (07:11→13:25)
[2018-05-01 08:00] VITALS: BP 126/86
[2018-05-01] MEDS: ASPIRIN 81MG TABLET PO SCH (08:49)
[2018-05-01] MEDS: LOSARTAN POTASSIUM 50 MG TABLET PO SCH (08:49)
[2018-05-01] MEDS: CARVEDILOL 3.125 MG TABLET PO SCH (08:49)
[2018-05-01] MEDS: ENOXAPARIN 40MG/0.4ML SYR SUBCUT SCH (08:52)
[2018-05-01 12:42] VITALS: BP 102/58
[2018-05-01 14:01] VITALS: BP 102/58
[2018-05-01 14:25] LABS: PLATELET ESTIMATE NORMAL
== END 2018-05-01 16:35 | disposition home or self-care (01) | DRG 140 ==
LOC: ER 05:09 → 8WST 06:43 → EDBEDREQTM 06:46 → EDBEDREQ 06:46 → ENRESERV 08:10
PROVIDERS: ADMIT Internal Medicine; ATTEND Internal Medicine
PROC: 5A09357 Assistance with Respiratory Ventilation, Less than 24 Consecutive Hours, Continuous Positive Airway Pressure (ICD-10-PCS; principal; 2018-05-01)
DX: J44.1 Chronic obstructive pulmonary disease with (acute) exacerbation (principal); J96.20 Acute and chronic respiratory failure, unspecified whether with hypoxia or hypercapnia; I50.43 Acute on chronic combined systolic (congestive) and diastolic (congestive) heart failure; E44.0 Moderate protein-calorie malnutrition; I42.9 Cardiomyopathy, unspecified; E87.5 Hyperkalemia; E66.01 Morbid (severe) obesity due to excess calories; J45.901 Unspecified asthma with (acute) exacerbation; Z99.81 Dependence on supplemental oxygen; D64.9 Anemia, unspecified; E11.9 Type 2 diabetes mellitus without complications; I11.0 Hypertensive heart disease with heart failure; L73.2 Hidradenitis suppurativa; Z79.899 Other long term (current) drug therapy; Z91.19 Patient's noncompliance with other medical treatment and regimen; Z68.43 Body mass index [BMI] 50.0-59.9, adult; Z88.8 Allergy status to other drugs, medicaments and biological substances; Z79.82 Long term (current) use of aspirin
CPT/HCPCS: 36415; 36600; 71045; 80048; 80061; 82375; 82550; 82553; 82805; 82962; 83036; 83735; 83880; 84100; 84145; 84439; 84443; 84481; 84484; 93005; 93970; 94640; 96365; 96366; 96375; 97162; 97166; 97530; 97535; 99291; J1650; J1815; J1940; J2920; J2930; J3475; J3490; J7611; J7620

== ENCOUNTER 2018-05-10 15:10 | Inpatient (IN) | payer MEDICAID ==
[~2018-05-10] VITALS: Ht 180.3 cm; Wt 149.7 kg
[~2018-05-10 15:10] MED LIST changes: -FURO10VI3 PO; +FURO80TA3 MT
[2018-05-10] MEDS ORDERED: ALBUTEROL (0.083%) 2.5MG/3ML NEB HHN STA (15:40)
[2018-05-10] MEDS ORDERED: IPRATROPIUM BROMIDE (0.02%) 0.5MG/2.5ML NEB HHN STA (15:40)
[2018-05-10] MEDS ORDERED: FUROSEMIDE 40MG/4ML VIAL IV ONE (15:45)
[2018-05-10] MEDS ORDERED: ASPIRIN 81MG TABLET PO ONE (15:45)
[2018-05-10] MEDS ORDERED: ALBUTEROL (0.083%) 2.5MG/3ML NEB ONE (15:56)
[2018-05-10] MEDS ORDERED: IPRATROPIUM BROMIDE (0.02%) 0.5MG/2.5ML NEB ONE (15:56)
[2018-05-10 16:50] LABS: BASOPHILS % 0.5 % (0.0-2.0); EOSINOPHILS % 0.3 % (0.0-5.0); HEMATOCRIT. 34.9 % (42.0-52.0); HEMOGLOBIN. 10.9 g/dL (14.0-18.0); LYMPHOCYTES % 14.3 % (20.0-50.0); MEAN CORPUSCULAR HEMOGLOBIN 26.8 pg (28.0-32.0); MEAN CORPUSCULAR VOLUME 86.2 fL (80.0-94.0); MONOCYTES % 11.9 % (2.0-8.0); RED BLOOD CELL COUNT 4.05 mill/uL (4.7-6.1); RED CELL DISTRIBUTION WIDTH 19.8 % (11.6-14.6)
[2018-05-10 16:54] LABS: CHLORIDE 105 mEq/L (98-107)
[2018-05-10 17:09] LABS: PLATELET 251 x1000/uL (130-400)
[2018-05-10] MEDS ORDERED: ONDANSETRON HCL 4MG/2ML INJ IV PRN (23:30)
[2018-05-10] MEDS ORDERED: CLONIDINE 0.1MG TABLET PO PRN (23:30)
[2018-05-10] MEDS ORDERED: MAGNESIUM/ALUMINUM HYDROXIDE/SIMETHICONE 30ML UDC PO PRN (23:30)
[2018-05-10] MEDS ORDERED: IPRATROPIUM/ALBUTEROL 0.5-3(2.5)MG/3ML NEB INH PRN (23:30)
[2018-05-10] MEDS ORDERED: ACETAMINOPHEN 325MG TABLET PO PRN (23:30)
[2018-05-10] MEDS ORDERED: ENOXAPARIN 40MG/0.4ML SYR SUBCUT SCH (23:30)
[2018-05-11] VITALS (7 sets, daily range): BP systolic 93–133; BP diastolic 61–86
[2018-05-11 00:02] LABS: CHLORIDE 105 mEq/L (98-107)
[2018-05-11 06:35] LABS: CLARITY URINE CLEAR (CLEAR); COLOR URINE DARK YELLOW (YELLOW); KETONES URINE NEGATIVE (NEGATIVE); LEUKOCYTE ESTERASE URINE NEGATIVE (NEGATIVE); NITRITE URINE NEGATIVE (NEGATIVE); OCCULT BLOOD URINE TRACE (NEGATIVE); PROTEIN URINE NEGATIVE (NEGATIVE); SPECIFIC GRAVITY URINE 1.021 (1.005-1.030)
[2018-05-11 06:39] LABS: *AMPHETAMINES SCREEN URINE NEGATIVE (NEGATIVE); *BARBITURATES SCREEN URINE NEGATIVE (NEGATIVE)
[2018-05-11 06:40] LABS: *BENZODIAZEPINES SCREEN URINE NEGATIVE (NEGATIVE); *COCAINE SCREEN URINE NEGATIVE (NEGATIVE); METHADONE URINE SCREEN NEGATIVE (NEGATIVE); OPIATES URINE SCREEN NEGATIVE (NEGATIVE); PHENCYCLIDINE URINE SCREEN NEGATIVE (NEGATIVE)
[2018-05-11 06:41] LABS: CANNABINOID URINE SCREEN NEGATIVE (NEGATIVE)
[2018-05-11] MEDS ORDERED: FUROSEMIDE 40MG/4ML VIAL IV SCH (09:00)
[2018-05-11] MEDS: ENOXAPARIN 30MG/0.3ML SYR SUBCUT SCH ×2 (09:56→20:56)
[2018-05-11 11:08] LABS: BASOPHILS % 0.5 % (0.0-2.0); EOSINOPHILS % 0.4 % (0.0-5.0); HEMOGLOBIN. 10.8 g/dL (14.0-18.0); LYMPHOCYTES % 13.3 % (20.0-50.0); MEAN CORPUSCULAR VOLUME 87.4 fL (80.0-94.0); MEAN PLATELET VOLUME 7.7 fl (7.4-10.4); MONOCYTES % 10.2 % (2.0-8.0); NEUTROPHILS % 75.6 % (40.0-76.0); PLATELET 244 x1000/uL (130-400); RED CELL DISTRIBUTION WIDTH 20.1 % (11.6-14.6)
[2018-05-11 11:25] LABS: LDL CHOLESTEROL 115 mg/dL (5-100)
[2018-05-11 11:26] LABS: CREATINE KINASE 70 IU/L (39-308)
[2018-05-11 11:28] LABS: HDL CHOLESTEROL 23 mg/dL (40-59)
[2018-05-11 11:31] LABS: CREATINE KINASE MB FRACTION 1.1 ng/mL (0.5-3.6)
[2018-05-11] MEDS ORDERED: DEXTROSE 50% WATER 50ML SYRINGE IV PRN (16:30)
[2018-05-11] MEDS: BLOOD SUGAR DIAGNOSTIC STRIP TEST SCH ×4 (16:45→20:23)
[2018-05-11] MEDS: INSULIN LISPRO 100 UNITS/ML SUBCUT SCH ×2 (16:46→20:23)
[2018-05-11 17:09] LABS: CREATINE KINASE MB FRACTION < 1.0 ng/mL (0.5-3.6)
[2018-05-11 17:14] LABS: CREATINE KINASE 90 IU/L (39-308)
[2018-05-11] MEDS: FUROSEMIDE 100MG/10ML VIAL IV SCH (22:00)
[2018-05-11] MEDS: BUDESONIDE 0.5MG/2ML NEB HHN SCH (22:25)
[2018-05-11] MEDS: IPRATROPIUM/ALBUTEROL 0.5-3(2.5)MG/3ML NEB HHN SCH (22:26)
[2018-05-12] MEDS: IPRATROPIUM/ALBUTEROL 0.5-3(2.5)MG/3ML NEB HHN SCH ×4 (02:52→20:36)
[2018-05-12 04:00] VITALS: BP 115/76
[2018-05-12] MEDS: BLOOD SUGAR DIAGNOSTIC STRIP TEST SCH ×8 (06:21→21:56)
[2018-05-12] MEDS: INSULIN LISPRO 100 UNITS/ML SUBCUT SCH ×4 (07:50→21:00)
[2018-05-12 08:00] VITALS: BP 108/74
[2018-05-12 08:06] LABS: CHLORIDE 103 mEq/L (98-107)
[2018-05-12 08:17] LABS: BASOPHILS % 0.4 % (0.0-2.0); EOSINOPHILS % 0.8 % (0.0-5.0); HEMATOCRIT. 33.2 % (42.0-52.0); HEMOGLOBIN. 10.1 g/dL (14.0-18.0); LYMPHOCYTES % 15.4 % (20.0-50.0); MEAN CORPUSCULAR HEMOGLOBIN 26.6 pg (28.0-32.0); MEAN CORPUSCULAR VOLUME 87.7 fL (80.0-94.0); MEAN PLATELET VOLUME 8.1 fl (7.4-10.4); NEUTROPHILS % 74.4 % (40.0-76.0); PLATELET 225 x1000/uL (130-400); RED BLOOD CELL COUNT 3.79 mill/uL (4.7-6.1); RED CELL DISTRIBUTION WIDTH 19.8 % (11.6-14.6)
[2018-05-12] MEDS: BUDESONIDE 0.5MG/2ML NEB HHN SCH ×2 (09:34→20:35)
[2018-05-12] MEDS: ASPIRIN 81MG EC TABLET PO SCH (10:50)
[2018-05-12] MEDS: METOLAZONE 5MG TABLET PO SCH (10:50)
[2018-05-12] MEDS: ENOXAPARIN 30MG/0.3ML SYR SUBCUT SCH (10:51)
[2018-05-12] MEDS: FUROSEMIDE 100MG/10ML VIAL IV SCH ×2 (10:56→21:29)
[2018-05-12 12:00] VITALS: BP 107/72
[2018-05-12] MEDS ORDERED: POTASSIUM CHLORIDE 20MEQ/PACKET PO NR (12:15)
[2018-05-12 16:00] VITALS: BP 120/73
[2018-05-12 20:00] VITALS: BP 94/56
[2018-05-12] MEDS: HYDROCODONE/ACETAMINOPHEN 5/325MG TABLET PO PRN (21:26)
[2018-05-12] MEDS: ENOXAPARIN 40MG/0.4ML SYR SUBCUT SCH (21:29)
[2018-05-13] VITALS: BP 92/64
[2018-05-13] MEDS: IPRATROPIUM/ALBUTEROL 0.5-3(2.5)MG/3ML NEB HHN SCH ×3 (02:23→20:18)
[2018-05-13] MEDS: HYDROCODONE/ACETAMINOPHEN 5/325MG TABLET PO PRN (03:23)
[2018-05-13 04:00] VITALS: BP 99/58
[2018-05-13] MEDS: BLOOD SUGAR DIAGNOSTIC STRIP TEST SCH ×8 (06:46→21:53)
[2018-05-13] MEDS: INSULIN LISPRO 100 UNITS/ML SUBCUT SCH ×4 (07:50→21:00)
[2018-05-13 07:59] LABS: CHLORIDE 97 mEq/L (98-107)
[2018-05-13] MEDS: BUDESONIDE 0.5MG/2ML NEB HHN SCH ×2 (08:30→20:18)
[2018-05-13] MEDS: METOLAZONE 5MG TABLET PO SCH (09:10)
[2018-05-13] MEDS: ENOXAPARIN 40MG/0.4ML SYR SUBCUT SCH ×2 (09:11→21:53)
[2018-05-13] MEDS: ASPIRIN 81MG EC TABLET PO SCH (09:11)
[2018-05-13] MEDS: FUROSEMIDE 100MG/10ML VIAL IV SCH ×2 (09:12→21:53)
[2018-05-13 10:00] LABS: BASOPHILS % 0.5 % (0.0-2.0); EOSINOPHILS % 0.8 % (0.0-5.0); HEMATOCRIT. 34.7 % (42.0-52.0); HEMOGLOBIN. 10.7 g/dL (14.0-18.0); LYMPHOCYTES % 15.5 % (20.0-50.0); MEAN CORPUSCULAR HEMOGLOBIN 27.1 pg (28.0-32.0); MEAN CORPUSCULAR VOLUME 87.7 fL (80.0-94.0); MEAN PLATELET VOLUME 8.3 fl (7.4-10.4); MONOCYTES % 8.2 % (2.0-8.0); PLATELET 223 x1000/uL (130-400); RED BLOOD CELL COUNT 3.96 mill/uL (4.7-6.1); RED CELL DISTRIBUTION WIDTH 19.9 % (11.6-14.6)
[2018-05-13 16:00] VITALS: BP 102/66
[2018-05-13 20:00] VITALS: BP 99/61
[2018-05-14] VITALS: BP 121/87
[2018-05-14] MEDS: IPRATROPIUM/ALBUTEROL 0.5-3(2.5)MG/3ML NEB HHN SCH ×4 (00:17→21:40)
[2018-05-14] MEDS: HYDROCODONE/ACETAMINOPHEN 5/325MG TABLET PO PRN (06:01)
[2018-05-14] MEDS: BLOOD SUGAR DIAGNOSTIC STRIP TEST SCH ×7 (06:08→20:54)
[2018-05-14] MEDS: INSULIN LISPRO 100 UNITS/ML SUBCUT SCH ×4 (06:09→21:00)
[2018-05-14 06:24] LABS: BASOPHILS % 0.2 % (0.0-2.0); EOSINOPHILS % 0.5 % (0.0-5.0); HEMATOCRIT. 34.7 % (42.0-52.0); HEMOGLOBIN. 11.1 g/dL (14.0-18.0); MEAN CORPUSCULAR HEMOGLOBIN 27.2 pg (28.0-32.0); MEAN CORPUSCULAR VOLUME 85.5 fL (80.0-94.0); MEAN PLATELET VOLUME 8.2 fl (7.4-10.4); NEUTROPHILS % 77.3 % (40.0-76.0); PLATELET 240 x1000/uL (130-400); RED BLOOD CELL COUNT 4.06 mill/uL (4.7-6.1); RED CELL DISTRIBUTION WIDTH 20.3 % (11.6-14.6)
[2018-05-14 07:23] LABS: CHLORIDE 90 mEq/L (98-107)
[2018-05-14 08:00] VITALS: BP 95/62
[2018-05-14] MEDS: BUDESONIDE 0.5MG/2ML NEB HHN SCH (08:14)
[2018-05-14] MEDS: METOLAZONE 5MG TABLET PO SCH (08:42)
[2018-05-14] MEDS: ASPIRIN 81MG EC TABLET PO SCH (08:42)
[2018-05-14] MEDS: FUROSEMIDE 100MG/10ML VIAL IV SCH ×2 (08:43→20:53)
[2018-05-14] MEDS: ENOXAPARIN 40MG/0.4ML SYR SUBCUT SCH ×2 (08:43→20:54)
[2018-05-14] MEDS ORDERED: POTASSIUM CHLORIDE 20MEQ TABLET SR PO NR (11:15)
[2018-05-14] MEDS: AMLODIPINE 2.5MG TABLET PO SCH (11:30)
[2018-05-14 12:00] VITALS: BP 100/66
[2018-05-14] MEDS: ENTRESTO 24MG/26MG TABLET PO SCH ×2 (14:51→17:00)
[2018-05-14 16:00] VITALS: BP 102/65
[2018-05-14 20:00] VITALS: BP 107/56
[2018-05-15] VITALS: BP 99/52
[2018-05-15] MEDS: HYDROCODONE/ACETAMINOPHEN 5/325MG TABLET PO PRN (02:26)
[2018-05-15] MEDS: IPRATROPIUM/ALBUTEROL 0.5-3(2.5)MG/3ML NEB HHN SCH ×4 (02:33→13:55)
[2018-05-15 04:00] VITALS: BP 98/67
[2018-05-15 06:18] LABS: BASOPHILS % 0.6 % (0.0-2.0); EOSINOPHILS % 0.6 % (0.0-5.0); HEMOGLOBIN. 11.6 g/dL (14.0-18.0); LYMPHOCYTES % 16.7 % (20.0-50.0); MEAN CORPUSCULAR HEMOGLOBIN 26.8 pg (28.0-32.0); MEAN CORPUSCULAR VOLUME 85.8 fL (80.0-94.0); MEAN PLATELET VOLUME 8.1 fl (7.4-10.4); NEUTROPHILS % 70.1 % (40.0-76.0); PLATELET 253 x1000/uL (130-400); RED BLOOD CELL COUNT 4.31 mill/uL (4.7-6.1); RED CELL DISTRIBUTION WIDTH 20.4 % (11.6-14.6)
[2018-05-15] MEDS: BLOOD SUGAR DIAGNOSTIC STRIP TEST SCH ×2 (06:46→12:12)
[2018-05-15 06:50] LABS: CHLORIDE 91 mEq/L (98-107)
[2018-05-15] MEDS: INSULIN LISPRO 100 UNITS/ML SUBCUT SCH ×2 (07:50→12:31)
[2018-05-15 08:00] VITALS: BP 109/46
[2018-05-15] MEDS: AMLODIPINE 2.5MG TABLET PO SCH (09:00)
[2018-05-15] MEDS: FUROSEMIDE 100MG/10ML VIAL IV SCH (09:58)
[2018-05-15] MEDS: METOLAZONE 5MG TABLET PO SCH (09:59)
[2018-05-15] MEDS: ENOXAPARIN 40MG/0.4ML SYR SUBCUT SCH (09:59)
[2018-05-15] MEDS: ENTRESTO 24MG/26MG TABLET PO SCH (09:59)
[2018-05-15] MEDS: ASPIRIN 81MG EC TABLET PO SCH (09:59)
[2018-05-15 12:00] VITALS: BP 109/54
[2018-05-15 15:04] VITALS: BP 115/62
[2018-05-15 16:00] VITALS: BP 99/54
== END 2018-05-15 17:58 | disposition home or self-care (01) | DRG 140 ==
LOC: ER 15:21 → EDBEDREQ 22:17 → EDBEDREQTM 22:17 → ENRESERV 23:17 → EDBEDREQ 05-11 00:31 → 6WST 05-11 02:35
PROVIDERS: ADMIT Internal Medicine; ATTEND Internal Medicine
PROC: 5A09357 Assistance with Respiratory Ventilation, Less than 24 Consecutive Hours, Continuous Positive Airway Pressure (ICD-10-PCS; principal; 2018-05-11)
PROC: 5A09357 Assistance with Respiratory Ventilation, Less than 24 Consecutive Hours, Continuous Positive Airway Pressure (ICD-10-PCS; 2018-05-12)
PROC: 5A09357 Assistance with Respiratory Ventilation, Less than 24 Consecutive Hours, Continuous Positive Airway Pressure (ICD-10-PCS; 2018-05-13)
PROC: 5A09357 Assistance with Respiratory Ventilation, Less than 24 Consecutive Hours, Continuous Positive Airway Pressure (ICD-10-PCS; 2018-05-14)
DX: J44.1 Chronic obstructive pulmonary disease with (acute) exacerbation (principal); J96.20 Acute and chronic respiratory failure, unspecified whether with hypoxia or hypercapnia; I50.43 Acute on chronic combined systolic (congestive) and diastolic (congestive) heart failure; I27.20 Pulmonary hypertension, unspecified; E44.0 Moderate protein-calorie malnutrition; E66.01 Morbid (severe) obesity due to excess calories; E78.6 Lipoprotein deficiency; I08.1 Rheumatic disorders of both mitral and tricuspid valves; I42.0 Dilated cardiomyopathy; J68.0 Bronchitis and pneumonitis due to chemicals, gases, fumes and vapors; D64.9 Anemia, unspecified; E11.9 Type 2 diabetes mellitus without complications; E78.5 Hyperlipidemia, unspecified; E87.6 Hypokalemia; F14.10 Cocaine abuse, uncomplicated; F41.9 Anxiety disorder, unspecified; G47.33 Obstructive sleep apnea (adult) (pediatric); I11.0 Hypertensive heart disease with heart failure; L73.2 Hidradenitis suppurativa; N61.1 Abscess of the breast and nipple; Z79.82 Long term (current) use of aspirin; Z87.891 Personal history of nicotine dependence; Z68.42 Body mass index [BMI] 45.0-49.9, adult; Z95.810 Presence of automatic (implantable) cardiac defibrillator; Z99.81 Dependence on supplemental oxygen; Z88.6 Allergy status to analgesic agent; Z79.899 Other long term (current) drug therapy; Z71.3 Dietary counseling and surveillance
CPT/HCPCS: 36415; 71045; 80048; 80061; 80305; 82550; 82553; 82962; 83735; 83880; 84443; 84484; 85379; 93005; 93306; 93970; 94640; 96374; 99285; J1650; J1940; J7050; J7611; J7620; J7626

== ENCOUNTER 2018-06-25 12:47 | Inpatient (IN) | payer MEDICAID ==
[~2018-06-25] VITALS: Ht 165.1 cm; Wt 105.3 kg
[~2018-06-25 12:47] MED LIST changes: -COR3 PO
[2018-06-25 14:24] LABS: BASOPHILS % 0.9 % (0.0-2.0); EOSINOPHILS % 0.5 % (0.0-5.0); HEMATOCRIT. 35.4 % (42.0-52.0); HEMOGLOBIN. 11.3 g/dL (14.0-18.0); LYMPHOCYTES % 16.8 % (20.0-50.0); MEAN CORPUSCULAR HEMOGLOBIN 27.6 pg (28.0-32.0); MEAN CORPUSCULAR VOLUME 86.5 fL (80.0-94.0); MEAN PLATELET VOLUME 8.7 fl (7.4-10.4); MONOCYTES % 11.5 % (2.0-8.0); NEUTROPHILS % 70.3 % (40.0-76.0); PLATELET 272 x1000/uL (130-400); RED CELL DISTRIBUTION WIDTH 20.6 % (11.6-14.6)
[2018-06-25 14:26] LABS: CHLORIDE 104 mEq/L (98-107)
[2018-06-25] MEDS ORDERED: LIDOCAINE HCL/PF 1% 2ML VIAL ONE (14:26)
[2018-06-25 14:27] LABS: INR 1.1; PROTHROMBIN TIME 10.9 sec (9.6-11.0)
[2018-06-25] MEDS ORDERED: ALBUTEROL (0.083%) 2.5MG/3ML NEB HHN STA ×2 (14:29→15:30)
[2018-06-25] MEDS ORDERED: IPRATROPIUM BROMIDE (0.02%) 0.5MG/2.5ML NEB HHN STA (14:29)
[2018-06-25] MEDS ORDERED: METHYLPREDNISOLONE SOD SUCC 125 MG/2 ML VIAL IV STA (14:29)
[2018-06-25 14:53] LABS: BG BASE EXCESS -0.3 mmol/L (-2.0-2.0); BG DEOXYHEMOGLOBIN 5.4 % (0.0-5.0); BG FRACTION INSPIRED OXYGEN 28; BG METHEMOGLOBIN 0.3 % (0.0-1.5); BG OXYGEN SATURATION 94.5 % (92.0-98.5); BG OXYHEMOGLOBIN 93.3 % (94.0-97.0); BG PCO2 43.6 mmHg (35.0-45.0); BG PH 7.377 (7.350-7.450); BG PO2 81.8 mmHg (75.0-100.0); BG SAMPLE SITE RIGHT RADIAL; BG TOTAL HEMOGLOBIN 11.9 g/dL (12.0-18.0); BG VENT MODE NASAL CANNULA
[2018-06-25] MEDS ORDERED: MAGNESIUM/ALUMINUM HYDROXIDE/SIMETHICONE 30ML UDC PO PRN (16:30)
[2018-06-25] MEDS ORDERED: CLONIDINE 0.1MG TABLET PO PRN (16:30)
[2018-06-25] MEDS ORDERED: ACETAMINOPHEN 325MG TABLET PO PRN (16:30)
[2018-06-25] MEDS ORDERED: ONDANSETRON HCL 4MG/2ML INJ IV PRN (16:30)
[2018-06-25] MEDS ORDERED: GUAIFENESIN 200MG/10ML SUGAR FREE UDC PO PRN (16:30)
[2018-06-25] MEDS ORDERED: DIPHENHYDRAMINE 50MG CAPSULE PO PRN (17:00)
[2018-06-25] MEDS ORDERED: FUROSEMIDE 40MG/4ML VIAL IV SCH (17:00)
[2018-06-25 17:14] LABS: PHOSPHORUS 3.1 mg/dL (2.5-4.9)
[2018-06-25] MEDS: DIPHENHYDRAMINE 50MG/ML VIAL IV PRN (18:20)
[2018-06-25] MEDS: POTASSIUM CHLORIDE 20MEQ TABLET SR PO SCH (23:04)
[2018-06-25] MEDS: FUROSEMIDE 40MG/4ML VIAL IV SCH (23:04)
[2018-06-25 23:08] VITALS: BP 120/66
[2018-06-25] MEDS: HYDROCODONE/ACETAMINOPHEN 5/325MG TABLET PO PRN (23:59)
[2018-06-26 00:45] VITALS: BP 120/66
[2018-06-26 03:31] LABS: *AMPHETAMINES SCREEN URINE NEGATIVE (NEGATIVE); *BARBITURATES SCREEN URINE NEGATIVE (NEGATIVE); *BENZODIAZEPINES SCREEN URINE NEGATIVE (NEGATIVE); *COCAINE SCREEN URINE NEGATIVE (NEGATIVE); METHADONE URINE SCREEN NEGATIVE (NEGATIVE)
[2018-06-26 03:32] LABS: CANNABINOID URINE SCREEN NEGATIVE (NEGATIVE); OPIATES URINE SCREEN NEGATIVE (NEGATIVE); PHENCYCLIDINE URINE SCREEN NEGATIVE (NEGATIVE)
[2018-06-26] MEDS: DIPHENHYDRAMINE 50MG/ML VIAL IV PRN (04:23)
[2018-06-26 06:18] LABS: HEMATOCRIT. 33.1 % (42.0-52.0); HEMOGLOBIN. 10.8 g/dL (14.0-18.0); MEAN CORPUSCULAR HEMOGLOBIN 27.9 pg (28.0-32.0); MEAN CORPUSCULAR VOLUME 85.8 fL (80.0-94.0); MEAN PLATELET VOLUME 8.6 fl (7.4-10.4); PLATELET 262 x1000/uL (130-400); RED BLOOD CELL COUNT 3.86 mill/uL (4.7-6.1); RED CELL DISTRIBUTION WIDTH 20.4 % (11.6-14.6)
[2018-06-26 08:00] VITALS: BP 116/75
[2018-06-26 08:29] LABS: CHLORIDE 104 mEq/L (98-107)
[2018-06-26] MEDS: FUROSEMIDE 40MG/4ML VIAL IV SCH ×2 (08:48→21:07)
[2018-06-26] MEDS: POTASSIUM CHLORIDE 20MEQ TABLET SR PO SCH ×2 (08:48→17:15)
[2018-06-26] MEDS: ENOXAPARIN 40MG/0.4ML SYR SUBCUT SCH ×2 (08:49→21:07)
[2018-06-26] MEDS: HYDROCODONE/ACETAMINOPHEN 5/325MG TABLET PO PRN ×2 (08:57→17:16)
[2018-06-26 09:01] LABS: LDL CHOLESTEROL 116 mg/dL (5-100)
[2018-06-26 09:02] LABS: CREATINE KINASE 62 IU/L (39-308); CREATINE KINASE MB FRACTION < 1.0 ng/mL (0.5-3.6); HDL CHOLESTEROL 26 mg/dL (40-59)
[2018-06-26 10:19] LABS: PLATELET ESTIMATE NORMAL
[2018-06-26 12:00] VITALS: BP 104/78
[2018-06-26 16:00] VITALS: BP 108/70
[2018-06-26] MEDS: IPRATROPIUM/ALBUTEROL 0.5-3(2.5)MG/3ML NEB INH PRN (17:26)
[2018-06-26 20:00] VITALS: BP 141/47
[2018-06-27] VITALS (7 sets, daily range): BP systolic 91–124; BP diastolic 56–80
[2018-06-27] MEDS: IPRATROPIUM/ALBUTEROL 0.5-3(2.5)MG/3ML NEB HHN SCH ×4 (01:17→20:43)
[2018-06-27 06:12] LABS: BASOPHILS % 0.2 % (0.0-2.0); HEMATOCRIT. 33.6 % (42.0-52.0); HEMOGLOBIN. 10.4 g/dL (14.0-18.0); LYMPHOCYTES % 10.5 % (20.0-50.0); MEAN CORPUSCULAR HEMOGLOBIN 27.1 pg (28.0-32.0); MEAN CORPUSCULAR VOLUME 87.3 fL (80.0-94.0); MEAN PLATELET VOLUME 8.8 fl (7.4-10.4); MONOCYTES % 9.8 % (2.0-8.0); NEUTROPHILS % 79.5 % (40.0-76.0); PLATELET 247 x1000/uL (130-400); RED BLOOD CELL COUNT 3.85 mill/uL (4.7-6.1); RED CELL DISTRIBUTION WIDTH 20.6 % (11.6-14.6)
[2018-06-27 06:29] LABS: CHLORIDE 101 mEq/L (98-107)
[2018-06-27] MEDS: FUROSEMIDE 40MG/4ML VIAL IV SCH ×2 (10:03→21:35)
[2018-06-27] MEDS: POTASSIUM CHLORIDE 20MEQ TABLET SR PO SCH ×2 (10:04→16:34)
[2018-06-27] MEDS: ENOXAPARIN 40MG/0.4ML SYR SUBCUT SCH ×2 (10:04→21:36)
[2018-06-27] MEDS: DIPHENHYDRAMINE 50MG/ML VIAL IV PRN ×2 (10:09→21:35)
[2018-06-27] MEDS: DOCUSATE SODIUM 100MG CAPSULE PO PRN (16:34)
[2018-06-27] MEDS: IPRATROPIUM/ALBUTEROL 0.5-3(2.5)MG/3ML NEB INH PRN (17:07)
[2018-06-28 00:28] VITALS: BP 139/92
[2018-06-28] MEDS: IPRATROPIUM/ALBUTEROL 0.5-3(2.5)MG/3ML NEB HHN SCH ×3 (01:43→14:05)
[2018-06-28 04:00] VITALS: BP 113/75
[2018-06-28] MEDS: DOCUSATE SODIUM 100MG CAPSULE PO PRN ×2 (04:41→08:49)
[2018-06-28] MEDS: HYDROCODONE/ACETAMINOPHEN 5/325MG TABLET PO PRN (04:41)
[2018-06-28 08:00] VITALS: BP 107/67
[2018-06-28] MEDS: FUROSEMIDE 40MG/4ML VIAL IV SCH (08:49)
[2018-06-28] MEDS: POTASSIUM CHLORIDE 20MEQ TABLET SR PO SCH (08:49)
[2018-06-28] MEDS: ENOXAPARIN 40MG/0.4ML SYR SUBCUT SCH (08:49)
[2018-06-28 12:00] VITALS: BP 110/75
[2018-06-28 13:01] VITALS: BP 110/75
== END 2018-06-28 15:06 | disposition home or self-care (01) | DRG 140 ==
LOC: ER 12:47 → 8WST 16:11 → EDBEDREQ 16:17 → ENRESERV 20:36 → 7WST 06-27 09:19
PROVIDERS: ADMIT Internal Medicine; ATTEND Internal Medicine
DX: J44.1 Chronic obstructive pulmonary disease with (acute) exacerbation (principal); J96.00 Acute respiratory failure, unspecified whether with hypoxia or hypercapnia; I50.43 Acute on chronic combined systolic (congestive) and diastolic (congestive) heart failure; I27.20 Pulmonary hypertension, unspecified; J84.9 Interstitial pulmonary disease, unspecified; E66.01 Morbid (severe) obesity due to excess calories; I42.0 Dilated cardiomyopathy; Z99.81 Dependence on supplemental oxygen; G47.33 Obstructive sleep apnea (adult) (pediatric); L73.2 Hidradenitis suppurativa; I11.0 Hypertensive heart disease with heart failure; E78.00 Pure hypercholesterolemia, unspecified; E78.5 Hyperlipidemia, unspecified; F41.9 Anxiety disorder, unspecified; Z87.891 Personal history of nicotine dependence; Z68.38 Body mass index [BMI] 38.0-38.9, adult; Z88.6 Allergy status to analgesic agent; Z79.82 Long term (current) use of aspirin; Z79.899 Other long term (current) drug therapy
CPT/HCPCS: 36415; 36600; 71045; 80048; 80061; 80305; 82375; 82550; 82553; 82805; 83036; 83735; 83880; 84100; 84443; 84484; 85379; 93005; 93970; 94640; 96374; 97162; 97166; 99285; A6261; J1200; J1650; J1940; J2930; J3490; J7611; J7620; Q0163

== ENCOUNTER 2018-07-29 09:13 | Inpatient (IN) | payer MEDICAID ==
[~2018-07-29] VITALS: Ht 165.1 cm; Wt 140.6 kg
[2018-07-29 09:42] LABS: BASOPHILS % 0.8 % (0.0-2.0); EOSINOPHILS % 0.8 % (0.0-5.0); HEMATOCRIT. 33.6 % (42.0-52.0); HEMOGLOBIN. 10.7 g/dL (14.0-18.0); LYMPHOCYTES % 12.7 % (20.0-50.0); MEAN CORPUSCULAR HEMOGLOBIN 28.6 pg (28.0-32.0); MEAN CORPUSCULAR VOLUME 89.8 fL (80.0-94.0); MEAN PLATELET VOLUME 7.6 fl (7.4-10.4); MONOCYTES % 9.5 % (2.0-8.0); NEUTROPHILS % 76.2 % (40.0-76.0); PLATELET 291 x1000/uL (130-400); RED BLOOD CELL COUNT 3.74 mill/uL (4.7-6.1); RED CELL DISTRIBUTION WIDTH 20.9 % (11.6-14.6)
[2018-07-29] MEDS ORDERED: FUROSEMIDE 40MG/4ML VIAL IV ONE (09:45)
[2018-07-29] MEDS ORDERED: ASPIRIN 81MG TABLET PO ONE (09:45)
[2018-07-29 09:48] LABS: CHLORIDE 105 mEq/L (98-107)
[2018-07-29 12:00] VITALS: BP 100/82
[2018-07-29] MEDS ORDERED: ACETAMINOPHEN 325MG TABLET PO PRN (13:30)
[2018-07-29] MEDS ORDERED: DOXY100C2 PO (13:30)
[2018-07-29] MEDS ORDERED: ONDANSETRON HCL 4MG/2ML INJ IV PRN (13:30)
[2018-07-29] MEDS ORDERED: CARV3.1242 MT (13:30)
[2018-07-29] MEDS ORDERED: HYDROCODONE/ACETAMINOPHEN 10/325MG TABLET PO PRN (13:30)
[2018-07-29] MEDS ORDERED: BECL10.6 IH (13:31)
[2018-07-29] MEDS: FUROSEMIDE 40MG/4ML VIAL IVP SCH ×2 (14:09→19:56)
[2018-07-29] MEDS: ENOXAPARIN 30MG/0.3ML SYR SUBCUT SCH ×2 (14:10→22:10)
[2018-07-29 15:22] LABS: METHADONE URINE SCREEN NEGATIVE (NEGATIVE); OPIATES URINE SCREEN NEGATIVE (NEGATIVE)
[2018-07-29 15:23] LABS: *AMPHETAMINES SCREEN URINE NEGATIVE (NEGATIVE); *BARBITURATES SCREEN URINE NEGATIVE (NEGATIVE); *BENZODIAZEPINES SCREEN URINE NEGATIVE (NEGATIVE); *COCAINE SCREEN URINE NEGATIVE (NEGATIVE); CANNABINOID URINE SCREEN NEGATIVE (NEGATIVE); PHENCYCLIDINE URINE SCREEN NEGATIVE (NEGATIVE)
[2018-07-29 16:22] VITALS: BP 100/71
[2018-07-29] MEDS: BUDESONIDE 0.5MG/2ML NEB HHN SCH ×2 (16:25→20:37)
[2018-07-29] MEDS: IPRATROPIUM/ALBUTEROL 0.5-3(2.5)MG/3ML NEB HHN PRN ×2 (16:26→20:42)
[2018-07-29] MEDS ORDERED: METHYLPREDNISOLONE SOD SUCC 40 MG/ML VIAL IV NR (16:30)
[2018-07-29] MEDS ORDERED: DOXYCYCLINE HYCLATE 100 MG PO SCH (17:00)
[2018-07-29] MEDS: DOXYCYCLINE HYCLATE 100MG CAPSULE PO SCH (17:26)
[2018-07-29 18:00] VITALS: BP 117/80
[2018-07-29] MEDS ORDERED: AZITHROMYCIN 500 MG TABLET PO SCH (18:45)
[2018-07-29] MEDS: AZITHROMYCIN 500 MG TABLET PO SCH (19:56)
[2018-07-29 20:00] VITALS: BP 105/79
[2018-07-29] MEDS: CARVEDILOL 12.5MG TABLET PO SCH (20:04)
[2018-07-29] MEDS ORDERED: TOLNAFTATE 1% CREAM 15GM TOP SCH (21:00)
[2018-07-29] MEDS: ZOLPIDEM TARTRATE 5MG TABLET PO PRN (22:10)
[2018-07-29] MEDS: LACTULOSE 20G/30ML UDC PO PRN (22:18)
[2018-07-30] VITALS: BP 106/69
[2018-07-30 04:00] VITALS: BP 114/70
[2018-07-30 07:18] LABS: CHLORIDE 102 mEq/L (98-107)
[2018-07-30 07:23] LABS: HEMATOCRIT. 33.6 % (42.0-52.0); HEMOGLOBIN. 10.7 g/dL (14.0-18.0); LYMPHOCYTES % 7.5 % (20.0-50.0); MEAN CORPUSCULAR HEMOGLOBIN 28.2 pg (28.0-32.0); MEAN CORPUSCULAR VOLUME 88.8 fL (80.0-94.0); MEAN PLATELET VOLUME 8.3 fl (7.4-10.4); MONOCYTES % 6.1 % (2.0-8.0); NEUTROPHILS % 86.4 % (40.0-76.0); PLATELET 267 x1000/uL (130-400); RED BLOOD CELL COUNT 3.78 mill/uL (4.7-6.1)
[2018-07-30 08:00] VITALS: BP 100/75
[2018-07-30] MEDS: BUDESONIDE 0.5MG/2ML NEB HHN SCH ×2 (08:21→20:54)
[2018-07-30] MEDS: CARVEDILOL 12.5MG TABLET PO SCH (08:46)
[2018-07-30] MEDS: NYSTATIN POWDER 15GM TOP SCH ×3 (08:59→17:34)
[2018-07-30] MEDS: FUROSEMIDE 40MG/4ML VIAL IVP SCH ×3 (08:59→21:10)
[2018-07-30] MEDS: ENOXAPARIN 30MG/0.3ML SYR SUBCUT SCH (08:59)
[2018-07-30] MEDS: ASPIRIN 81MG TABLET PO SCH (09:00)
[2018-07-30] MEDS: AZITHROMYCIN 500 MG TABLET PO SCH (09:00)
[2018-07-30] MEDS: DOXYCYCLINE HYCLATE 100MG CAPSULE PO SCH ×2 (09:00→17:33)
[2018-07-30 12:00] VITALS: BP 163/57
[2018-07-30 16:00] VITALS: BP 104/59
[2018-07-30] MEDS: NICOTINE 14MG PATCH TD SCH (17:34)
[2018-07-30] MEDS: LACTULOSE 20G/30ML UDC PO PRN (17:45)
[2018-07-30] MEDS ORDERED: ATOR40TA70 MT (19:48)
[2018-07-30 20:00] VITALS: BP 125/65
[2018-07-30] MEDS: CARVEDILOL 6.25 MG TABLET PO SCH (21:09)
[2018-07-30] MEDS: ENOXAPARIN 40MG/0.4ML SYR SUBCUT SCH (21:09)
[2018-07-30] MEDS: ZOLPIDEM TARTRATE 5MG TABLET PO PRN (21:10)
[2018-07-31 00:12] VITALS: BP 114/69
[2018-07-31] MEDS: IPRATROPIUM/ALBUTEROL 0.5-3(2.5)MG/3ML NEB HHN PRN ×2 (03:59→07:48)
[2018-07-31 04:00] VITALS: BP 110/80
[2018-07-31] MEDS: FUROSEMIDE 40MG/4ML VIAL IVP SCH (06:40)
[2018-07-31] MEDS: BUDESONIDE 0.5MG/2ML NEB HHN SCH (07:47)
[2018-07-31 08:00] VITALS: BP 111/59
[2018-07-31] MEDS: ASPIRIN 81MG TABLET PO SCH (09:06)
[2018-07-31] MEDS: CARVEDILOL 6.25 MG TABLET PO SCH (09:06)
[2018-07-31] MEDS: DOXYCYCLINE HYCLATE 100MG CAPSULE PO SCH (09:06)
[2018-07-31] MEDS: NICOTINE 14MG PATCH TD SCH (09:07)
[2018-07-31] MEDS: ENOXAPARIN 40MG/0.4ML SYR SUBCUT SCH (09:07)
[2018-07-31] MEDS: AZITHROMYCIN 500 MG TABLET PO SCH (09:07)
[2018-07-31] MEDS: NYSTATIN POWDER 15GM TOP SCH ×2 (09:08→13:00)
[2018-07-31 11:27] LABS: CHLORIDE 104 mEq/L (98-107)
[2018-07-31 11:28] LABS: BASOPHILS % 0.5 % (0.0-2.0); EOSINOPHILS % 0.1 % (0.0-5.0); HEMATOCRIT. 34.6 % (42.0-52.0); HEMOGLOBIN. 10.9 g/dL (14.0-18.0); LYMPHOCYTES % 7.5 % (20.0-50.0); MEAN CORPUSCULAR HEMOGLOBIN 28.5 pg (28.0-32.0); MEAN CORPUSCULAR VOLUME 90.1 fL (80.0-94.0); MEAN PLATELET VOLUME 8.1 fl (7.4-10.4); MONOCYTES % 9.5 % (2.0-8.0); NEUTROPHILS % 82.4 % (40.0-76.0); PLATELET 289 x1000/uL (130-400); RED BLOOD CELL COUNT 3.84 mill/uL (4.7-6.1); RED CELL DISTRIBUTION WIDTH 21.3 % (11.6-14.6)
[2018-07-31 11:37] LABS: PHOSPHORUS 3.1 mg/dL (2.5-4.9)
[2018-07-31 12:00] VITALS: BP 108/64
[2018-07-31] MEDS ORDERED: ZOLP5TAB2 PO (12:08)
[2018-07-31] MEDS ORDERED: FUROSEMIDE 40MG TABLET PO SCH (21:00)
== END 2018-07-31 16:38 | disposition home or self-care (01) | DRG 133 ==
LOC: ER 09:25 → 7WST 11:14 → EDBEDREQ 11:18 → ENRESERV 11:42
PROVIDERS: ADMIT Internal Medicine; ATTEND Internal Medicine
DX: J96.20 Acute and chronic respiratory failure, unspecified whether with hypoxia or hypercapnia (principal); I50.43 Acute on chronic combined systolic (congestive) and diastolic (congestive) heart failure; I42.0 Dilated cardiomyopathy; Z99.81 Dependence on supplemental oxygen; E44.0 Moderate protein-calorie malnutrition; E66.01 Morbid (severe) obesity due to excess calories; Z68.43 Body mass index [BMI] 50.0-59.9, adult; I11.0 Hypertensive heart disease with heart failure; D64.9 Anemia, unspecified; G47.33 Obstructive sleep apnea (adult) (pediatric); E11.9 Type 2 diabetes mellitus without complications; I45.9 Conduction disorder, unspecified; J44.9 Chronic obstructive pulmonary disease, unspecified; E78.5 Hyperlipidemia, unspecified; F17.210 Nicotine dependence, cigarettes, uncomplicated; F51.04 Psychophysiologic insomnia; K59.00 Constipation, unspecified; Z79.899 Other long term (current) drug therapy; Z91.19 Patient's noncompliance with other medical treatment and regimen; Z88.9 Allergy status to unspecified drugs, medicaments and biological substances; Z71.3 Dietary counseling and surveillance; Z71.6 Tobacco abuse counseling; Z79.4 Long term (current) use of insulin
CPT/HCPCS: 36415; 71045; 74018; 80048; 80305; 83735; 83880; 84100; 84484; 93005; 94640; 96374; 96375; 99291; J1650; J1940; J2920; J7620; J7626

== ENCOUNTER 2018-08-09 16:43 | Inpatient (IN) | payer MEDICAID ==
[~2018-08-09] VITALS: Ht 165.1 cm; Wt 148.3 kg
[~2018-08-09 16:43] MED LIST changes: -ATOR10TA PO; +ATOR40TA70 MT; +BECL10.6 IH; -BENZ100C86 PO; -BISA-81 PO; +CARV3.1242 MT; +DOXY100C2 PO; -MONT10TA21 PO; +ZOLP5TAB2 PO
[2018-08-09 18:00] LABS: BASOPHILS % 0.6 % (0.0-2.0); EOSINOPHILS % 0.4 % (0.0-5.0); HEMATOCRIT. 32.8 % (42.0-52.0); HEMOGLOBIN. 10.3 g/dL (14.0-18.0); LYMPHOCYTES % 13.6 % (20.0-50.0); MEAN CORPUSCULAR HEMOGLOBIN 28.3 pg (28.0-32.0); MEAN PLATELET VOLUME 7.6 fl (7.4-10.4); MONOCYTES % 12.5 % (2.0-8.0); NEUTROPHILS % 72.9 % (40.0-76.0); PLATELET 254 x1000/uL (130-400); RED BLOOD CELL COUNT 3.64 mill/uL (4.7-6.1); RED CELL DISTRIBUTION WIDTH 21.2 % (11.6-14.6)
[2018-08-09 18:03] LABS: CHLORIDE 103 mEq/L (98-107)
[2018-08-09 18:07] LABS: INR 1.1; PARTIAL THROMBOPLASTIN TIME 28.1 sec (23.4-31.0); PROTHROMBIN TIME 11.6 sec (9.6-11.0)
[2018-08-09] MEDS ORDERED: IPRATROPIUM/ALBUTEROL 0.5-3(2.5)MG/3ML NEB HHN ONE (19:45)
[2018-08-09] MEDS ORDERED: FUROSEMIDE 40MG/4ML VIAL IVP ONE (19:45)
[2018-08-10] VITALS (8 sets, daily range): BP systolic 100–149; BP diastolic 59–77
[2018-08-10] MEDS ORDERED: MAGNESIUM/ALUMINUM HYDROXIDE/SIMETHICONE 30ML UDC PO PRN (00:15)
[2018-08-10] MEDS ORDERED: ACETAMINOPHEN 325MG TABLET PO PRN (00:15)
[2018-08-10] MEDS ORDERED: ONDANSETRON HCL 4MG/2ML INJ IV PRN (00:15)
[2018-08-10] MEDS ORDERED: CLONIDINE 0.1MG TABLET PO PRN (00:15)
[2018-08-10] MEDS: FUROSEMIDE 40MG/4ML VIAL IV SCH ×2 (05:01→18:05)
[2018-08-10] MEDS: METHYLPREDNISOLONE SOD SUCC 40 MG/ML VIAL IV SCH ×3 (05:01→21:29)
[2018-08-10 05:53] LABS: CHLORIDE 102 mEq/L (98-107)
[2018-08-10 06:07] LABS: CREATINE KINASE 59 IU/L (39-308)
[2018-08-10 06:10] LABS: CREATINE KINASE MB FRACTION < 1.0 ng/mL (0.5-3.6)
[2018-08-10] MEDS: ENOXAPARIN 40MG/0.4ML SYR SUBCUT SCH ×2 (10:00→21:29)
[2018-08-10] MEDS ORDERED: NON FORMULARY PATIENT HOME MED XX SCH (11:15)
[2018-08-10] MEDS: CARVEDILOL 12.5MG TABLET PO SCH ×2 (11:15→21:00)
[2018-08-10] MEDS: AMLODIPINE 2.5MG TABLET PO SCH ×2 (11:15→21:00)
[2018-08-10] MEDS: POTASSIUM CHLORIDE 20MEQ TABLET SR PO SCH ×2 (11:57→18:06)
[2018-08-10] MEDS: SACUBITRIL/VALSARTAN 24/26 TAB PO SCH ×2 (13:47→21:00)
[2018-08-10 16:01] LABS: CREATINE KINASE 61 IU/L (39-308)
[2018-08-10 16:02] LABS: CREATINE KINASE MB FRACTION < 1.0 ng/mL (0.5-3.6)
[2018-08-10] MEDS: LEVOFLOXACIN 750MG PREMIX 150 ML IV SCH (18:06)
[2018-08-10] MEDS: DOCUSATE SODIUM 100MG CAPSULE PO PRN (21:28)
[2018-08-10] MEDS: HYDROCODONE/ACETAMINOPHEN 5/325MG TABLET PO PRN (21:29)
[2018-08-11] MEDS: IPRATROPIUM/ALBUTEROL 0.5-3(2.5)MG/3ML NEB INH PRN ×3 (01:27→21:34)
[2018-08-11] MEDS: BUDESONIDE 0.5MG/2ML NEB HHN SCH ×3 (01:35→21:34)
[2018-08-11] MEDS: HYDROCODONE/ACETAMINOPHEN 5/325MG TABLET PO PRN ×2 (04:59→17:29)
[2018-08-11] MEDS: METHYLPREDNISOLONE SOD SUCC 40 MG/ML VIAL IV SCH ×3 (06:36→20:34)
[2018-08-11] MEDS: FUROSEMIDE 40MG/4ML VIAL IV SCH ×2 (06:36→17:15)
[2018-08-11 08:00] VITALS: BP 90/45
[2018-08-11 08:35] LABS: HEMATOCRIT. 35.7 % (42.0-52.0); HEMOGLOBIN. 11.1 g/dL (14.0-18.0); MEAN CORPUSCULAR HEMOGLOBIN 28.5 pg (28.0-32.0); MEAN CORPUSCULAR VOLUME 91.2 fL (80.0-94.0); RED BLOOD CELL COUNT 3.91 mill/uL (4.7-6.1); RED CELL DISTRIBUTION WIDTH 21.1 % (11.6-14.6)
[2018-08-11 08:46] LABS: CHLORIDE 100 mEq/L (98-107)
[2018-08-11 08:54] LABS: HDL CHOLESTEROL 28 mg/dL (40-59); LDL CHOLESTEROL 92 mg/dL (5-100)
[2018-08-11] MEDS: CARVEDILOL 12.5MG TABLET PO SCH ×2 (09:00→20:32)
[2018-08-11] MEDS: AMLODIPINE 2.5MG TABLET PO SCH ×2 (09:00→20:33)
[2018-08-11] MEDS: SACUBITRIL/VALSARTAN 24/26 TAB PO SCH ×2 (09:08→20:33)
[2018-08-11] MEDS: ENOXAPARIN 40MG/0.4ML SYR SUBCUT SCH ×2 (09:09→20:34)
[2018-08-11] MEDS: POTASSIUM CHLORIDE 20MEQ TABLET SR PO SCH ×2 (09:09→17:14)
[2018-08-11 10:35] LABS: MEAN PLATELET VOLUME 8.8 fl (7.4-10.4); PLATELET 167 x1000/uL (130-400); PLATELET ESTIMATE NORMAL
[2018-08-11 13:00] VITALS: BP 92/57
[2018-08-11 16:00] VITALS: BP 101/66
[2018-08-11] MEDS: METFORMIN HCL 500MG TABLET PO SCH (17:14)
[2018-08-11] MEDS: LEVOFLOXACIN 750MG PREMIX 150 ML IV SCH (17:15)
[2018-08-11] MEDS: NYSTATIN POWDER 15GM TOP SCH (17:15)
[2018-08-11 19:10] LABS: *COCAINE SCREEN URINE NEGATIVE (NEGATIVE); METHADONE URINE SCREEN NEGATIVE (NEGATIVE); OPIATES URINE SCREEN PRESUMTIVE POSITIVE (NEGATIVE)
[2018-08-11 19:11] LABS: *AMPHETAMINES SCREEN URINE NEGATIVE (NEGATIVE); *BARBITURATES SCREEN URINE NEGATIVE (NEGATIVE); *BENZODIAZEPINES SCREEN URINE NEGATIVE (NEGATIVE); CANNABINOID URINE SCREEN NEGATIVE (NEGATIVE); PHENCYCLIDINE URINE SCREEN NEGATIVE (NEGATIVE)
[2018-08-11 20:07] VITALS: BP 109/73
[2018-08-11 21:10] LABS: CLARITY URINE CLEAR (CLEAR); COLOR URINE YELLOW (YELLOW); KETONES URINE NEGATIVE (NEGATIVE); LEUKOCYTE ESTERASE URINE NEGATIVE (NEGATIVE); NITRITE URINE NEGATIVE (NEGATIVE); OCCULT BLOOD URINE NEGATIVE (NEGATIVE); PROTEIN URINE NEGATIVE (NEGATIVE); SPECIFIC GRAVITY URINE 1.024 (1.005-1.030)
[2018-08-12] VITALS: BP 100/60
[2018-08-12] MEDS: IPRATROPIUM/ALBUTEROL 0.5-3(2.5)MG/3ML NEB INH PRN ×3 (01:00→21:36)
[2018-08-12] MEDS: HYDROCODONE/ACETAMINOPHEN 5/325MG TABLET PO PRN ×2 (01:17→15:38)
[2018-08-12 04:00] VITALS: BP 114/75
[2018-08-12] MEDS: METFORMIN HCL 500MG TABLET PO SCH ×2 (05:58→17:31)
[2018-08-12] MEDS: METHYLPREDNISOLONE SOD SUCC 40 MG/ML VIAL IV SCH ×3 (05:58→21:16)
[2018-08-12] MEDS: FUROSEMIDE 40MG/4ML VIAL IV SCH ×2 (05:58→17:31)
[2018-08-12 06:47] LABS: HEMATOCRIT. 33.4 % (42.0-52.0); HEMOGLOBIN. 10.4 g/dL (14.0-18.0); MEAN CORPUSCULAR HEMOGLOBIN 28.3 pg (28.0-32.0); MEAN CORPUSCULAR VOLUME 90.6 fL (80.0-94.0); MEAN PLATELET VOLUME 8.2 fl (7.4-10.4); PLATELET 269 x1000/uL (130-400); RED BLOOD CELL COUNT 3.69 mill/uL (4.7-6.1); RED CELL DISTRIBUTION WIDTH 20.9 % (11.6-14.6)
[2018-08-12 07:03] LABS: CHLORIDE 102 mEq/L (98-107)
[2018-08-12 08:00] VITALS: BP 103/56
[2018-08-12] MEDS: BUDESONIDE 0.5MG/2ML NEB HHN SCH ×2 (08:41→21:29)
[2018-08-12] MEDS: AMLODIPINE 2.5MG TABLET PO SCH ×2 (09:00→21:14)
[2018-08-12] MEDS: CARVEDILOL 12.5MG TABLET PO SCH ×2 (09:00→21:15)
[2018-08-12] MEDS: ENOXAPARIN 40MG/0.4ML SYR SUBCUT SCH ×2 (09:21→21:16)
[2018-08-12] MEDS: NYSTATIN POWDER 15GM TOP SCH ×3 (09:22→17:35)
[2018-08-12] MEDS: SACUBITRIL/VALSARTAN 24/26 TAB PO SCH ×2 (09:22→21:14)
[2018-08-12] MEDS: POTASSIUM CHLORIDE 20MEQ TABLET SR PO SCH ×2 (09:22→17:31)
[2018-08-12] MEDS: DOCUSATE SODIUM 100MG CAPSULE PO PRN (09:31)
[2018-08-12 12:09] VITALS: BP 97/62
[2018-08-12 13:39] LABS: PLATELET ESTIMATE NORMAL
[2018-08-12 15:30] VITALS: BP 122/75
[2018-08-12] MEDS: LEVOFLOXACIN 750MG PREMIX 150 ML IV SCH (17:31)
[2018-08-12 20:00] VITALS: BP 118/75
[2018-08-13] VITALS: BP 95/62
[2018-08-13] MEDS: HYDROCODONE/ACETAMINOPHEN 5/325MG TABLET PO PRN ×2 (01:49→05:47)
[2018-08-13 04:00] VITALS: BP 104/78
[2018-08-13] MEDS: METHYLPREDNISOLONE SOD SUCC 40 MG/ML VIAL IV SCH ×2 (05:47→14:27)
[2018-08-13] MEDS: FUROSEMIDE 40MG/4ML VIAL IV SCH (05:47)
[2018-08-13 06:15] LABS: HEMATOCRIT. 35.5 % (42.0-52.0); HEMOGLOBIN. 11.3 g/dL (14.0-18.0); MEAN CORPUSCULAR HEMOGLOBIN 28.8 pg (28.0-32.0); MEAN CORPUSCULAR VOLUME 90.6 fL (80.0-94.0); MEAN PLATELET VOLUME 8.4 fl (7.4-10.4); PLATELET 283 x1000/uL (130-400); RED BLOOD CELL COUNT 3.92 mill/uL (4.7-6.1)
[2018-08-13 06:23] LABS: CHLORIDE 99 mEq/L (98-107)
[2018-08-13] MEDS: METFORMIN HCL 500MG TABLET PO SCH (06:24)
[2018-08-13] MEDS: BUDESONIDE 0.5MG/2ML NEB HHN SCH (08:18)
[2018-08-13] MEDS: IPRATROPIUM/ALBUTEROL 0.5-3(2.5)MG/3ML NEB INH PRN (08:18)
[2018-08-13] MEDS: AMLODIPINE 2.5MG TABLET PO SCH (09:00)
[2018-08-13] MEDS: CARVEDILOL 12.5MG TABLET PO SCH (09:00)
[2018-08-13] MEDS: ENOXAPARIN 40MG/0.4ML SYR SUBCUT SCH (09:58)
[2018-08-13] MEDS: POTASSIUM CHLORIDE 20MEQ TABLET SR PO SCH (10:03)
[2018-08-13] MEDS: NYSTATIN POWDER 15GM TOP SCH ×2 (10:10→14:28)
[2018-08-13] MEDS: SACUBITRIL/VALSARTAN 24/26 TAB PO SCH (10:10)
[2018-08-13 17:01] VITALS: BP 120/67
[2018-08-13] MEDS ORDERED: FUROSEMIDE 40MG TABLET PO SCH (17:15)
[2018-08-13 17:31] LABS: PLATELET ESTIMATE NORMAL
== END 2018-08-13 17:59 | disposition home or self-care (01) | DRG 194 ==
LOC: ER 16:43 → 5WST 21:10 → EDBEDREQTM 21:14 → EDBEDREQ 21:14 → ENRESERV 23:39
PROVIDERS: ADMIT Internal Medicine; ATTEND Internal Medicine
DX: I11.0 Hypertensive heart disease with heart failure (principal); J96.10 Chronic respiratory failure, unspecified whether with hypoxia or hypercapnia; J18.9 Pneumonia, unspecified organism; I27.20 Pulmonary hypertension, unspecified; E44.0 Moderate protein-calorie malnutrition; I50.23 Acute on chronic systolic (congestive) heart failure; J44.1 Chronic obstructive pulmonary disease with (acute) exacerbation; E66.01 Morbid (severe) obesity due to excess calories; E11.9 Type 2 diabetes mellitus without complications; D64.9 Anemia, unspecified; E78.5 Hyperlipidemia, unspecified; I42.0 Dilated cardiomyopathy; Z88.6 Allergy status to analgesic agent; Z79.1 Long term (current) use of non-steroidal anti-inflammatories (NSAID); Z79.899 Other long term (current) drug therapy; Z79.82 Long term (current) use of aspirin; S20.101A Unspecified superficial injuries of breast, right breast, initial encounter; X58.XXXA Exposure to other specified factors, initial encounter; Y93.89 Activity, other specified; Y92.89 Other specified places as the place of occurrence of the external cause; Y99.8 Other external cause status; Z71.3 Dietary counseling and surveillance; F17.200 Nicotine dependence, unspecified, uncomplicated; I45.9 Conduction disorder, unspecified; Z91.19 Patient's noncompliance with other medical treatment and regimen
CPT/HCPCS: 36415; 71045; 80048; 80061; 80305; 82550; 82553; 83735; 83880; 84145; 84443; 84484; 85379; 93005; 93970; 94640; 96374; 99285; C1893; J1650; J1940; J1956; J2920; J7050; J7620; J7626

== ENCOUNTER 2018-08-23 18:11 | Emergency (ER) | payer MEDICAID ==
[~2018-08-23] VITALS: Ht 165.1 cm; Wt 155.0 kg
[~2018-08-23 18:11] MED LIST changes: -DOXY100C2 PO
[2018-08-23 19:14] LABS: BASOPHILS % 0.8 % (0.0-2.0); EOSINOPHILS % 0.2 % (0.0-5.0); HEMATOCRIT. 32.2 % (42.0-52.0); HEMOGLOBIN. 10.3 g/dL (14.0-18.0); LYMPHOCYTES % 15.2 % (20.0-50.0); MEAN CORPUSCULAR HEMOGLOBIN 28.4 pg (28.0-32.0); MEAN PLATELET VOLUME 7.6 fl (7.4-10.4); MONOCYTES % 12.3 % (2.0-8.0); NEUTROPHILS % 71.5 % (40.0-76.0); PLATELET 242 x1000/uL (130-400); RED BLOOD CELL COUNT 3.62 mill/uL (4.7-6.1); RED CELL DISTRIBUTION WIDTH 19.3 % (11.6-14.6)
[2018-08-23 19:18] LABS: CHLORIDE 102 mEq/L (98-107)
[2018-08-23 19:22] LABS: ETHANOL BLOOD < 10 mg/dL
[2018-08-23 19:58] LABS: *BARBITURATES SCREEN URINE NEGATIVE (NEGATIVE)
[2018-08-23 19:59] LABS: *AMPHETAMINES SCREEN URINE NEGATIVE (NEGATIVE); *BENZODIAZEPINES SCREEN URINE NEGATIVE (NEGATIVE); *COCAINE SCREEN URINE NEGATIVE (NEGATIVE); CANNABINOID URINE SCREEN NEGATIVE (NEGATIVE); METHADONE URINE SCREEN NEGATIVE (NEGATIVE); OPIATES URINE SCREEN NEGATIVE (NEGATIVE); PHENCYCLIDINE URINE SCREEN NEGATIVE (NEGATIVE)
[2018-08-23] MEDS ORDERED: FUROSEMIDE 100MG/10ML VIAL IVP ONE (20:45)
[2018-08-23 22:02] VITALS: BP 130/73
[2018-08-23] MEDS ORDERED: FUROSEMIDE 40MG/4ML VIAL IVP ONE (22:45)
== END 2018-08-23 23:55 | disposition home or self-care (01) ==
LOC: ER 18:11
DX: I50.33 Acute on chronic diastolic (congestive) heart failure (principal); J45.909 Unspecified asthma, uncomplicated; Z88.6 Allergy status to analgesic agent; Z79.82 Long term (current) use of aspirin
CPT/HCPCS: 36415; 71045; 80053; 80305; 80320; 83880; 84484; 85025; 93005; 96374; 96375; 99284; J1940; G0480

== ENCOUNTER 2018-11-20 17:08 | Inpatient (IN) | payer MEDICAID ==
[~2018-11-20] VITALS: Ht 165.1 cm; Wt 152.0 kg
[2018-11-20] MEDS ORDERED: SODIUM CHLORIDE 0.9% 1000ML BAG (SEPSIS BOLUS) IV ONE (17:45)
[2018-11-20 18:34] LABS: BASOPHILS % 0.6 % (0.0-2.0); EOSINOPHILS % 0.1 % (0.0-5.0); HEMATOCRIT. 31.6 % (42.0-52.0); HEMOGLOBIN. 10.2 g/dL (14.0-18.0); LYMPHOCYTES % 10.3 % (20.0-50.0); MEAN CORPUSCULAR HEMOGLOBIN 28.9 pg (28.0-32.0); MEAN CORPUSCULAR VOLUME 89.2 fL (80.0-94.0); MEAN PLATELET VOLUME 8.1 fl (7.4-10.4); PLATELET 246 x1000/uL (130-400); RED BLOOD CELL COUNT 3.54 mill/uL (4.7-6.1); RED CELL DISTRIBUTION WIDTH 19.6 % (11.6-14.6)
[2018-11-20 18:35] LABS: CHLORIDE 104 mEq/L (98-107)
[2018-11-20 18:36] LABS: INR 1.2
[2018-11-20 19:04] LABS: CLARITY URINE CLEAR (CLEAR); COLOR URINE DARK YELLOW (YELLOW); KETONES URINE TRACE (NEGATIVE); LEUKOCYTE ESTERASE URINE TRACE (NEGATIVE); NITRITE URINE NEGATIVE (NEGATIVE); OCCULT BLOOD URINE 1+ (NEGATIVE); PH URINE 5.5 (4.5-8.0); PROTEIN URINE 1+ (NEGATIVE); SPECIFIC GRAVITY URINE 1.021 (1.005-1.030)
[2018-11-20] MEDS ORDERED: BUMETANIDE 1MG/4ML VIAL IV ONE (19:45)
[2018-11-20] MEDS ORDERED: FAMOTIDINE 20MG TABLET PO ONE (22:15)
[2018-11-20] MEDS ORDERED: HYDROCODONE/ACETAMINOPHEN 5/325MG TABLET PO ONE (22:15)
[2018-11-20] MEDS ORDERED: NITROGLYCERIN 0.4MG TABLET SL SL ONE (22:15)
[2018-11-20] MEDS ORDERED: IPRATROPIUM/ALBUTEROL 0.5-3(2.5)MG/3ML NEB HHN PRN (23:15)
[2018-11-21] VITALS (7 sets, daily range): BP systolic 95–118; BP diastolic 47–81
[2018-11-21] MEDS: IPRATROPIUM/ALBUTEROL 0.5-3(2.5)MG/3ML NEB HHN SCH ×5 (04:29→20:47)
[2018-11-21] MEDS: HYDROCODONE/ACETAMINOPHEN 5/325MG TABLET PO PRN ×2 (07:16→12:19)
[2018-11-21] MEDS: CARVEDILOL 3.125 MG TABLET PO SCH ×2 (08:38→21:00)
[2018-11-21] MEDS ORDERED: FUROSEMIDE 40MG/4ML VIAL IVP SCH (09:00)
[2018-11-21] MEDS: BUDESONIDE 0.5MG/2ML NEB HHN SCH ×2 (09:44→20:47)
[2018-11-21] MEDS ORDERED: POTASSIUM CHLORIDE 20MEQ TABLET SR PO NR (12:30)
[2018-11-21] MEDS: BUMETANIDE 1MG/4ML VIAL IV SCH ×2 (12:51→18:06)
[2018-11-21] MEDS ORDERED: MEDICATION NOT ON FORMULARY EA (Sacubitril/Valsartan (Entresto 24 mg-26 mg Tablet) 1 TAB PO SCH (17:00)
[2018-11-21] MEDS: SACUBITRIL/VALSARTAN 24/26 TAB PO SCH (18:06)
[2018-11-21] MEDS: ENOXAPARIN 40MG/0.4ML SYR SUBCUT SCH (21:48)
[2018-11-22] VITALS (7 sets, daily range): BP systolic 88–155; BP diastolic 55–85
[2018-11-22] MEDS: IPRATROPIUM/ALBUTEROL 0.5-3(2.5)MG/3ML NEB HHN SCH ×6 (00:24→21:07)
[2018-11-22] MEDS: BUMETANIDE 1MG/4ML VIAL IV SCH (06:22)
[2018-11-22 07:03] LABS: CHLORIDE 101 mEq/L (98-107)
[2018-11-22] MEDS: BUDESONIDE 0.5MG/2ML NEB HHN SCH ×2 (08:11→21:07)
[2018-11-22] MEDS: CARVEDILOL 3.125 MG TABLET PO SCH ×2 (08:38→20:27)
[2018-11-22] MEDS: SACUBITRIL/VALSARTAN 24/26 TAB PO SCH ×2 (08:46→18:04)
[2018-11-22] MEDS: HYDROCODONE/ACETAMINOPHEN 5/325MG TABLET PO PRN ×2 (08:47→20:38)
[2018-11-22] MEDS: ENOXAPARIN 40MG/0.4ML SYR SUBCUT SCH ×2 (08:48→20:27)
[2018-11-22] MEDS: POTASSIUM CHLORIDE 20MEQ TABLET SR PO SCH (08:48)
[2018-11-22] MEDS ORDERED: POTASSIUM CHLORIDE 20MEQ TABLET SR PO NR (11:15)
[2018-11-22] MEDS: FUROSEMIDE 40MG/4ML VIAL IVP SCH ×2 (12:00→18:04)
[2018-11-22 18:21] LABS: *AMPHETAMINES SCREEN URINE NEGATIVE (NEGATIVE)
[2018-11-22 18:22] LABS: *BARBITURATES SCREEN URINE NEGATIVE (NEGATIVE); *BENZODIAZEPINES SCREEN URINE NEGATIVE (NEGATIVE); *COCAINE SCREEN URINE NEGATIVE (NEGATIVE); METHADONE URINE SCREEN NEGATIVE (NEGATIVE); OPIATES URINE SCREEN PRESUMTIVE POSITIVE (NEGATIVE)
[2018-11-22 18:23] LABS: CANNABINOID URINE SCREEN NEGATIVE (NEGATIVE); PHENCYCLIDINE URINE SCREEN NEGATIVE (NEGATIVE)
[2018-11-23] VITALS (7 sets, daily range): BP systolic 91–112; BP diastolic 59–79
[2018-11-23] MEDS: IPRATROPIUM/ALBUTEROL 0.5-3(2.5)MG/3ML NEB HHN SCH ×6 (01:01→21:31)
[2018-11-23] MEDS: ACETAMINOPHEN 325MG TABLET PO PRN ×2 (06:21→14:02)
[2018-11-23 07:49] LABS: BASOPHILS % 0.3 % (0.0-2.0); LYMPHOCYTES % 17.3 % (20.0-50.0); MEAN CORPUSCULAR HEMOGLOBIN 28.1 pg (28.0-32.0); MEAN CORPUSCULAR VOLUME 90.1 fL (80.0-94.0); MEAN PLATELET VOLUME 8.4 fl (7.4-10.4); MONOCYTES % 10.6 % (2.0-8.0); NEUTROPHILS % 70.8 % (40.0-76.0); PLATELET 252 x1000/uL (130-400); RED BLOOD CELL COUNT 3.56 mill/uL (4.7-6.1); RED CELL DISTRIBUTION WIDTH 19.8 % (11.6-14.6)
[2018-11-23] MEDS: BUDESONIDE 0.5MG/2ML NEB HHN SCH ×2 (08:59→21:31)
[2018-11-23] MEDS: FUROSEMIDE 40MG/4ML VIAL IVP SCH ×2 (09:00→16:37)
[2018-11-23] MEDS: SACUBITRIL/VALSARTAN 24/26 TAB PO SCH ×2 (09:05→16:32)
[2018-11-23] MEDS: CARVEDILOL 3.125 MG TABLET PO SCH (09:05)
[2018-11-23] MEDS: POTASSIUM CHLORIDE 20MEQ TABLET SR PO SCH (09:05)
[2018-11-23] MEDS: ENOXAPARIN 40MG/0.4ML SYR SUBCUT SCH ×2 (09:06→21:55)
[2018-11-23 09:51] LABS: CHLORIDE 102 mEq/L (98-107)
[2018-11-23] MEDS: METOPROLOL TARTRATE 25MG TABLET PO SCH ×2 (10:41→21:00)
[2018-11-23] MEDS: FLUDROCORTISONE ACETATE 0.1MG TABLET PO SCH ×2 (10:50→16:32)
[2018-11-23] MEDS ORDERED: METHYLPREDNISOLONE SOD SUCC 40 MG/ML VIAL IV NR (16:00)
[2018-11-23] MEDS: HYDROCODONE/ACETAMINOPHEN 5/325MG TABLET PO PRN (21:56)
[2018-11-24] VITALS: BP 111/66
[2018-11-24] MEDS: IPRATROPIUM/ALBUTEROL 0.5-3(2.5)MG/3ML NEB HHN SCH ×6 (00:22→20:53)
[2018-11-24 04:00] VITALS: BP 103/62
[2018-11-24] MEDS: HYDROCODONE/ACETAMINOPHEN 5/325MG TABLET PO PRN ×6 (05:57→21:30)
[2018-11-24 07:38] LABS: HEMATOCRIT. 32.5 % (42.0-52.0); HEMOGLOBIN. 10.1 g/dL (14.0-18.0); MEAN CORPUSCULAR HEMOGLOBIN 28.1 pg (28.0-32.0); MEAN CORPUSCULAR VOLUME 90.3 fL (80.0-94.0); MEAN PLATELET VOLUME 8.4 fl (7.4-10.4); PLATELET 261 x1000/uL (130-400)
[2018-11-24 08:00] VITALS: BP 109/72
[2018-11-24] MEDS: BUDESONIDE 0.5MG/2ML NEB HHN SCH (08:08)
[2018-11-24 08:42] LABS: CHLORIDE 104 mEq/L (98-107)
[2018-11-24] MEDS: METOPROLOL TARTRATE 25MG TABLET PO SCH ×2 (09:00→21:00)
[2018-11-24] MEDS: FUROSEMIDE 40MG/4ML VIAL IVP SCH (09:44)
[2018-11-24] MEDS: POTASSIUM CHLORIDE 20MEQ TABLET SR PO SCH (09:44)
[2018-11-24] MEDS: SACUBITRIL/VALSARTAN 24/26 TAB PO SCH ×2 (09:44→16:29)
[2018-11-24] MEDS: FLUDROCORTISONE ACETATE 0.1MG TABLET PO SCH ×2 (09:44→16:29)
[2018-11-24] MEDS: ENOXAPARIN 40MG/0.4ML SYR SUBCUT SCH ×2 (09:45→21:20)
[2018-11-24 10:12] LABS: PLATELET ESTIMATE NORMAL
[2018-11-24] MEDS ORDERED: METOLAZONE 2.5MG TABLET PO NR (10:15)
[2018-11-24 12:00] VITALS: BP 90/47
[2018-11-24] MEDS ORDERED: GUAIFENESIN-DM 200MG-20MG/10ML UDC PO PRN (13:15)
[2018-11-24] MEDS ORDERED: BUDESONIDE 0.5MG/2ML NEB HHN SCH (14:00)
[2018-11-24] MEDS ORDERED: [UNRECOGNIZED DRUG - CODE] PO (14:08)
[2018-11-24] MEDS ORDERED: CARV3.1242 MT (14:08)
[2018-11-24] MEDS ORDERED: FLOR PO (14:08)
[2018-11-24] MEDS ORDERED: SACU1TAB PO (14:08)
[2018-11-24 16:00] VITALS: BP 94/62
[2018-11-24] MEDS ORDERED: BUMETANIDE 1MG/4ML VIAL IV SCH (17:00)
[2018-11-24 20:00] VITALS: BP 100/57
[2018-11-25] VITALS: BP 103/9
[2018-11-25] MEDS: IPRATROPIUM/ALBUTEROL 0.5-3(2.5)MG/3ML NEB HHN SCH ×2 (00:48→04:45)
[2018-11-25 04:00] VITALS: BP 127/87
[2018-11-25 06:06] LABS: CHLORIDE 100 mEq/L (98-107)
[2018-11-25 06:53] LABS: BASOPHILS % 0.2 % (0.0-2.0); EOSINOPHILS % 0.1 % (0.0-5.0); HEMATOCRIT. 33.3 % (42.0-52.0); HEMOGLOBIN. 10.4 g/dL (14.0-18.0); LYMPHOCYTES % 8.8 % (20.0-50.0); MEAN CORPUSCULAR HEMOGLOBIN 28.1 pg (28.0-32.0); MEAN PLATELET VOLUME 8.6 fl (7.4-10.4); MONOCYTES % 7.6 % (2.0-8.0); NEUTROPHILS % 83.3 % (40.0-76.0); PLATELET 271 x1000/uL (130-400); RED CELL DISTRIBUTION WIDTH 19.8 % (11.6-14.6)
[2018-11-25] MEDS ORDERED: BUMETANIDE 1MG TABLET PO SCH (07:15)
[2018-11-25] MEDS: FLUDROCORTISONE ACETATE 0.1MG TABLET PO SCH (07:46)
[2018-11-25] MEDS: SACUBITRIL/VALSARTAN 24/26 TAB PO SCH (07:46)
[2018-11-25] MEDS: POTASSIUM CHLORIDE 20MEQ TABLET SR PO SCH (07:46)
[2018-11-25] MEDS: ENOXAPARIN 40MG/0.4ML SYR SUBCUT SCH (07:47)
[2018-11-25] MEDS: HYDROCODONE/ACETAMINOPHEN 5/325MG TABLET PO PRN (07:47)
[2018-11-25] MEDS: METOPROLOL TARTRATE 25MG TABLET PO SCH (07:49)
[2018-11-25 07:56] VITALS: BP 104/80
[2018-11-25 07:57] VITALS: BP 104/80
== END 2018-11-25 09:10 | disposition home or self-care (01) | DRG 133 ==
LOC: ER 17:08 → EDBEDREQ 17:42 → EDBEDREQTM 21:36 → EDBEDREQ 21:36 → EDBEDREQSVC 21:36 → 6WST 22:58 → EDBEDREQTM 23:03 → EDBEDREQ 23:03 → ENRESERV 23:37
PROVIDERS: ADMIT Internal Medicine; ATTEND Internal Medicine
DX: J96.20 Acute and chronic respiratory failure, unspecified whether with hypoxia or hypercapnia (principal); I47.2 Ventricular tachycardia; I50.43 Acute on chronic combined systolic (congestive) and diastolic (congestive) heart failure; E66.01 Morbid (severe) obesity due to excess calories; I95.89 Other hypotension; Z68.43 Body mass index [BMI] 50.0-59.9, adult; I42.0 Dilated cardiomyopathy; I11.0 Hypertensive heart disease with heart failure; E11.9 Type 2 diabetes mellitus without complications; J98.01 Acute bronchospasm; E78.00 Pure hypercholesterolemia, unspecified; J44.9 Chronic obstructive pulmonary disease, unspecified; L73.2 Hidradenitis suppurativa; G47.33 Obstructive sleep apnea (adult) (pediatric); E78.5 Hyperlipidemia, unspecified; F14.10 Cocaine abuse, uncomplicated; S21.001A Unspecified open wound of right breast, initial encounter; X58.XXXA Exposure to other specified factors, initial encounter; Y93.89 Activity, other specified; Y92.89 Other specified places as the place of occurrence of the external cause; Y99.8 Other external cause status; Z91.14 Patient's other noncompliance with medication regimen; Z99.81 Dependence on supplemental oxygen; Z88.6 Allergy status to analgesic agent; Z71.3 Dietary counseling and surveillance
CPT/HCPCS: 36415; 71045; 80048; 80305; 81003; 83605; 83735; 83880; 84145; 84484; 93005; 94640; 96374; 99285; J1650; J1940; J2920; J3490; J7030; J7620; J7626

== ENCOUNTER 2018-12-03 10:51 | Inpatient (IN) | payer MEDICAID ==
[~2018-12-03] VITALS: Ht 165.1 cm; Wt 148.8 kg
[~2018-12-03 10:51] MED LIST changes: +FLOR PO; -FURO80TA3 MT; +[UNRECOGNIZED DRUG - CODE] PO
[2018-12-03] MEDS ORDERED: MORPHINE SULFATE 4 MG/ML CPJ (NOT FOR IM USE) IV STA (11:37)
[2018-12-03] MEDS ORDERED: ALBUTEROL (0.083%) 2.5MG/3ML NEB HHN STA (11:37)
[2018-12-03] MEDS ORDERED: IPRATROPIUM BROMIDE (0.02%) 0.5MG/2.5ML NEB HHN STA (11:37)
[2018-12-03 12:15] LABS: HEMATOCRIT. 32.6 % (42.0-52.0); HEMOGLOBIN. 10.4 g/dL (14.0-18.0); MEAN CORPUSCULAR HEMOGLOBIN 28.9 pg (28.0-32.0); MEAN CORPUSCULAR VOLUME 90.4 fL (80.0-94.0); PLATELET 305 x1000/uL (130-400); RED BLOOD CELL COUNT 3.61 mill/uL (4.7-6.1)
[2018-12-03 12:28] LABS: CHLORIDE 102 mEq/L (98-107)
[2018-12-03 12:47] LABS: PLATELET ESTIMATE NORMAL
[2018-12-03] MEDS ORDERED: ENALAPRIL 2.5MG/2ML VIAL 2ML IV ONE (13:45)
[2018-12-03] MEDS ORDERED: FUROSEMIDE 40MG/4ML VIAL IVP ONE (13:45)
[2018-12-03] MEDS ORDERED: ENALAPRIL 1.25MG/ML VIAL 1ML IV NR (14:00)
[2018-12-03] MEDS ORDERED: MORPHINE SULFATE 2 MG/ML CPJ (NOT FOR IM USE) IV NR (16:08)
[2018-12-03 17:04] LABS: *AMPHETAMINES SCREEN URINE NEGATIVE (NEGATIVE); *BARBITURATES SCREEN URINE NEGATIVE (NEGATIVE); *BENZODIAZEPINES SCREEN URINE NEGATIVE (NEGATIVE); *COCAINE SCREEN URINE NEGATIVE (NEGATIVE); METHADONE URINE SCREEN NEGATIVE (NEGATIVE); OPIATES URINE SCREEN PRESUMTIVE POSITIVE (NEGATIVE); PHENCYCLIDINE URINE SCREEN NEGATIVE (NEGATIVE)
[2018-12-03 17:05] LABS: CANNABINOID URINE SCREEN NEGATIVE (NEGATIVE)
[2018-12-03] MEDS ORDERED: BUME1TAB8 PO (17:28)
[2018-12-03 17:30] VITALS: BP 106/83
[2018-12-03] MEDS ORDERED: FURO40TA5 PO (17:38)
[2018-12-03] MEDS ORDERED: INFLUENZA VIRUS VACCINE(AFLURIA) 0.5ML SYR IM ONE (19:15)
[2018-12-03] MEDS ORDERED: LACTULOSE 20G/30ML UDC PO NR (19:30)
[2018-12-03] MEDS ORDERED: DEXTROSE 50% WATER 50ML SYRINGE IV PRN (19:30)
[2018-12-03 20:00] VITALS: BP 128/69
[2018-12-03] MEDS ORDERED: PNEUMOCOCCAL 23-VAL P-SAC VAC 0.5 ML IM ONE (20:15)
[2018-12-03] MEDS: INSULIN LISPRO 100 UNITS/ML SUBCUT SCH (20:34)
[2018-12-03] MEDS: BLOOD SUGAR DIAGNOSTIC STRIP TEST SCH (20:34)
[2018-12-03] MEDS: ATORVASTATIN CALCIUM 10MG TABLET PO SCH (20:36)
[2018-12-03] MEDS: POTASSIUM CHLORIDE 20MEQ TABLET SR PO SCH (20:36)
[2018-12-03] MEDS: ENOXAPARIN 40MG/0.4ML SYR SUBCUT SCH (20:36)
[2018-12-03] MEDS: CARVEDILOL 3.125 MG TABLET PO SCH (20:36)
[2018-12-03] MEDS: BUMETANIDE 1MG/4ML VIAL IV SCH (23:07)
[2018-12-03] MEDS: IPRATROPIUM/ALBUTEROL 0.5-3(2.5)MG/3ML NEB HHN SCH (23:17)
[2018-12-04] VITALS (7 sets, daily range): BP systolic 102–142; BP diastolic 62–115
[2018-12-04] MEDS: HYDROCODONE/ACETAMINOPHEN 5/325MG TABLET PO PRN ×3 (04:53→18:43)
[2018-12-04] MEDS: IPRATROPIUM/ALBUTEROL 0.5-3(2.5)MG/3ML NEB HHN SCH ×5 (05:26→21:22)
[2018-12-04] MEDS: BLOOD SUGAR DIAGNOSTIC STRIP TEST SCH ×4 (05:53→20:46)
[2018-12-04] MEDS: INSULIN LISPRO 100 UNITS/ML SUBCUT SCH ×4 (06:20→20:46)
[2018-12-04] MEDS: CARVEDILOL 3.125 MG TABLET PO SCH ×2 (09:00→20:46)
[2018-12-04] MEDS: ASPIRIN 81MG EC TABLET PO SCH (09:55)
[2018-12-04] MEDS: BUMETANIDE 1MG/4ML VIAL IV SCH ×2 (09:56→18:22)
[2018-12-04] MEDS: POTASSIUM CHLORIDE 20MEQ TABLET SR PO SCH ×2 (09:56→18:19)
[2018-12-04 10:31] LABS: BASOPHILS % 0.3 % (0.0-2.0); EOSINOPHILS % 0.5 % (0.0-5.0); HEMATOCRIT. 30.3 % (42.0-52.0); HEMOGLOBIN. 9.6 g/dL (14.0-18.0); MEAN CORPUSCULAR HEMOGLOBIN 28.2 pg (28.0-32.0); MEAN CORPUSCULAR VOLUME 89.2 fL (80.0-94.0); MEAN PLATELET VOLUME 7.9 fl (7.4-10.4); MONOCYTES % 10.3 % (2.0-8.0); NEUTROPHILS % 75.9 % (40.0-76.0); PLATELET 298 x1000/uL (130-400); RED BLOOD CELL COUNT 3.39 mill/uL (4.7-6.1); RED CELL DISTRIBUTION WIDTH 19.6 % (11.6-14.6)
[2018-12-04] MEDS: ENOXAPARIN 40MG/0.4ML SYR SUBCUT SCH ×2 (11:59→20:46)
[2018-12-04 13:01] LABS: CHLORIDE 101 mEq/L (98-107)
[2018-12-04] MEDS: ATORVASTATIN CALCIUM 10MG TABLET PO SCH (20:46)
[2018-12-04] MEDS ORDERED: IPRATROPIUM/ALBUTEROL 0.5-3(2.5)MG/3ML NEB HHN SCH (21:00)
[2018-12-05] VITALS: BP 94/65
[2018-12-05] MEDS: IPRATROPIUM/ALBUTEROL 0.5-3(2.5)MG/3ML NEB HHN SCH ×6 (00:59→21:48)
[2018-12-05 04:00] VITALS: BP 106/64
[2018-12-05] MEDS: HYDROCODONE/ACETAMINOPHEN 5/325MG TABLET PO PRN ×3 (05:15→23:58)
[2018-12-05] MEDS: INSULIN LISPRO 100 UNITS/ML SUBCUT SCH ×4 (06:15→20:54)
[2018-12-05] MEDS: BLOOD SUGAR DIAGNOSTIC STRIP TEST SCH ×4 (06:15→20:30)
[2018-12-05 08:00] VITALS: BP 104/66
[2018-12-05 08:03] LABS: BASOPHILS % 0.1 % (0.0-2.0); CHLORIDE 103 mEq/L (98-107); EOSINOPHILS % 0.3 % (0.0-5.0); HEMATOCRIT. 30.6 % (42.0-52.0); HEMOGLOBIN. 9.5 g/dL (14.0-18.0); LYMPHOCYTES % 11.1 % (20.0-50.0); MEAN CORPUSCULAR HEMOGLOBIN 28.1 pg (28.0-32.0); MEAN CORPUSCULAR VOLUME 90.2 fL (80.0-94.0); MEAN PLATELET VOLUME 8.2 fl (7.4-10.4); MONOCYTES % 10.8 % (2.0-8.0); NEUTROPHILS % 77.7 % (40.0-76.0); PLATELET 290 x1000/uL (130-400); RED BLOOD CELL COUNT 3.39 mill/uL (4.7-6.1); RED CELL DISTRIBUTION WIDTH 20.1 % (11.6-14.6)
[2018-12-05] MEDS: BUMETANIDE 1MG/4ML VIAL IV SCH ×2 (10:06→19:38)
[2018-12-05] MEDS: CARVEDILOL 3.125 MG TABLET PO SCH ×2 (10:07→20:52)
[2018-12-05] MEDS: POTASSIUM CHLORIDE 20MEQ TABLET SR PO SCH ×2 (10:08→19:38)
[2018-12-05] MEDS: ASPIRIN 81MG EC TABLET PO SCH (10:54)
[2018-12-05] MEDS: ENOXAPARIN 40MG/0.4ML SYR SUBCUT SCH ×2 (10:54→20:30)
[2018-12-05 12:00] VITALS: BP 120/64
[2018-12-05 16:00] VITALS: BP 103/74
[2018-12-05 20:00] VITALS: BP 93/61
[2018-12-05] MEDS: ATORVASTATIN CALCIUM 10MG TABLET PO SCH (20:29)
[2018-12-06 00:03] VITALS: BP 126/69
[2018-12-06] MEDS: IPRATROPIUM/ALBUTEROL 0.5-3(2.5)MG/3ML NEB HHN SCH ×7 (01:03→23:20)
[2018-12-06 04:00] VITALS: BP 98/60
[2018-12-06] MEDS: HYDROCODONE/ACETAMINOPHEN 5/325MG TABLET PO PRN ×2 (05:12→10:36)
[2018-12-06] MEDS: BLOOD SUGAR DIAGNOSTIC STRIP TEST SCH ×4 (06:59→21:43)
[2018-12-06] MEDS: INSULIN LISPRO 100 UNITS/ML SUBCUT SCH ×4 (07:03→21:00)
[2018-12-06 07:23] LABS: BASOPHILS % 0.3 % (0.0-2.0); EOSINOPHILS % 0.7 % (0.0-5.0); HEMATOCRIT. 29.5 % (42.0-52.0); HEMOGLOBIN. 9.3 g/dL (14.0-18.0); MEAN CORPUSCULAR HEMOGLOBIN 28.7 pg (28.0-32.0); MEAN CORPUSCULAR VOLUME 90.7 fL (80.0-94.0); MONOCYTES % 10.1 % (2.0-8.0); NEUTROPHILS % 75.9 % (40.0-76.0); PLATELET 266 x1000/uL (130-400); RED BLOOD CELL COUNT 3.25 mill/uL (4.7-6.1); RED CELL DISTRIBUTION WIDTH 19.8 % (11.6-14.6)
[2018-12-06 07:31] LABS: CHLORIDE 104 mEq/L (98-107)
[2018-12-06 08:00] VITALS: BP 102/69
[2018-12-06] MEDS: CARVEDILOL 3.125 MG TABLET PO SCH ×2 (09:14→21:00)
[2018-12-06] MEDS: POTASSIUM CHLORIDE 20MEQ TABLET SR PO SCH ×2 (09:14→17:49)
[2018-12-06] MEDS: ASPIRIN 81MG EC TABLET PO SCH (09:14)
[2018-12-06] MEDS: [UNRECOGNIZED DRUG - REMARK] PO SCH ×2 (09:14→21:48)
[2018-12-06] MEDS: ENOXAPARIN 40MG/0.4ML SYR SUBCUT SCH ×2 (09:15→21:47)
[2018-12-06] MEDS: BUMETANIDE 1MG/4ML VIAL IV SCH ×2 (09:15→15:49)
[2018-12-06] MEDS ORDERED: LIDOCAINE 5% PATCH TOP SCH (11:15)
[2018-12-06 12:00] VITALS: BP 101/64
[2018-12-06] MEDS ORDERED: BUMETANIDE 1MG/4ML VIAL IV SCH (13:00)
[2018-12-06] MEDS ORDERED: METOLAZONE 2.5MG TABLET PO NR ×2 (13:36→16:00)
[2018-12-06] MEDS: GABAPENTIN 300MG CAPSULE PO SCH ×2 (14:00→22:00)
[2018-12-06] MEDS: LIDOCAINE 5% PATCH TOP SCH (15:39)
[2018-12-06 16:00] VITALS: BP 97/54
[2018-12-06 20:00] VITALS: BP 94/70
[2018-12-06] MEDS: ATORVASTATIN CALCIUM 10MG TABLET PO SCH (21:48)
[2018-12-07] VITALS: BP 93/51
[2018-12-07] MEDS: MORPHINE SULFATE 2 MG/ML CPJ (NOT FOR IM USE) IV PRN ×2 (03:58→23:32)
[2018-12-07 04:00] VITALS: BP 118/62
[2018-12-07] MEDS: IPRATROPIUM/ALBUTEROL 0.5-3(2.5)MG/3ML NEB HHN SCH ×5 (04:33→20:38)
[2018-12-07] MEDS: GABAPENTIN 300MG CAPSULE PO SCH ×3 (06:00→22:00)
[2018-12-07] MEDS: BLOOD SUGAR DIAGNOSTIC STRIP TEST SCH ×4 (06:21→20:38)
[2018-12-07] MEDS: INSULIN LISPRO 100 UNITS/ML SUBCUT SCH ×4 (06:21→20:38)
[2018-12-07 07:17] LABS: EOSINOPHILS % 0.6 % (0.0-5.0); HEMOGLOBIN. 9.8 g/dL (14.0-18.0); LYMPHOCYTES % 14.4 % (20.0-50.0); MEAN CORPUSCULAR HEMOGLOBIN 28.4 pg (28.0-32.0); MEAN CORPUSCULAR VOLUME 89.5 fL (80.0-94.0); MEAN PLATELET VOLUME 7.9 fl (7.4-10.4); MONOCYTES % 11.4 % (2.0-8.0); NEUTROPHILS % 72.6 % (40.0-76.0); PLATELET 290 x1000/uL (130-400); RED BLOOD CELL COUNT 3.46 mill/uL (4.7-6.1); RED CELL DISTRIBUTION WIDTH 20.2 % (11.6-14.6)
[2018-12-07 07:49] LABS: CHLORIDE 103 mEq/L (98-107)
[2018-12-07 08:00] VITALS: BP 105/63
[2018-12-07] MEDS: ASPIRIN 81MG EC TABLET PO SCH (09:37)
[2018-12-07] MEDS: POTASSIUM CHLORIDE 20MEQ TABLET SR PO SCH ×2 (09:37→18:35)
[2018-12-07] MEDS: LIDOCAINE 5% PATCH TOP SCH (09:37)
[2018-12-07] MEDS: CARVEDILOL 3.125 MG TABLET PO SCH ×2 (09:38→20:16)
[2018-12-07] MEDS: [UNRECOGNIZED DRUG - REMARK] PO SCH ×2 (09:38→20:16)
[2018-12-07] MEDS: ENOXAPARIN 40MG/0.4ML SYR SUBCUT SCH ×2 (09:38→20:38)
[2018-12-07] MEDS: BUMETANIDE 1MG/4ML VIAL IV SCH ×2 (09:45→12:56)
[2018-12-07 12:00] VITALS: BP 116/70
[2018-12-07 16:00] VITALS: BP 102/64
[2018-12-07] MEDS: HYDROCODONE/ACETAMINOPHEN 5/325MG TABLET PO PRN (18:50)
[2018-12-07 20:00] VITALS: BP 109/64
[2018-12-07] MEDS: ATORVASTATIN CALCIUM 10MG TABLET PO SCH (20:16)
[2018-12-07] MEDS: BUMETANIDE 2.5MG/10ML VIAL IV SCH (20:29)
[2018-12-08] VITALS: BP 97/73
[2018-12-08] MEDS: IPRATROPIUM/ALBUTEROL 0.5-3(2.5)MG/3ML NEB HHN SCH ×4 (00:45→12:59)
[2018-12-08 04:00] VITALS: BP 100/68
[2018-12-08] MEDS: MORPHINE SULFATE 2 MG/ML CPJ (NOT FOR IM USE) IV PRN (05:11)
[2018-12-08] MEDS: GABAPENTIN 300MG CAPSULE PO SCH (05:44)
[2018-12-08] MEDS: BLOOD SUGAR DIAGNOSTIC STRIP TEST SCH ×2 (06:20→12:03)
[2018-12-08] MEDS: INSULIN LISPRO 100 UNITS/ML SUBCUT SCH ×2 (06:20→12:04)
[2018-12-08 07:08] LABS: BASOPHILS % 0.5 % (0.0-2.0); EOSINOPHILS % 0.6 % (0.0-5.0); HEMATOCRIT. 32.6 % (42.0-52.0); HEMOGLOBIN. 10.3 g/dL (14.0-18.0); LYMPHOCYTES % 12.3 % (20.0-50.0); MEAN CORPUSCULAR HEMOGLOBIN 28.3 pg (28.0-32.0); MEAN CORPUSCULAR VOLUME 89.7 fL (80.0-94.0); MEAN PLATELET VOLUME 7.7 fl (7.4-10.4); MONOCYTES % 13.2 % (2.0-8.0); NEUTROPHILS % 73.4 % (40.0-76.0); PLATELET 299 x1000/uL (130-400); RED BLOOD CELL COUNT 3.63 mill/uL (4.7-6.1); RED CELL DISTRIBUTION WIDTH 20.1 % (11.6-14.6)
[2018-12-08 07:13] LABS: CHLORIDE 99 mEq/L (98-107)
[2018-12-08 08:07] VITALS: BP 96/67
[2018-12-08] MEDS: BUMETANIDE 2.5MG/10ML VIAL IV SCH (09:13)
[2018-12-08] MEDS: ENOXAPARIN 40MG/0.4ML SYR SUBCUT SCH (09:14)
[2018-12-08] MEDS: LIDOCAINE 5% PATCH TOP SCH (09:14)
[2018-12-08] MEDS: POTASSIUM CHLORIDE 20MEQ TABLET SR PO SCH (09:14)
[2018-12-08] MEDS: [UNRECOGNIZED DRUG - REMARK] PO SCH (09:14)
[2018-12-08] MEDS: ASPIRIN 81MG EC TABLET PO SCH (09:14)
[2018-12-08] MEDS: CARVEDILOL 3.125 MG TABLET PO SCH (09:14)
[2018-12-08 12:00] VITALS: BP 90/56
[2018-12-08 12:14] VITALS: BP 90/56
== END 2018-12-08 13:15 | disposition home or self-care (01) | DRG 194 ==
LOC: ER 10:51 → 5WST 13:32 → ENRESERV 16:07
PROVIDERS: ADMIT Internal Medicine; ATTEND Internal Medicine
DX: I11.0 Hypertensive heart disease with heart failure (principal); I27.20 Pulmonary hypertension, unspecified; I42.0 Dilated cardiomyopathy; E11.9 Type 2 diabetes mellitus without complications; I50.23 Acute on chronic systolic (congestive) heart failure; E66.09 Other obesity due to excess calories; G89.29 Other chronic pain; I25.10 Atherosclerotic heart disease of native coronary artery without angina pectoris; E78.5 Hyperlipidemia, unspecified; E87.6 Hypokalemia; G47.33 Obstructive sleep apnea (adult) (pediatric); I43 Cardiomyopathy in diseases classified elsewhere; J44.9 Chronic obstructive pulmonary disease, unspecified; M06.9 Rheumatoid arthritis, unspecified; Z68.43 Body mass index [BMI] 50.0-59.9, adult; Z82.3 Family history of stroke; Z82.49 Family history of ischemic heart disease and other diseases of the circulatory system; Z79.4 Long term (current) use of insulin
CPT/HCPCS: 36415; 71045; 80048; 80305; 82962; 83735; 83880; 84484; 90686; 93005; 94640; 97116; 97162; 99285; J1650; J1815; J1940; J2270; J3490; J7611; J7620

== ENCOUNTER 2018-12-24 07:42 | Inpatient (IN) | payer MEDICAID ==
[~2018-12-24] VITALS: Ht 165.1 cm; Wt 147.9 kg
[~2018-12-24 07:42] MED LIST changes: +BUME1TAB8 PO; +FURO40TA5 PO
[2018-12-24] MEDS ORDERED: MORPHINE SULFATE 4 MG/ML CPJ (NOT FOR IM USE) IV STA (08:07)
[2018-12-24] MEDS ORDERED: ALBUTEROL (0.083%) 2.5MG/3ML NEB HHN STA (08:07)
[2018-12-24] MEDS ORDERED: ONDANSETRON HCL 4MG/2ML INJ IV STA (08:07)
[2018-12-24] MEDS ORDERED: METHYLPREDNISOLONE SOD SUCC 125 MG/2 ML VIAL IV STA (08:07)
[2018-12-24] MEDS ORDERED: IPRATROPIUM BROMIDE (0.02%) 0.5MG/2.5ML NEB HHN STA (08:07)
[2018-12-24] MEDS ORDERED: MAGNESIUM 2 G PREMIX 50 ML IV ONE (08:15)
[2018-12-24] MEDS ORDERED: FUROSEMIDE 40MG/4ML VIAL IV ONE (08:15)
[2018-12-24 08:36] LABS: BASOPHILS % 1.1 % (0.0-2.0); EOSINOPHILS % 0.4 % (0.0-5.0); HEMATOCRIT. 31.7 % (42.0-52.0); HEMOGLOBIN. 10.1 g/dL (14.0-18.0); LYMPHOCYTES % 14.6 % (20.0-50.0); MEAN CORPUSCULAR HEMOGLOBIN 28.2 pg (28.0-32.0); MEAN CORPUSCULAR VOLUME 88.9 fL (80.0-94.0); MEAN PLATELET VOLUME 7.4 fl (7.4-10.4); MONOCYTES % 11.1 % (2.0-8.0); NEUTROPHILS % 72.8 % (40.0-76.0); PLATELET 336 x1000/uL (130-400); RED BLOOD CELL COUNT 3.57 mill/uL (4.7-6.1)
[2018-12-24 08:41] LABS: CHLORIDE 105 mEq/L (98-107)
[2018-12-24 08:44] LABS: INR 1.1; PROTHROMBIN TIME 11.1 sec (9.6-11.0)
[2018-12-24] MEDS ORDERED: NA PHOS,M-B/NA PHOS,DI-BA ENEMA 118ML PR PRN (11:30)
[2018-12-24] MEDS ORDERED: GUAIFENESIN 200MG/10ML SUGAR FREE UDC PO PRN (11:30)
[2018-12-24] MEDS ORDERED: DEXTROSE 50% WATER 50ML SYRINGE IV PRN (11:30)
[2018-12-24] MEDS ORDERED: ONDANSETRON HCL 4MG/2ML INJ IV PRN (11:30)
[2018-12-24] MEDS ORDERED: HYDROCODONE/ACETAMINOPHEN 10/325MG TABLET PO PRN (11:30)
[2018-12-24] MEDS ORDERED: LORAZEPAM 2MG/ML CPJ IV PRN (11:30)
[2018-12-24] MEDS ORDERED: DIPHENHYDRAMINE 50MG/ML VIAL IV PRN (11:30)
[2018-12-24] MEDS ORDERED: ACETAMINOPHEN 325MG TABLET PO PRN (11:30)
[2018-12-24] MEDS ORDERED: HYDRALAZINE 20MG/ML VIAL IV PRN (11:30)
[2018-12-24] MEDS ORDERED: CLONIDINE 0.1MG TABLET PO PRN (11:30)
[2018-12-24] MEDS ORDERED: DOCUSATE SODIUM 100MG CAPSULE PO PRN (11:30)
[2018-12-24] MEDS ORDERED: IPRATROPIUM/ALBUTEROL 0.5-3(2.5)MG/3ML NEB HHN PRN (11:30)
[2018-12-24] MEDS ORDERED: MAGNESIUM/ALUMINUM HYDROXIDE/SIMETHICONE 30ML UDC PO PRN (11:30)
[2018-12-24] MEDS: MORPHINE SULFATE 2 MG/ML CPJ (NOT FOR IM USE) IV PRN ×2 (13:04→18:15)
[2018-12-24 14:40] VITALS: BP 119/75
[2018-12-24 15:52] VITALS: BP 119/75
[2018-12-24 16:00] VITALS: BP 109/67
[2018-12-24] MEDS: FUROSEMIDE 100MG/10ML VIAL IVP SCH (16:15)
[2018-12-24] MEDS: LORATADINE 10MG TABLET PO SCH (16:15)
[2018-12-24] MEDS: POTASSIUM CHLORIDE 20MEQ TABLET SR PO SCH (16:15)
[2018-12-24] MEDS ORDERED: FUROSEMIDE 40MG/4ML VIAL IVP SCH (17:00)
[2018-12-24] MEDS: IPRATROPIUM/ALBUTEROL 0.5-3(2.5)MG/3ML NEB HHN SCH ×2 (17:02→19:49)
[2018-12-24 17:20] LABS: CREATINE KINASE 50 IU/L (39-308)
[2018-12-24 17:22] LABS: CREATINE KINASE MB FRACTION < 1.0 ng/mL (0.5-3.6)
[2018-12-24 18:35] LABS: *AMPHETAMINES SCREEN URINE NEGATIVE (NEGATIVE); *BARBITURATES SCREEN URINE NEGATIVE (NEGATIVE); *BENZODIAZEPINES SCREEN URINE NEGATIVE (NEGATIVE); *COCAINE SCREEN URINE PRESUMTIVE POSITIVE (NEGATIVE)
[2018-12-24 18:36] LABS: CANNABINOID URINE SCREEN NEGATIVE (NEGATIVE); METHADONE URINE SCREEN NEGATIVE (NEGATIVE); OPIATES URINE SCREEN PRESUMTIVE POSITIVE (NEGATIVE); PHENCYCLIDINE URINE SCREEN NEGATIVE (NEGATIVE)
[2018-12-24] MEDS: BUDESONIDE 0.5MG/2ML NEB HHN SCH (19:49)
[2018-12-24 20:00] VITALS: BP 107/76
[2018-12-24] MEDS: SODIUM CHLORIDE 0.9% INJ 3ML FLUSH IVF SCH (21:03)
[2018-12-24] MEDS: ENOXAPARIN 40MG/0.4ML SYR SUBCUT SCH (21:03)
[2018-12-24] MEDS: FAMOTIDINE 20MG TABLET PO SCH (21:03)
[2018-12-24] MEDS: ATORVASTATIN CALCIUM 10MG TABLET PO SCH (21:03)
[2018-12-24] MEDS: FLUTICASONE PROPIONATE 50MCG/SPRAY BOTTLE BOTHNSTRLS SCH (21:03)
[2018-12-25] VITALS: BP 103/66
[2018-12-25 00:28] LABS: CREATINE KINASE 45 IU/L (39-308)
[2018-12-25 01:22] LABS: CREATINE KINASE MB FRACTION < 1.0 ng/mL (0.5-3.6)
[2018-12-25] MEDS: IPRATROPIUM/ALBUTEROL 0.5-3(2.5)MG/3ML NEB HHN SCH ×6 (03:59→23:38)
[2018-12-25 04:00] VITALS: BP 115/79
[2018-12-25] MEDS: MORPHINE SULFATE 2 MG/ML CPJ (NOT FOR IM USE) IV PRN ×4 (05:56→20:55)
[2018-12-25] MEDS: SODIUM CHLORIDE 0.9% INJ 3ML FLUSH IVF SCH ×3 (05:56→20:57)
[2018-12-25] MEDS: FUROSEMIDE 100MG/10ML VIAL IVP SCH ×2 (06:15→17:09)
[2018-12-25 06:28] LABS: HEMATOCRIT. 31.8 % (42.0-52.0); MEAN CORPUSCULAR HEMOGLOBIN 27.9 pg (28.0-32.0); MEAN CORPUSCULAR VOLUME 88.2 fL (80.0-94.0); MEAN PLATELET VOLUME 7.7 fl (7.4-10.4); PLATELET 325 x1000/uL (130-400); RED CELL DISTRIBUTION WIDTH 19.1 % (11.6-14.6)
[2018-12-25 06:38] LABS: CHLORIDE 99 mEq/L (98-107)
[2018-12-25 06:51] LABS: T4 FREE 0.89 ng/dL (0.76-1.46)
[2018-12-25 08:00] VITALS: BP 95/52
[2018-12-25] MEDS: BUDESONIDE 0.5MG/2ML NEB HHN SCH ×2 (08:31→20:21)
[2018-12-25] MEDS: LORATADINE 10MG TABLET PO SCH (09:30)
[2018-12-25] MEDS: ASPIRIN 81MG EC TABLET PO SCH (09:30)
[2018-12-25] MEDS: POTASSIUM CHLORIDE 20MEQ TABLET SR PO SCH (09:30)
[2018-12-25] MEDS: ENOXAPARIN 40MG/0.4ML SYR SUBCUT SCH ×2 (09:31→20:56)
[2018-12-25] MEDS: FLUTICASONE PROPIONATE 50MCG/SPRAY BOTTLE BOTHNSTRLS SCH ×2 (09:32→20:56)
[2018-12-25 12:00] VITALS: BP 98/50
[2018-12-25 15:41] LABS: PLATELET ESTIMATE NORMAL
[2018-12-25 16:00] VITALS: BP 115/78
[2018-12-25 20:00] VITALS: BP 100/60
[2018-12-25] MEDS: FAMOTIDINE 20MG TABLET PO SCH (20:56)
[2018-12-25] MEDS: ATORVASTATIN CALCIUM 10MG TABLET PO SCH (20:56)
[2018-12-26] VITALS: BP 128/86
[2018-12-26 04:00] VITALS: BP 101/74
[2018-12-26] MEDS: IPRATROPIUM/ALBUTEROL 0.5-3(2.5)MG/3ML NEB HHN SCH ×3 (04:28→11:42)
[2018-12-26] MEDS: FUROSEMIDE 100MG/10ML VIAL IVP SCH (06:30)
[2018-12-26] MEDS: MORPHINE SULFATE 2 MG/ML CPJ (NOT FOR IM USE) IV PRN ×2 (06:31→13:23)
[2018-12-26] MEDS: SODIUM CHLORIDE 0.9% INJ 3ML FLUSH IVF SCH ×2 (06:31→13:23)
[2018-12-26 07:01] LABS: HEMATOCRIT. 32.1 % (42.0-52.0); MEAN CORPUSCULAR HEMOGLOBIN 27.7 pg (28.0-32.0); MEAN CORPUSCULAR VOLUME 88.5 fL (80.0-94.0); MEAN PLATELET VOLUME 7.6 fl (7.4-10.4); PLATELET 336 x1000/uL (130-400); RED BLOOD CELL COUNT 3.62 mill/uL (4.7-6.1); RED CELL DISTRIBUTION WIDTH 19.3 % (11.6-14.6)
[2018-12-26 07:14] LABS: CHLORIDE 102 mEq/L (98-107)
[2018-12-26 08:00] VITALS: BP 108/75
[2018-12-26] MEDS: BUDESONIDE 0.5MG/2ML NEB HHN SCH (08:19)
[2018-12-26] MEDS ORDERED: POTASSIUM CHLORIDE 20MEQ TABLET SR PO SCH (09:00)
[2018-12-26] MEDS: FLUTICASONE PROPIONATE 50MCG/SPRAY BOTTLE BOTHNSTRLS SCH (09:08)
[2018-12-26] MEDS: LORATADINE 10MG TABLET PO SCH (09:09)
[2018-12-26] MEDS: ASPIRIN 81MG EC TABLET PO SCH (09:09)
[2018-12-26] MEDS: ENOXAPARIN 40MG/0.4ML SYR SUBCUT SCH (09:09)
[2018-12-26 12:00] VITALS: BP 109/78
[2018-12-26 13:28] VITALS: BP 109/78
[2018-12-26 14:17] LABS: PLATELET ESTIMATE NORMAL
== END 2018-12-26 15:23 | disposition home or self-care (01) | DRG 140 ==
LOC: ER 07:42 → 8WST 11:02 → EDBEDREQ 11:06 → ENRESERV 13:09
PROVIDERS: ADMIT Internal Medicine; ATTEND Internal Medicine
PROC: 5A09357 Assistance with Respiratory Ventilation, Less than 24 Consecutive Hours, Continuous Positive Airway Pressure (ICD-10-PCS; principal; 2018-12-25)
DX: J44.1 Chronic obstructive pulmonary disease with (acute) exacerbation (principal); J96.20 Acute and chronic respiratory failure, unspecified whether with hypoxia or hypercapnia; I47.2 Ventricular tachycardia; I50.43 Acute on chronic combined systolic (congestive) and diastolic (congestive) heart failure; E66.01 Morbid (severe) obesity due to excess calories; I27.20 Pulmonary hypertension, unspecified; J45.901 Unspecified asthma with (acute) exacerbation; I42.0 Dilated cardiomyopathy; I11.0 Hypertensive heart disease with heart failure; N40.0 Benign prostatic hyperplasia without lower urinary tract symptoms; E78.5 Hyperlipidemia, unspecified; F41.9 Anxiety disorder, unspecified; G47.33 Obstructive sleep apnea (adult) (pediatric); G89.29 Other chronic pain; I49.3 Ventricular premature depolarization; K21.9 Gastro-esophageal reflux disease without esophagitis; E11.9 Type 2 diabetes mellitus without complications; F14.10 Cocaine abuse, uncomplicated; L73.2 Hidradenitis suppurativa; Z79.82 Long term (current) use of aspirin; Z79.899 Other long term (current) drug therapy; Z82.3 Family history of stroke; Z82.49 Family history of ischemic heart disease and other diseases of the circulatory system; Z87.891 Personal history of nicotine dependence; Z91.19 Patient's noncompliance with other medical treatment and regimen; Z99.81 Dependence on supplemental oxygen; Z68.43 Body mass index [BMI] 50.0-59.9, adult; Z88.8 Allergy status to other drugs, medicaments and biological substances; Z91.018 Allergy to other foods; Z71.3 Dietary counseling and surveillance
CPT/HCPCS: 36415; 71045; 80048; 80305; 82550; 82553; 83735; 83880; 84134; 84439; 84443; 84484; 93005; 93970; 94640; 94660; 99285; C1893; J1650; J1940; J2270; J2405; J2930; J3475; J7611; J7620; J7626

== ENCOUNTER 2019-02-28 13:52 | Inpatient (IN) | payer MEDICAID ==
[~2019-02-28] VITALS: Ht 165.1 cm; Wt 153.8 kg
[2019-02-28] MEDS ORDERED: ACETAMINOPHEN 325MG TABLET PO ONE (16:45)
[2019-02-28] MEDS ORDERED: NITROGLYCERIN OINT 1GM/INCH UDPKT TD ONE (16:45)
[2019-02-28] MEDS ORDERED: ASPIRIN 81MG TABLET PO ONE (16:45)
[2019-02-28] MEDS ORDERED: FUROSEMIDE 40MG/4ML VIAL IV ONE (16:45)
[2019-02-28 16:58] LABS: BASOPHILS % 0.9 % (0.0-2.0); EOSINOPHILS % 0.4 % (0.0-5.0); HEMATOCRIT. 33.7 % (42.0-52.0); HEMOGLOBIN. 10.9 g/dL (14.0-18.0); LYMPHOCYTES % 11.1 % (20.0-50.0); MEAN CORPUSCULAR HEMOGLOBIN 28.3 pg (28.0-32.0); MEAN CORPUSCULAR VOLUME 87.9 fL (80.0-94.0); MEAN PLATELET VOLUME 7.2 fl (7.4-10.4); MONOCYTES % 11.4 % (2.0-8.0); NEUTROPHILS % 76.2 % (40.0-76.0); PLATELET 319 x1000/uL (130-400); RED BLOOD CELL COUNT 3.84 mill/uL (4.7-6.1); RED CELL DISTRIBUTION WIDTH 20.5 % (11.6-14.6)
[2019-02-28 17:00] LABS: CHLORIDE 106 mEq/L (98-107)
[2019-02-28] MEDS ORDERED: ALBUTEROL (0.083%) 2.5MG/3ML NEB HHN STA (20:03)
[2019-02-28] MEDS ORDERED: FUROSEMIDE 20MG/2ML VIAL IV SCH (21:00)
[2019-02-28] MEDS ORDERED: ONDANSETRON HCL 4MG/2ML INJ IV PRN (21:00)
[2019-02-28] MEDS ORDERED: ACETAMINOPHEN 325MG TABLET PO PRN (21:00)
[2019-02-28 22:00] VITALS: BP 92/62
[2019-03-01] VITALS (7 sets, daily range): BP systolic 88–121; BP diastolic 61–83
[2019-03-01 01:48] LABS: *AMPHETAMINES SCREEN URINE NEGATIVE (NEGATIVE); *BARBITURATES SCREEN URINE NEGATIVE (NEGATIVE)
[2019-03-01 01:49] LABS: *BENZODIAZEPINES SCREEN URINE NEGATIVE (NEGATIVE); *COCAINE SCREEN URINE NEGATIVE (NEGATIVE); CANNABINOID URINE SCREEN NEGATIVE (NEGATIVE); METHADONE URINE SCREEN NEGATIVE (NEGATIVE); OPIATES URINE SCREEN NEGATIVE (NEGATIVE); PHENCYCLIDINE URINE SCREEN NEGATIVE (NEGATIVE)
[2019-03-01] MEDS: IPRATROPIUM/ALBUTEROL 0.5-3(2.5)MG/3ML NEB HHN PRN ×2 (05:02→20:29)
[2019-03-01] MEDS: HYDROCODONE/ACETAMINOPHEN 5/325MG TABLET PO PRN ×3 (05:42→17:33)
[2019-03-01 07:14] LABS: BASOPHILS % 0.6 % (0.0-2.0); EOSINOPHILS % 0.4 % (0.0-5.0); HEMATOCRIT. 33.9 % (42.0-52.0); HEMOGLOBIN. 10.4 g/dL (14.0-18.0); LYMPHOCYTES % 15.2 % (20.0-50.0); MEAN CORPUSCULAR HEMOGLOBIN 27.3 pg (28.0-32.0); MEAN CORPUSCULAR VOLUME 88.8 fL (80.0-94.0); MEAN PLATELET VOLUME 7.8 fl (7.4-10.4); MONOCYTES % 10.5 % (2.0-8.0); NEUTROPHILS % 73.3 % (40.0-76.0); PLATELET 317 x1000/uL (130-400); RED BLOOD CELL COUNT 3.82 mill/uL (4.7-6.1); RED CELL DISTRIBUTION WIDTH 20.2 % (11.6-14.6)
[2019-03-01 07:39] LABS: CHLORIDE 103 mEq/L (98-107)
[2019-03-01] MEDS ORDERED: ENOXAPARIN 30MG/0.3ML SYR SUBCUT SCH (09:00)
[2019-03-01] MEDS: ASPIRIN 81MG TABLET PO SCH (09:06)
[2019-03-01] MEDS: FUROSEMIDE 100MG/10ML VIAL IVP SCH ×5 (09:06→20:34)
[2019-03-01] MEDS: BUDESONIDE 0.5MG/2ML NEB HHN SCH ×2 (09:21→20:29)
[2019-03-01] MEDS ORDERED: LOSARTAN POTASSIUM 50 MG TABLET PO SCH (12:00)
[2019-03-01] MEDS: SACUBITRIL/VALSARTAN 24/26 TAB PO SCH (17:30)
[2019-03-01] MEDS: ENOXAPARIN 40MG/0.4ML SYR SUBCUT SCH (20:39)
[2019-03-01] MEDS: CARVEDILOL 6.25 MG TABLET PO SCH (20:40)
[2019-03-02] VITALS: BP 113/67
[2019-03-02 04:00] VITALS: BP 100/65
[2019-03-02] MEDS: HYDROCODONE/ACETAMINOPHEN 5/325MG TABLET PO PRN ×2 (06:13→10:52)
[2019-03-02 06:20] LABS: BASOPHILS % 0.6 % (0.0-2.0); EOSINOPHILS % 0.6 % (0.0-5.0); HEMATOCRIT. 32.6 % (42.0-52.0); HEMOGLOBIN. 10.4 g/dL (14.0-18.0); LYMPHOCYTES % 11.8 % (20.0-50.0); MEAN CORPUSCULAR HEMOGLOBIN 28.1 pg (28.0-32.0); MEAN CORPUSCULAR VOLUME 88.4 fL (80.0-94.0); MEAN PLATELET VOLUME 7.7 fl (7.4-10.4); PLATELET 286 x1000/uL (130-400); RED BLOOD CELL COUNT 3.69 mill/uL (4.7-6.1); RED CELL DISTRIBUTION WIDTH 20.5 % (11.6-14.6)
[2019-03-02 06:25] LABS: CHLORIDE 103 mEq/L (98-107)
[2019-03-02 08:00] VITALS: BP 93/69
[2019-03-02] MEDS: BUDESONIDE 0.5MG/2ML NEB HHN SCH ×2 (08:33→20:42)
[2019-03-02] MEDS: ASPIRIN 81MG TABLET PO SCH (08:45)
[2019-03-02] MEDS: SACUBITRIL/VALSARTAN 24/26 TAB PO SCH ×2 (08:46→18:04)
[2019-03-02] MEDS: ENOXAPARIN 40MG/0.4ML SYR SUBCUT SCH ×2 (08:48→20:22)
[2019-03-02] MEDS: CARVEDILOL 6.25 MG TABLET PO SCH ×2 (09:00→20:22)
[2019-03-02] MEDS: FUROSEMIDE 100MG/10ML VIAL IVP SCH (09:07)
[2019-03-02 12:00] VITALS: BP_SYST 103; BP_SYST 106; BP_DIAS 66; BP_DIAS 71
[2019-03-02] MEDS: AMIODARONE HCL 200 MG TABLET PO SCH ×2 (12:09→20:23)
[2019-03-02 16:00] VITALS: BP 95/60
[2019-03-02] MEDS: GUAIFENESIN 200MG/10ML SUGAR FREE UDC PO PRN (19:08)
[2019-03-02 20:00] VITALS: BP 99/59
[2019-03-03] VITALS (7 sets, daily range): BP systolic 86–127; BP diastolic 48–84
[2019-03-03] MEDS: HYDROCODONE/ACETAMINOPHEN 5/325MG TABLET PO PRN ×3 (01:03→22:38)
[2019-03-03] MEDS: BUDESONIDE 0.5MG/2ML NEB HHN SCH ×2 (07:55→21:03)
[2019-03-03] MEDS: IPRATROPIUM/ALBUTEROL 0.5-3(2.5)MG/3ML NEB HHN PRN (07:56)
[2019-03-03] MEDS: ASPIRIN 81MG TABLET PO SCH (08:24)
[2019-03-03] MEDS: AMIODARONE HCL 200 MG TABLET PO SCH ×2 (08:24→21:49)
[2019-03-03] MEDS: CARVEDILOL 6.25 MG TABLET PO SCH ×2 (08:24→21:00)
[2019-03-03] MEDS: ENOXAPARIN 40MG/0.4ML SYR SUBCUT SCH ×2 (08:24→21:49)
[2019-03-03] MEDS: SACUBITRIL/VALSARTAN 24/26 TAB PO SCH ×2 (08:24→17:38)
[2019-03-03] MEDS: FUROSEMIDE 100MG/10ML VIAL IVP SCH ×2 (08:25→17:00)
[2019-03-03 15:35] LABS: HEMATOCRIT. 31.8 % (42.0-52.0); HEMOGLOBIN. 10.1 g/dL (14.0-18.0); MEAN CORPUSCULAR VOLUME 87.9 fL (80.0-94.0); PLATELET 260 x1000/uL (130-400); RED BLOOD CELL COUNT 3.62 mill/uL (4.7-6.1); RED CELL DISTRIBUTION WIDTH 20.4 % (11.6-14.6)
[2019-03-03 15:45] LABS: CHLORIDE 102 mEq/L (98-107)
[2019-03-03 16:48] LABS: PLATELET ESTIMATE NORMAL
[2019-03-04] VITALS: BP 86/58
[2019-03-04 04:00] VITALS: BP 88/46
[2019-03-04 06:30] LABS: BASOPHILS % 1.4 % (0.0-2.0); EOSINOPHILS % 0.4 % (0.0-5.0); HEMOGLOBIN. 10.1 g/dL (14.0-18.0); MEAN CORPUSCULAR VOLUME 88.4 fL (80.0-94.0); MEAN PLATELET VOLUME 7.5 fl (7.4-10.4); MONOCYTES % 11.7 % (2.0-8.0); NEUTROPHILS % 69.5 % (40.0-76.0); PLATELET 262 x1000/uL (130-400); RED BLOOD CELL COUNT 3.61 mill/uL (4.7-6.1); RED CELL DISTRIBUTION WIDTH 20.7 % (11.6-14.6)
[2019-03-04 08:00] VITALS: BP 95/55
[2019-03-04] MEDS: CARVEDILOL 6.25 MG TABLET PO SCH ×2 (09:00→20:24)
[2019-03-04] MEDS: FUROSEMIDE 100MG/10ML VIAL IVP SCH ×2 (10:17→17:02)
[2019-03-04] MEDS: SACUBITRIL/VALSARTAN 24/26 TAB PO SCH ×2 (10:17→17:02)
[2019-03-04] MEDS: AMIODARONE HCL 200 MG TABLET PO SCH ×2 (10:17→20:54)
[2019-03-04] MEDS: ASPIRIN 81MG TABLET PO SCH (10:17)
[2019-03-04] MEDS: ENOXAPARIN 40MG/0.4ML SYR SUBCUT SCH ×2 (10:18→20:54)
[2019-03-04] MEDS: GUAIFENESIN 200MG/10ML SUGAR FREE UDC PO PRN (10:21)
[2019-03-04 12:00] VITALS: BP 103/79
[2019-03-04 16:00] VITALS: BP 106/70
[2019-03-04] MEDS: IPRATROPIUM/ALBUTEROL 0.5-3(2.5)MG/3ML NEB HHN PRN ×2 (17:47→23:31)
[2019-03-04 20:00] VITALS: BP 109/73
[2019-03-04] MEDS: HYDROCODONE/ACETAMINOPHEN 5/325MG TABLET PO PRN (23:19)
[2019-03-05] VITALS: BP 111/79
[2019-03-05 04:00] VITALS: BP 116/80
[2019-03-05] MEDS: IPRATROPIUM/ALBUTEROL 0.5-3(2.5)MG/3ML NEB HHN PRN ×4 (04:42→20:22)
[2019-03-05 07:50] LABS: BASOPHILS % 0.4 % (0.0-2.0); EOSINOPHILS % 0.2 % (0.0-5.0); HEMATOCRIT. 33.3 % (42.0-52.0); HEMOGLOBIN. 10.3 g/dL (14.0-18.0); LYMPHOCYTES % 17.7 % (20.0-50.0); MEAN CORPUSCULAR HEMOGLOBIN 27.3 pg (28.0-32.0); MEAN CORPUSCULAR VOLUME 88.4 fL (80.0-94.0); MEAN PLATELET VOLUME 7.8 fl (7.4-10.4); MONOCYTES % 10.2 % (2.0-8.0); NEUTROPHILS % 71.5 % (40.0-76.0); PLATELET 265 x1000/uL (130-400); RED BLOOD CELL COUNT 3.77 mill/uL (4.7-6.1); RED CELL DISTRIBUTION WIDTH 20.3 % (11.6-14.6)
[2019-03-05 08:00] VITALS: BP 101/79
[2019-03-05 08:19] LABS: CHLORIDE 101 mEq/L (98-107)
[2019-03-05 08:26] LABS: PHOSPHORUS 3.8 mg/dL (2.5-4.9)
[2019-03-05] MEDS: SACUBITRIL/VALSARTAN 24/26 TAB PO SCH ×2 (08:45→17:12)
[2019-03-05] MEDS: ENOXAPARIN 40MG/0.4ML SYR SUBCUT SCH ×2 (08:45→21:21)
[2019-03-05] MEDS: ASPIRIN 81MG TABLET PO SCH (08:45)
[2019-03-05] MEDS: AMIODARONE HCL 200 MG TABLET PO SCH ×2 (08:45→21:21)
[2019-03-05] MEDS: FUROSEMIDE 100MG/10ML VIAL IVP SCH ×2 (08:46→17:12)
[2019-03-05] MEDS: CARVEDILOL 6.25 MG TABLET PO SCH (08:46)
[2019-03-05 12:00] VITALS: BP 101/66
[2019-03-05] MEDS: HYDROCODONE/ACETAMINOPHEN 5/325MG TABLET PO PRN ×2 (14:49→19:54)
[2019-03-05 16:00] VITALS: BP 100/72
[2019-03-05 20:00] VITALS: BP 111/72
[2019-03-06] VITALS: BP 110/77
[2019-03-06] MEDS: CARVEDILOL 6.25 MG TABLET PO SCH ×3 (00:33→21:00)
[2019-03-06] MEDS: IPRATROPIUM/ALBUTEROL 0.5-3(2.5)MG/3ML NEB HHN PRN ×5 (00:38→21:40)
[2019-03-06 04:00] VITALS: BP 105/60
[2019-03-06 07:10] LABS: BASOPHILS % 0.5 % (0.0-2.0); EOSINOPHILS % 0.5 % (0.0-5.0); HEMOGLOBIN. 9.9 g/dL (14.0-18.0); LYMPHOCYTES % 12.3 % (20.0-50.0); MEAN CORPUSCULAR HEMOGLOBIN 28.3 pg (28.0-32.0); MEAN CORPUSCULAR VOLUME 88.4 fL (80.0-94.0); MEAN PLATELET VOLUME 8.1 fl (7.4-10.4); MONOCYTES % 12.3 % (2.0-8.0); NEUTROPHILS % 74.4 % (40.0-76.0); PLATELET 238 x1000/uL (130-400); RED CELL DISTRIBUTION WIDTH 20.3 % (11.6-14.6)
[2019-03-06 08:00] VITALS: BP 108/63
[2019-03-06 08:17] LABS: CHLORIDE 102 mEq/L (98-107)
[2019-03-06] MEDS: FUROSEMIDE 100MG/10ML VIAL IVP SCH ×2 (09:00→09:29)
[2019-03-06] MEDS: AMIODARONE HCL 200 MG TABLET PO SCH ×2 (09:28→21:23)
[2019-03-06] MEDS: SACUBITRIL/VALSARTAN 24/26 TAB PO SCH ×2 (09:29→17:33)
[2019-03-06] MEDS: ASPIRIN 81MG TABLET PO SCH (09:29)
[2019-03-06] MEDS: ENOXAPARIN 40MG/0.4ML SYR SUBCUT SCH ×2 (09:29→21:25)
[2019-03-06] MEDS: HYDROCODONE/ACETAMINOPHEN 5/325MG TABLET PO PRN ×2 (11:38→17:37)
[2019-03-06 12:00] VITALS: BP 103/76
[2019-03-06 16:00] VITALS: BP 96/60
[2019-03-06] MEDS: FUROSEMIDE 40MG TABLET PO SCH (22:13)
[2019-03-07] VITALS (7 sets, daily range): BP systolic 101–126; BP diastolic 59–73
[2019-03-07] MEDS: IPRATROPIUM/ALBUTEROL 0.5-3(2.5)MG/3ML NEB HHN PRN ×2 (01:07→21:22)
[2019-03-07] MEDS: GUAIFENESIN 200MG/10ML SUGAR FREE UDC PO PRN ×2 (06:57→22:48)
[2019-03-07] MEDS: AMIODARONE HCL 200 MG TABLET PO SCH ×2 (09:00→21:04)
[2019-03-07] MEDS: SACUBITRIL/VALSARTAN 24/26 TAB PO SCH ×2 (09:23→17:46)
[2019-03-07] MEDS: ENOXAPARIN 40MG/0.4ML SYR SUBCUT SCH ×2 (09:23→21:04)
[2019-03-07] MEDS: FUROSEMIDE 40MG TABLET PO SCH (09:24)
[2019-03-07] MEDS: ASPIRIN 81MG TABLET PO SCH (09:24)
[2019-03-07] MEDS: CARVEDILOL 6.25 MG TABLET PO SCH ×2 (09:29→21:03)
[2019-03-07] MEDS ORDERED: MECLIZINE 25MG TABLET PO PRN (10:30)
[2019-03-07] MEDS: FUROSEMIDE 100MG/10ML VIAL IVP SCH ×2 (11:49→17:46)
[2019-03-07] MEDS: MONTELUKAST SODIUM 10MG TABLET PO SCH (18:31)
[2019-03-07] MEDS: HYDROCODONE/ACETAMINOPHEN 5/325MG TABLET PO PRN (22:49)
[2019-03-08 04:00] VITALS: BP 91/64
[2019-03-08] MEDS: IPRATROPIUM/ALBUTEROL 0.5-3(2.5)MG/3ML NEB HHN PRN ×3 (04:41→13:10)
[2019-03-08 06:27] LABS: BASOPHILS % 0.4 % (0.0-2.0); EOSINOPHILS % 0.5 % (0.0-5.0); HEMATOCRIT. 30.5 % (42.0-52.0); HEMOGLOBIN. 9.7 g/dL (14.0-18.0); LYMPHOCYTES % 17.8 % (20.0-50.0); MEAN CORPUSCULAR HEMOGLOBIN 28.1 pg (28.0-32.0); MEAN CORPUSCULAR VOLUME 88.8 fL (80.0-94.0); MONOCYTES % 12.8 % (2.0-8.0); NEUTROPHILS % 68.5 % (40.0-76.0); PLATELET 231 x1000/uL (130-400); RED BLOOD CELL COUNT 3.44 mill/uL (4.7-6.1); RED CELL DISTRIBUTION WIDTH 20.4 % (11.6-14.6)
[2019-03-08 06:50] LABS: CHLORIDE 102 mEq/L (98-107)
[2019-03-08] MEDS: FUROSEMIDE 100MG/10ML VIAL IVP SCH ×2 (07:08→16:29)
[2019-03-08 08:00] VITALS: BP 107/80
[2019-03-08] MEDS: GUAIFENESIN 200MG/10ML SUGAR FREE UDC PO PRN ×2 (08:09→16:29)
[2019-03-08] MEDS: ASPIRIN 81MG TABLET PO SCH (08:10)
[2019-03-08] MEDS: AMIODARONE HCL 200 MG TABLET PO SCH (08:10)
[2019-03-08] MEDS: ENOXAPARIN 40MG/0.4ML SYR SUBCUT SCH ×2 (08:10→21:12)
[2019-03-08] MEDS: CARVEDILOL 6.25 MG TABLET PO SCH ×2 (08:10→21:11)
[2019-03-08] MEDS: HYDROCODONE/ACETAMINOPHEN 5/325MG TABLET PO PRN ×4 (08:11→23:34)
[2019-03-08] MEDS: SACUBITRIL/VALSARTAN 24/26 TAB PO SCH ×2 (08:13→16:29)
[2019-03-08] MEDS: POTASSIUM CHLORIDE 20MEQ TABLET SR PO SCH (10:59)
[2019-03-08 12:00] VITALS: BP 110/78
[2019-03-08] MEDS: METOLAZONE 5MG TABLET PO SCH ×2 (12:18→16:29)
[2019-03-08 16:00] VITALS: BP 120/62
[2019-03-08] MEDS: MONTELUKAST SODIUM 10MG TABLET PO SCH (16:29)
[2019-03-08 20:00] VITALS: BP 116/58
[2019-03-09] VITALS (7 sets, daily range): BP systolic 94–110; BP diastolic 45–71
[2019-03-09] MEDS: FUROSEMIDE 100MG/10ML VIAL IVP SCH ×2 (06:33→16:13)
[2019-03-09 07:46] LABS: HEMATOCRIT. 32.7 % (42.0-52.0); HEMOGLOBIN. 10.1 g/dL (14.0-18.0); MEAN CORPUSCULAR HEMOGLOBIN 27.3 pg (28.0-32.0); MEAN CORPUSCULAR VOLUME 88.2 fL (80.0-94.0); PLATELET 255 x1000/uL (130-400); RED CELL DISTRIBUTION WIDTH 20.5 % (11.6-14.6)
[2019-03-09 08:00] LABS: CHLORIDE 99 mEq/L (98-107)
[2019-03-09] MEDS: ENOXAPARIN 40MG/0.4ML SYR SUBCUT SCH ×2 (08:23→20:25)
[2019-03-09] MEDS: POTASSIUM CHLORIDE 20MEQ TABLET SR PO SCH (08:23)
[2019-03-09] MEDS: ASPIRIN 81MG TABLET PO SCH (08:23)
[2019-03-09] MEDS: METOLAZONE 5MG TABLET PO SCH ×2 (08:24→16:13)
[2019-03-09] MEDS: AMIODARONE HCL 200 MG TABLET PO SCH (08:24)
[2019-03-09] MEDS: CARVEDILOL 6.25 MG TABLET PO SCH ×2 (08:24→20:23)
[2019-03-09] MEDS: HYDROCODONE/ACETAMINOPHEN 5/325MG TABLET PO PRN ×2 (08:35→20:24)
[2019-03-09] MEDS: SACUBITRIL/VALSARTAN 24/26 TAB PO SCH ×2 (11:20→16:14)
[2019-03-09] MEDS: MONTELUKAST SODIUM 10MG TABLET PO SCH (16:13)
[2019-03-09 19:06] LABS: PLATELET ESTIMATE NORMAL
[2019-03-10] VITALS: BP 104/52
[2019-03-10] MEDS: HYDROCODONE/ACETAMINOPHEN 5/325MG TABLET PO PRN ×2 (00:39→06:52)
[2019-03-10] MEDS: IPRATROPIUM/ALBUTEROL 0.5-3(2.5)MG/3ML NEB HHN PRN (01:38)
[2019-03-10 04:00] VITALS: BP 108/64
[2019-03-10] MEDS: FUROSEMIDE 100MG/10ML VIAL IVP SCH (06:32)
[2019-03-10 06:54] LABS: BASOPHILS % 0.4 % (0.0-2.0); EOSINOPHILS % 0.8 % (0.0-5.0); HEMATOCRIT. 31.9 % (42.0-52.0); HEMOGLOBIN. 10.1 g/dL (14.0-18.0); LYMPHOCYTES % 12.1 % (20.0-50.0); MEAN CORPUSCULAR HEMOGLOBIN 27.9 pg (28.0-32.0); MEAN PLATELET VOLUME 7.8 fl (7.4-10.4); MONOCYTES % 14.8 % (2.0-8.0); NEUTROPHILS % 71.9 % (40.0-76.0); PLATELET 248 x1000/uL (130-400); RED BLOOD CELL COUNT 3.62 mill/uL (4.7-6.1)
[2019-03-10 07:44] LABS: CHLORIDE 97 mEq/L (98-107)
[2019-03-10 08:00] VITALS: BP 96/44
[2019-03-10] MEDS: ASPIRIN 81MG TABLET PO SCH (08:46)
[2019-03-10] MEDS: POTASSIUM CHLORIDE 20MEQ TABLET SR PO SCH (08:46)
[2019-03-10] MEDS: AMIODARONE HCL 200 MG TABLET PO SCH (08:46)
[2019-03-10] MEDS: METOLAZONE 5MG TABLET PO SCH (08:46)
[2019-03-10] MEDS: ENOXAPARIN 40MG/0.4ML SYR SUBCUT SCH (08:47)
[2019-03-10] MEDS: SACUBITRIL/VALSARTAN 24/26 TAB PO SCH (08:47)
[2019-03-10] MEDS: CARVEDILOL 6.25 MG TABLET PO SCH (08:48)
[2019-03-10 12:00] VITALS: BP 99/42
[2019-03-10] MEDS ORDERED: METO5TAB7 PO (15:39)
[2019-03-10] MEDS ORDERED: COR6 PO (15:39)
[2019-03-10] MEDS ORDERED: POTA20TA82 PO (15:39)
[2019-03-10] MEDS ORDERED: MONT10TA21 PO (15:39)
[2019-03-10] MEDS ORDERED: AMI2 PO (15:39)
[2019-03-10 16:27] VITALS: BP 116/69
== END 2019-03-10 17:44 | disposition home or self-care (01) | DRG 133 ==
LOC: ER 13:52 → 5WST 19:38 → EDBEDREQTM 19:40 → EDBEDREQ 19:40 → ENRESERV 20:40 → 5WST 03-01 05:26
PROVIDERS: ADMIT Internal Medicine; ATTEND Internal Medicine
DX: J96.20 Acute and chronic respiratory failure, unspecified whether with hypoxia or hypercapnia (principal); I50.23 Acute on chronic systolic (congestive) heart failure; I42.9 Cardiomyopathy, unspecified; E66.01 Morbid (severe) obesity due to excess calories; Z99.81 Dependence on supplemental oxygen; I47.1 Supraventricular tachycardia; Z68.43 Body mass index [BMI] 50.0-59.9, adult; I11.0 Hypertensive heart disease with heart failure; E11.9 Type 2 diabetes mellitus without complications; J44.9 Chronic obstructive pulmonary disease, unspecified; I44.7 Left bundle-branch block, unspecified; E78.5 Hyperlipidemia, unspecified; Z91.19 Patient's noncompliance with other medical treatment and regimen; Z87.891 Personal history of nicotine dependence; Z79.899 Other long term (current) drug therapy; Z88.8 Allergy status to other drugs, medicaments and biological substances; Z71.89 Other specified counseling; Z79.82 Long term (current) use of aspirin
CPT/HCPCS: 36415; 71045; 73610; 80048; 80053; 80305; 83735; 83880; 84100; 84484; 85025; 93005; 94640; 97116; 97162; 97530; 99285; C1893; J1650; J1940; J7611; J7620; J7626; J8597

== ENCOUNTER 2019-03-21 07:18 | Inpatient (IN) | payer MEDICAID ==
[~2019-03-21] VITALS: Ht 172.7 cm; Wt 157.4 kg
[~2019-03-21 07:18] MED LIST changes: +AMI2 PO; -BUME1TAB8 PO; -CARV3.1242 MT; +COR6 PO; +METO5TAB7 PO; +MONT10TA21 PO; +POTA20TA82 PO; -[UNRECOGNIZED DRUG - CODE] PO
[2019-03-21] MEDS ORDERED: METHYLPREDNISOLONE SOD SUCC 125 MG/2 ML VIAL IV STA (07:30)
[2019-03-21] MEDS ORDERED: FUROSEMIDE 20MG/2ML VIAL IVP ONE (07:30)
[2019-03-21] MEDS ORDERED: ALBUTEROL (0.083%) 2.5MG/3ML NEB HHN STA (07:30)
[2019-03-21] MEDS ORDERED: IPRATROPIUM BROMIDE (0.02%) 0.5MG/2.5ML NEB HHN STA (07:30)
[2019-03-21 08:12] LABS: HEMATOCRIT. 34.8 % (42.0-52.0); HEMOGLOBIN. 10.9 g/dL (14.0-18.0); MEAN CORPUSCULAR HEMOGLOBIN 27.7 pg (28.0-32.0); MEAN CORPUSCULAR VOLUME 87.9 fL (80.0-94.0); RED BLOOD CELL COUNT 3.95 mill/uL (4.7-6.1)
[2019-03-21 08:20] LABS: INR 1.1; PROTHROMBIN TIME 11.3 sec (9.6-11.0)
[2019-03-21 08:23] LABS: CHLORIDE 103 mEq/L (98-107)
[2019-03-21 08:39] LABS: PLATELET 376 x1000/uL (130-400)
[2019-03-21 08:41] LABS: NUCLEATED RED BLOOD CELLS 1 /100 WBC; PLATELET ESTIMATE NORMAL
[2019-03-21] MEDS ORDERED: HYDROCODONE/ACETAMINOPHEN 5/325MG TABLET PO PRN (09:15)
[2019-03-21] MEDS ORDERED: IPRATROPIUM/ALBUTEROL 0.5-3(2.5)MG/3ML NEB NEB PRN (09:15)
[2019-03-21] MEDS ORDERED: GUAIFENESIN 200MG/10ML SUGAR FREE UDC PO PRN (09:15)
[2019-03-21] MEDS ORDERED: ACETAMINOPHEN 325MG TABLET PO PRN (09:15)
[2019-03-21] MEDS ORDERED: CLONIDINE 0.1MG TABLET PO PRN (09:15)
[2019-03-21] MEDS ORDERED: LEVOFLOXACIN 500MG PREMIX 100 ML IV ONE (09:15)
[2019-03-21] MEDS ORDERED: DOCUSATE SODIUM 100MG CAPSULE PO PRN (09:15)
[2019-03-21] MEDS ORDERED: LORAZEPAM 2MG/ML CPJ IV PRN (09:15)
[2019-03-21] MEDS ORDERED: MAGNESIUM/ALUMINUM HYDROXIDE/SIMETHICONE 30ML UDC PO PRN (09:15)
[2019-03-21] MEDS ORDERED: ONDANSETRON HCL 4MG/2ML INJ IV PRN (09:15)
[2019-03-21] MEDS ORDERED: DIPHENHYDRAMINE 50MG/ML VIAL IV PRN (09:15)
[2019-03-21] MEDS ORDERED: NA PHOS,M-B/NA PHOS,DI-BA ENEMA 118ML PR PRN (09:15)
[2019-03-21 09:16] LABS: BG BASE EXCESS 2.9 mmol/L (-2.0-2.0); BG BILEVEL POS AIRWAY PRESSURE 15/5; BG CARBOXYHEMOGLOBIN 0.7 % (0.5-1.5); BG DEOXYHEMOGLOBIN 0.5 % (0.0-5.0); BG FRACTION INSPIRED OXYGEN 40; BG HCO3 ACT 28.6 mmol/L (22.0-26.0); BG METHEMOGLOBIN 0.3 % (0.0-1.5); BG OXYGEN SATURATION 99.5 % (92.0-98.5); BG OXYHEMOGLOBIN 98.5 % (94.0-97.0); BG PCO2 49.3 mmHg (35.0-45.0); BG PH 7.382 (7.350-7.450); BG PO2 256.2 mmHg (75.0-100.0); BG SAMPLE SITE RIGHT RADIAL; BG VENT MODE MASK - BIPAP
[2019-03-21 10:10] LABS: CLARITY URINE CLEAR (CLEAR); COLOR URINE YELLOW (YELLOW); KETONES URINE NEGATIVE (NEGATIVE); LEUKOCYTE ESTERASE URINE NEGATIVE (NEGATIVE); NITRITE URINE NEGATIVE (NEGATIVE); OCCULT BLOOD URINE 1+ (NEGATIVE); PH URINE 5.5 (4.5-8.0); PROTEIN URINE NEGATIVE (NEGATIVE); SPECIFIC GRAVITY URINE 1.016 (1.005-1.030)
[2019-03-21 11:17] LABS: *BARBITURATES SCREEN URINE NEGATIVE (NEGATIVE); OPIATES URINE SCREEN NEGATIVE (NEGATIVE)
[2019-03-21 11:18] LABS: *AMPHETAMINES SCREEN URINE NEGATIVE (NEGATIVE); *BENZODIAZEPINES SCREEN URINE NEGATIVE (NEGATIVE); *COCAINE SCREEN URINE NEGATIVE (NEGATIVE); PHENCYCLIDINE URINE SCREEN NEGATIVE (NEGATIVE)
[2019-03-21 11:19] LABS: METHADONE URINE SCREEN NEGATIVE (NEGATIVE)
[2019-03-21 11:50] LABS: CANNABINOID URINE SCREEN NEGATIVE (NEGATIVE)
[2019-03-21] MEDS: MORPHINE SULFATE 2 MG/ML CPJ (NOT FOR IM USE) IV PRN ×2 (12:31→20:28)
[2019-03-21] MEDS: ENOXAPARIN 40MG/0.4ML SYR SUBCUT SCH ×2 (12:44→21:00)
[2019-03-21] MEDS: ASPIRIN 81MG EC TABLET PO SCH (12:44)
[2019-03-21] MEDS: METHYLPREDNISOLONE SOD SUCC 125 MG/2 ML VIAL IV SCH ×2 (14:17→18:12)
[2019-03-21 14:33] LABS: CHLORIDE 104 mEq/L (98-107)
[2019-03-21] MEDS: CARVEDILOL 6.25 MG TABLET PO SCH ×2 (15:47→23:00)
[2019-03-21] MEDS: FUROSEMIDE 40MG/4ML VIAL IV SCH (17:27)
[2019-03-21] MEDS ORDERED: ATORVASTATIN CALCIUM 40MG TABLET PO SCH (23:45)
[2019-03-22] VITALS (11 sets, daily range): BP systolic 98–139; BP diastolic 47–90
[2019-03-22] MEDS: MORPHINE SULFATE 2 MG/ML CPJ (NOT FOR IM USE) IV PRN ×4 (01:28→23:04)
[2019-03-22] MEDS: IPRATROPIUM/ALBUTEROL 0.5-3(2.5)MG/3ML NEB HHN SCH ×5 (03:15→20:10)
[2019-03-22] MEDS: FUROSEMIDE 40MG/4ML VIAL IV SCH ×2 (06:48→18:36)
[2019-03-22] MEDS: METHYLPREDNISOLONE SOD SUCC 125 MG/2 ML VIAL IV SCH ×4 (06:48→18:36)
[2019-03-22] MEDS ORDERED: FUROSEMIDE 40MG/4ML VIAL IV SCH (09:00)
[2019-03-22] MEDS: ASPIRIN 81MG EC TABLET PO SCH (09:06)
[2019-03-22] MEDS: ENOXAPARIN 40MG/0.4ML SYR SUBCUT SCH ×2 (09:06→20:34)
[2019-03-22] MEDS: CARVEDILOL 6.25 MG TABLET PO SCH ×2 (09:07→20:33)
[2019-03-22 09:19] LABS: HEMATOCRIT. 31.1 % (42.0-52.0); HEMOGLOBIN. 9.6 g/dL (14.0-18.0); MEAN CORPUSCULAR VOLUME 87.1 fL (80.0-94.0); MEAN PLATELET VOLUME 7.7 fl (7.4-10.4); PLATELET 360 x1000/uL (130-400); RED BLOOD CELL COUNT 3.57 mill/uL (4.7-6.1); RED CELL DISTRIBUTION WIDTH 19.8 % (11.6-14.6)
[2019-03-22 09:46] LABS: CHLORIDE 101 mEq/L (98-107)
[2019-03-22 09:59] LABS: LDL CHOLESTEROL 108 mg/dL (5-100); T4 FREE 1.11 ng/dL (0.76-1.46)
[2019-03-22 10:01] LABS: HDL CHOLESTEROL 26 mg/dL (40-59)
[2019-03-22] MEDS ORDERED: AMIODARONE HCL 200 MG TABLET PO NR (10:30)
[2019-03-22 18:38] LABS: PLATELET ESTIMATE NORMAL
[2019-03-22] MEDS: ATORVASTATIN CALCIUM 40MG TABLET PO SCH (20:33)
[2019-03-23] VITALS (12 sets, daily range): BP systolic 97–158; BP diastolic 59–104
[2019-03-23] MEDS: IPRATROPIUM/ALBUTEROL 0.5-3(2.5)MG/3ML NEB HHN SCH ×6 (00:19→20:22)
[2019-03-23] MEDS: METHYLPREDNISOLONE SOD SUCC 125 MG/2 ML VIAL IV SCH ×4 (01:06→18:16)
[2019-03-23 05:55] LABS: HEMATOCRIT. 30.8 % (42.0-52.0); HEMOGLOBIN. 9.7 g/dL (14.0-18.0); MEAN CORPUSCULAR HEMOGLOBIN 27.4 pg (28.0-32.0); MEAN CORPUSCULAR VOLUME 87.2 fL (80.0-94.0); MEAN PLATELET VOLUME 8.1 fl (7.4-10.4); PLATELET 364 x1000/uL (130-400); RED BLOOD CELL COUNT 3.54 mill/uL (4.7-6.1); RED CELL DISTRIBUTION WIDTH 19.7 % (11.6-14.6)
[2019-03-23] MEDS: FUROSEMIDE 40MG/4ML VIAL IV SCH ×2 (06:19→18:16)
[2019-03-23] MEDS: MORPHINE SULFATE 2 MG/ML CPJ (NOT FOR IM USE) IV PRN ×3 (06:27→20:39)
[2019-03-23 08:06] LABS: CHLORIDE 100 mEq/L (98-107)
[2019-03-23] MEDS: CARVEDILOL 6.25 MG TABLET PO SCH ×2 (08:37→20:37)
[2019-03-23] MEDS: ASPIRIN 81MG EC TABLET PO SCH (08:37)
[2019-03-23] MEDS: ENOXAPARIN 40MG/0.4ML SYR SUBCUT SCH ×2 (08:37→20:38)
[2019-03-23] MEDS ORDERED: LACTULOSE 20G/30ML UDC NG SCH (19:00)
[2019-03-23 19:25] LABS: PLATELET ESTIMATE NORMAL
[2019-03-23] MEDS: ATORVASTATIN CALCIUM 40MG TABLET PO SCH (20:37)
[2019-03-24] VITALS (12 sets, daily range): BP systolic 98–148; BP diastolic 49–92
[2019-03-24] MEDS: IPRATROPIUM/ALBUTEROL 0.5-3(2.5)MG/3ML NEB HHN SCH ×6 (00:28→20:29)
[2019-03-24] MEDS: METHYLPREDNISOLONE SOD SUCC 125 MG/2 ML VIAL IV SCH ×4 (00:43→17:41)
[2019-03-24 05:35] LABS: HEMATOCRIT. 29.5 % (42.0-52.0); HEMOGLOBIN. 9.2 g/dL (14.0-18.0); MEAN CORPUSCULAR HEMOGLOBIN 27.3 pg (28.0-32.0); MEAN CORPUSCULAR VOLUME 87.2 fL (80.0-94.0); MEAN PLATELET VOLUME 8.1 fl (7.4-10.4); PLATELET 335 x1000/uL (130-400); RED BLOOD CELL COUNT 3.38 mill/uL (4.7-6.1); RED CELL DISTRIBUTION WIDTH 19.5 % (11.6-14.6)
[2019-03-24] MEDS: MORPHINE SULFATE 2 MG/ML CPJ (NOT FOR IM USE) IV PRN ×4 (05:55→22:05)
[2019-03-24 06:59] LABS: CHLORIDE 99 mEq/L (98-107)
[2019-03-24] MEDS: FUROSEMIDE 40MG/4ML VIAL IV SCH (08:11)
[2019-03-24] MEDS: ENOXAPARIN 40MG/0.4ML SYR SUBCUT SCH ×2 (08:11→22:03)
[2019-03-24] MEDS: ASPIRIN 81MG EC TABLET PO SCH (08:11)
[2019-03-24] MEDS: CARVEDILOL 6.25 MG TABLET PO SCH ×2 (08:15→22:03)
[2019-03-24 12:59] LABS: PLATELET ESTIMATE NORMAL
[2019-03-24] MEDS ORDERED: SODIUM POLYSTYRENE SULFONATE 15 G/60 ML BOT PO NR (13:30)
[2019-03-24] MEDS: ATORVASTATIN CALCIUM 40MG TABLET PO SCH (22:03)
[2019-03-25] VITALS (12 sets, daily range): BP systolic 109–142; BP diastolic 43–93
[2019-03-25] MEDS: METHYLPREDNISOLONE SOD SUCC 125 MG/2 ML VIAL IV SCH ×3 (00:01→12:37)
[2019-03-25] MEDS: IPRATROPIUM/ALBUTEROL 0.5-3(2.5)MG/3ML NEB HHN SCH ×4 (00:24→12:07)
[2019-03-25] MEDS: MORPHINE SULFATE 2 MG/ML CPJ (NOT FOR IM USE) IV PRN ×3 (03:52→12:37)
[2019-03-25 06:12] LABS: HEMATOCRIT. 31.9 % (42.0-52.0); MEAN CORPUSCULAR HEMOGLOBIN 27.4 pg (28.0-32.0); MEAN CORPUSCULAR VOLUME 87.4 fL (80.0-94.0); MEAN PLATELET VOLUME 8.1 fl (7.4-10.4); PLATELET 334 x1000/uL (130-400); RED BLOOD CELL COUNT 3.64 mill/uL (4.7-6.1); RED CELL DISTRIBUTION WIDTH 19.8 % (11.6-14.6)
[2019-03-25 07:32] LABS: CHLORIDE 99 mEq/L (98-107)
[2019-03-25] MEDS: CARVEDILOL 6.25 MG TABLET PO SCH (08:27)
[2019-03-25] MEDS: ASPIRIN 81MG EC TABLET PO SCH (08:27)
[2019-03-25] MEDS: ENOXAPARIN 40MG/0.4ML SYR SUBCUT SCH (08:28)
[2019-03-25 13:01] LABS: NUCLEATED RED BLOOD CELLS 1 /100 WBC
[2019-03-25 13:02] LABS: PLATELET ESTIMATE NORMAL
[2019-03-25] MEDS ORDERED: PREDNISONE 20MG TABLET PO SCH (17:00)
== END 2019-03-25 16:44 | disposition home or self-care (01) | DRG 720 ==
LOC: ER 07:30 → EDBEDREQ 08:51 → ENRESERV 23:41 → 5EST 03-22 02:02
PROVIDERS: ADMIT Internal Medicine; ATTEND Internal Medicine
PROC: 5A09357 Assistance with Respiratory Ventilation, Less than 24 Consecutive Hours, Continuous Positive Airway Pressure (ICD-10-PCS; principal; 2019-03-21)
PROC: 5A09357 Assistance with Respiratory Ventilation, Less than 24 Consecutive Hours, Continuous Positive Airway Pressure (ICD-10-PCS; 2019-03-23)
PROC: 5A09357 Assistance with Respiratory Ventilation, Less than 24 Consecutive Hours, Continuous Positive Airway Pressure (ICD-10-PCS; 2019-03-24)
PROC: 5A09357 Assistance with Respiratory Ventilation, Less than 24 Consecutive Hours, Continuous Positive Airway Pressure (ICD-10-PCS; 2019-03-25)
DX: A41.9 Sepsis, unspecified organism (principal); J96.21 Acute and chronic respiratory failure with hypoxia; N17.0 Acute kidney failure with tubular necrosis; J69.0 Pneumonitis due to inhalation of food and vomit; E46 Unspecified protein-calorie malnutrition; E66.01 Morbid (severe) obesity due to excess calories; I27.20 Pulmonary hypertension, unspecified; I50.23 Acute on chronic systolic (congestive) heart failure; I42.9 Cardiomyopathy, unspecified; J44.1 Chronic obstructive pulmonary disease with (acute) exacerbation; I11.0 Hypertensive heart disease with heart failure; E11.9 Type 2 diabetes mellitus without complications; D64.9 Anemia, unspecified; E78.5 Hyperlipidemia, unspecified; I25.10 Atherosclerotic heart disease of native coronary artery without angina pectoris; I45.9 Conduction disorder, unspecified; Z79.899 Other long term (current) drug therapy; Z68.43 Body mass index [BMI] 50.0-59.9, adult; Z87.891 Personal history of nicotine dependence; Z99.81 Dependence on supplemental oxygen; Z88.8 Allergy status to other drugs, medicaments and biological substances; Z71.89 Other specified counseling
CPT/HCPCS: 36415; 36600; 71045; 80048; 80053; 80061; 80305; 81003; 82375; 82805; 82962; 83605; 83735; 83880; 84439; 84443; 84484; 85025; 93005; 94640; 94660; 96365; 99291; J1650; J1940; J1956; J2270; J2405; J2930

== ENCOUNTER 2019-03-27 07:32 | Inpatient (IN) | payer MEDICAID ==
[~2019-03-27] VITALS: Ht 172.7 cm; Wt 154.7 kg
[2019-03-27] MEDS ORDERED: FUROSEMIDE 40MG/4ML VIAL IV ONE (08:15)
[2019-03-27] MEDS ORDERED: NITROGLYCERIN OINT 1GM/INCH UDPKT TD ONE (08:15)
[2019-03-27 08:32] LABS: BASOPHILS % 0.2 % (0.0-2.0); EOSINOPHILS % 0.6 % (0.0-5.0); HEMATOCRIT. 34.6 % (42.0-52.0); LYMPHOCYTES % 8.7 % (20.0-50.0); MEAN CORPUSCULAR HEMOGLOBIN 27.6 pg (28.0-32.0); MEAN PLATELET VOLUME 7.9 fl (7.4-10.4); MONOCYTES % 9.9 % (2.0-8.0); NEUTROPHILS % 80.6 % (40.0-76.0); PLATELET 318 x1000/uL (130-400); RED BLOOD CELL COUNT 3.98 mill/uL (4.7-6.1); RED CELL DISTRIBUTION WIDTH 19.8 % (11.6-14.6)
[2019-03-27 08:39] LABS: INR 1.2; PROTHROMBIN TIME 11.9 sec (9.6-11.0)
[2019-03-27 08:43] LABS: CHLORIDE 103 mEq/L (98-107)
[2019-03-27] MEDS ORDERED: PIPERACILLIN/TAZ 3.375G PREMIX 50 ML IV ONE (09:45)
[2019-03-27 09:50] LABS: CLARITY URINE CLEAR (CLEAR); COLOR URINE YELLOW (YELLOW); KETONES URINE NEGATIVE (NEGATIVE); LEUKOCYTE ESTERASE URINE NEGATIVE (NEGATIVE); NITRITE URINE NEGATIVE (NEGATIVE); OCCULT BLOOD URINE NEGATIVE (NEGATIVE); PROTEIN URINE NEGATIVE (NEGATIVE); UROBILINOGEN URINE 0.2 E.U./dL (0.2-1.0)
[2019-03-27] MEDS ORDERED: HYDROCODONE/ACETAMINOPHEN 5/325MG TABLET PO ONE (10:15)
[2019-03-27] MEDS ORDERED: AMIODARONE HCL 200 MG TABLET PO NR (16:30)
[2019-03-27] MEDS ORDERED: ONDANSETRON HCL 4MG/2ML INJ IV PRN (16:45)
[2019-03-27] MEDS: FUROSEMIDE 100MG/10ML VIAL IVP SCH (17:00)
[2019-03-27] MEDS ORDERED: MONTELUKAST SODIUM 10MG TABLET PO NR (17:15)
[2019-03-27] MEDS: PREDNISONE 20MG TABLET PO SCH (17:38)
[2019-03-27] MEDS: ACETAMINOPHEN 325MG TABLET PO PRN (17:39)
[2019-03-27 21:10] VITALS: BP 120/84
[2019-03-27 21:15] VITALS: BP 120/84
[2019-03-27] MEDS: ZOLPIDEM TARTRATE 5MG TABLET PO PRN (22:07)
[2019-03-27] MEDS: ATORVASTATIN CALCIUM 40MG TABLET PO SCH (22:08)
[2019-03-27] MEDS: CARVEDILOL 6.25 MG TABLET PO SCH (22:08)
[2019-03-27] MEDS: ENOXAPARIN 40MG/0.4ML SYR SUBCUT SCH (22:08)
[2019-03-27] MEDS: IPRATROPIUM/ALBUTEROL 0.5-3(2.5)MG/3ML NEB NEB PRN (22:49)
[2019-03-28] VITALS: BP 129/79
[2019-03-28] MEDS: ACETAMINOPHEN 325MG TABLET PO PRN (03:51)
[2019-03-28 04:00] VITALS: BP 116/67
[2019-03-28 07:50] LABS: CHLORIDE 100 mEq/L (98-107)
[2019-03-28 08:00] VITALS: BP 113/83
[2019-03-28 08:09] LABS: BASOPHILS % 0.4 % (0.0-2.0); HEMATOCRIT. 33.7 % (42.0-52.0); HEMOGLOBIN. 10.6 g/dL (14.0-18.0); LYMPHOCYTES % 7.9 % (20.0-50.0); MEAN CORPUSCULAR HEMOGLOBIN 27.5 pg (28.0-32.0); MEAN CORPUSCULAR VOLUME 87.2 fL (80.0-94.0); MONOCYTES % 8.4 % (2.0-8.0); NEUTROPHILS % 83.3 % (40.0-76.0); PLATELET 323 x1000/uL (130-400); RED BLOOD CELL COUNT 3.86 mill/uL (4.7-6.1); RED CELL DISTRIBUTION WIDTH 20.1 % (11.6-14.6)
[2019-03-28] MEDS: FUROSEMIDE 100MG/10ML VIAL IVP SCH ×2 (09:57→17:24)
[2019-03-28] MEDS: POTASSIUM CHLORIDE 20MEQ TABLET SR PO SCH (09:58)
[2019-03-28] MEDS: PREDNISONE 20MG TABLET PO SCH (09:58)
[2019-03-28] MEDS: CARVEDILOL 6.25 MG TABLET PO SCH ×2 (09:59→20:42)
[2019-03-28] MEDS: AMIODARONE HCL 200 MG TABLET PO SCH (09:59)
[2019-03-28] MEDS: ENOXAPARIN 40MG/0.4ML SYR SUBCUT SCH ×2 (10:11→20:41)
[2019-03-28] MEDS: ASPIRIN 81MG EC TABLET PO SCH (11:08)
[2019-03-28 12:00] VITALS: BP 99/68
[2019-03-28] MEDS: HYDROCODONE/ACETAMINOPHEN 10/325MG TABLET PO PRN ×3 (12:23→22:07)
[2019-03-28 16:00] VITALS: BP 110/78
[2019-03-28] MEDS: DOCUSATE SODIUM 100MG CAPSULE PO PRN (16:33)
[2019-03-28] MEDS: MONTELUKAST SODIUM 10MG TABLET PO SCH (17:24)
[2019-03-28 20:00] VITALS: BP 114/76
[2019-03-28] MEDS: ATORVASTATIN CALCIUM 40MG TABLET PO SCH (20:41)
[2019-03-28] MEDS: ZOLPIDEM TARTRATE 5MG TABLET PO PRN (23:21)
[2019-03-29] VITALS: BP 107/77
[2019-03-29] MEDS: IPRATROPIUM/ALBUTEROL 0.5-3(2.5)MG/3ML NEB NEB PRN (01:37)
[2019-03-29 04:00] VITALS: BP 133/77
[2019-03-29] MEDS: HYDROCODONE/ACETAMINOPHEN 10/325MG TABLET PO PRN ×3 (06:58→21:32)
[2019-03-29 07:54] LABS: BASOPHILS % 0.3 % (0.0-2.0); EOSINOPHILS % 0.2 % (0.0-5.0); HEMATOCRIT. 34.6 % (42.0-52.0); HEMOGLOBIN. 11.2 g/dL (14.0-18.0); LYMPHOCYTES % 15.1 % (20.0-50.0); MEAN CORPUSCULAR HEMOGLOBIN 28.4 pg (28.0-32.0); MEAN CORPUSCULAR VOLUME 87.6 fL (80.0-94.0); NEUTROPHILS % 76.4 % (40.0-76.0); PLATELET 334 x1000/uL (130-400); RED BLOOD CELL COUNT 3.96 mill/uL (4.7-6.1); RED CELL DISTRIBUTION WIDTH 20.1 % (11.6-14.6)
[2019-03-29 08:00] VITALS: BP 103/70
[2019-03-29 08:08] LABS: CHLORIDE 96 mEq/L (98-107)
[2019-03-29] MEDS: CARVEDILOL 6.25 MG TABLET PO SCH ×2 (08:31→21:17)
[2019-03-29] MEDS: ASPIRIN 81MG EC TABLET PO SCH (08:44)
[2019-03-29] MEDS: AMIODARONE HCL 200 MG TABLET PO SCH (08:44)
[2019-03-29] MEDS: POTASSIUM CHLORIDE 20MEQ TABLET SR PO SCH (08:44)
[2019-03-29] MEDS: PREDNISONE 20MG TABLET PO SCH (08:44)
[2019-03-29] MEDS: ENOXAPARIN 40MG/0.4ML SYR SUBCUT SCH ×2 (08:45→21:17)
[2019-03-29] MEDS: FUROSEMIDE 100MG/10ML VIAL IVP SCH ×2 (08:45→16:40)
[2019-03-29 12:00] VITALS: BP 95/62
[2019-03-29 16:00] VITALS: BP 122/90
[2019-03-29] MEDS: MONTELUKAST SODIUM 10MG TABLET PO SCH (16:39)
[2019-03-29 20:00] VITALS: BP 112/72
[2019-03-29] MEDS: ATORVASTATIN CALCIUM 40MG TABLET PO SCH (21:17)
[2019-03-29] MEDS: ZOLPIDEM TARTRATE 5MG TABLET PO PRN (21:25)
[2019-03-29] MEDS: DOCUSATE SODIUM 100MG CAPSULE PO PRN (22:53)
[2019-03-30] VITALS: BP 107/60
[2019-03-30 04:00] VITALS: BP 123/70
[2019-03-30 06:56] LABS: BASOPHILS % 0.4 % (0.0-2.0); EOSINOPHILS % 0.2 % (0.0-5.0); HEMATOCRIT. 35.6 % (42.0-52.0); HEMOGLOBIN. 11.3 g/dL (14.0-18.0); MEAN CORPUSCULAR HEMOGLOBIN 27.9 pg (28.0-32.0); MEAN CORPUSCULAR VOLUME 87.7 fL (80.0-94.0); MONOCYTES % 7.9 % (2.0-8.0); NEUTROPHILS % 75.5 % (40.0-76.0); PLATELET 326 x1000/uL (130-400); RED BLOOD CELL COUNT 4.06 mill/uL (4.7-6.1); RED CELL DISTRIBUTION WIDTH 20.4 % (11.6-14.6)
[2019-03-30 07:34] LABS: CHLORIDE 95 mEq/L (98-107)
[2019-03-30 08:00] VITALS: BP 102/76
[2019-03-30] MEDS: CARVEDILOL 6.25 MG TABLET PO SCH ×2 (08:33→20:15)
[2019-03-30] MEDS ORDERED: METOLAZONE 2.5MG TABLET PO NR (08:44)
[2019-03-30] MEDS: ENOXAPARIN 40MG/0.4ML SYR SUBCUT SCH ×2 (08:57→20:07)
[2019-03-30] MEDS: POTASSIUM CHLORIDE 20MEQ TABLET SR PO SCH (08:57)
[2019-03-30] MEDS: ASPIRIN 81MG EC TABLET PO SCH (08:57)
[2019-03-30] MEDS: FUROSEMIDE 100MG/10ML VIAL IVP SCH ×2 (08:57→17:18)
[2019-03-30] MEDS: AMIODARONE HCL 200 MG TABLET PO SCH (08:57)
[2019-03-30] MEDS: PREDNISONE 20MG TABLET PO SCH (08:57)
[2019-03-30] MEDS: DOCUSATE SODIUM 100MG CAPSULE PO PRN ×2 (08:58→20:13)
[2019-03-30] MEDS: HYDROCODONE/ACETAMINOPHEN 10/325MG TABLET PO PRN ×2 (08:59→20:01)
[2019-03-30 12:00] VITALS: BP 119/69
[2019-03-30 16:00] VITALS: BP 130/86
[2019-03-30] MEDS: MONTELUKAST SODIUM 10MG TABLET PO SCH (17:18)
[2019-03-30 20:00] VITALS: BP 104/65
[2019-03-30] MEDS: ATORVASTATIN CALCIUM 40MG TABLET PO SCH (20:07)
[2019-03-31] VITALS: BP 106/65
[2019-03-31 04:00] VITALS: BP_SYST 120; BP_SYST 126; BP_DIAS 82
[2019-03-31] MEDS: HYDROCODONE/ACETAMINOPHEN 10/325MG TABLET PO PRN (04:12)
[2019-03-31 06:45] LABS: BASOPHILS % 0.5 % (0.0-2.0); EOSINOPHILS % 0.2 % (0.0-5.0); HEMATOCRIT. 36.9 % (42.0-52.0); HEMOGLOBIN. 11.6 g/dL (14.0-18.0); LYMPHOCYTES % 16.5 % (20.0-50.0); MEAN CORPUSCULAR HEMOGLOBIN 27.5 pg (28.0-32.0); MEAN CORPUSCULAR VOLUME 87.7 fL (80.0-94.0); MEAN PLATELET VOLUME 8.4 fl (7.4-10.4); MONOCYTES % 9.9 % (2.0-8.0); NEUTROPHILS % 72.9 % (40.0-76.0); PLATELET 283 x1000/uL (130-400); RED BLOOD CELL COUNT 4.21 mill/uL (4.7-6.1); RED CELL DISTRIBUTION WIDTH 20.4 % (11.6-14.6)
[2019-03-31 08:00] VITALS: BP 107/74
[2019-03-31 08:08] LABS: CHLORIDE 90 mEq/L (98-107)
[2019-03-31] MEDS: CARVEDILOL 6.25 MG TABLET PO SCH ×2 (09:00→20:45)
[2019-03-31] MEDS: FUROSEMIDE 100MG/10ML VIAL IVP SCH ×2 (09:42→16:58)
[2019-03-31] MEDS: PREDNISONE 20MG TABLET PO SCH (09:42)
[2019-03-31] MEDS: POTASSIUM CHLORIDE 20MEQ TABLET SR PO SCH (09:42)
[2019-03-31] MEDS: DOCUSATE SODIUM 100MG CAPSULE PO PRN (09:42)
[2019-03-31] MEDS: ASPIRIN 81MG EC TABLET PO SCH (09:42)
[2019-03-31] MEDS: AMIODARONE HCL 200 MG TABLET PO SCH (09:42)
[2019-03-31] MEDS: ENOXAPARIN 40MG/0.4ML SYR SUBCUT SCH ×2 (09:45→20:46)
[2019-03-31 09:54] LABS: BG BASE EXCESS 19.2 mmol/L (-2.0-2.0); BG BILEVEL POS AIRWAY PRESSURE 15/5; BG CARBOXYHEMOGLOBIN 0.7 % (0.5-1.5); BG DEOXYHEMOGLOBIN 2.1 % (0.0-5.0); BG FRACTION INSPIRED OXYGEN 28; BG HCO3 ACT 47.1 mmol/L (22.0-26.0); BG METHEMOGLOBIN 0.1 % (0.0-1.5); BG OXYGEN SATURATION 97.9 % (92.0-98.5); BG OXYHEMOGLOBIN 97.1 % (94.0-97.0); BG PH 7.434 (7.350-7.450); BG PO2 104.8 mmHg (75.0-100.0); BG SAMPLE SITE RIGHT RADIAL; BG TOTAL HEMOGLOBIN 12.5 g/dL (12.0-18.0); BG VENT MODE MASK - BIPAP; BG VENT RATE 16 set
[2019-03-31 12:00] VITALS: BP 106/77
[2019-03-31 16:00] VITALS: BP 114/76
[2019-03-31] MEDS: MONTELUKAST SODIUM 10MG TABLET PO SCH (16:58)
[2019-03-31 20:00] VITALS: BP 118/78
[2019-03-31] MEDS: ATORVASTATIN CALCIUM 40MG TABLET PO SCH (20:45)
[2019-04-01] VITALS: BP 99/62
[2019-04-01 04:00] VITALS: BP 100/67
[2019-04-01] MEDS: HYDROCODONE/ACETAMINOPHEN 10/325MG TABLET PO PRN ×3 (04:56→21:39)
[2019-04-01 07:24] LABS: BASOPHILS % 0.7 % (0.0-2.0); EOSINOPHILS % 0.1 % (0.0-5.0); HEMATOCRIT. 37.8 % (42.0-52.0); HEMOGLOBIN. 11.9 g/dL (14.0-18.0); LYMPHOCYTES % 13.8 % (20.0-50.0); MEAN CORPUSCULAR HEMOGLOBIN 27.9 pg (28.0-32.0); MEAN CORPUSCULAR VOLUME 88.4 fL (80.0-94.0); MEAN PLATELET VOLUME 7.9 fl (7.4-10.4); MONOCYTES % 9.8 % (2.0-8.0); NEUTROPHILS % 75.6 % (40.0-76.0); PLATELET 288 x1000/uL (130-400); RED BLOOD CELL COUNT 4.28 mill/uL (4.7-6.1); RED CELL DISTRIBUTION WIDTH 20.7 % (11.6-14.6)
[2019-04-01] MEDS ORDERED: METOLAZONE 2.5MG TABLET PO NR (07:30)
[2019-04-01 08:00] VITALS: BP 103/76
[2019-04-01 08:04] LABS: CHLORIDE 93 mEq/L (98-107)
[2019-04-01] MEDS: AMIODARONE HCL 200 MG TABLET PO SCH (08:22)
[2019-04-01] MEDS: ASPIRIN 81MG EC TABLET PO SCH (08:22)
[2019-04-01] MEDS: PREDNISONE 20MG TABLET PO SCH (08:22)
[2019-04-01] MEDS: CARVEDILOL 6.25 MG TABLET PO SCH ×2 (08:23→21:38)
[2019-04-01] MEDS: DOCUSATE SODIUM 100MG CAPSULE PO PRN (08:23)
[2019-04-01] MEDS: FUROSEMIDE 100MG/10ML VIAL IVP SCH ×2 (08:23→17:27)
[2019-04-01] MEDS: POTASSIUM CHLORIDE 20MEQ TABLET SR PO SCH (08:23)
[2019-04-01] MEDS: ENOXAPARIN 40MG/0.4ML SYR SUBCUT SCH ×2 (08:23→21:38)
[2019-04-01 12:00] VITALS: BP 111/72
[2019-04-01 14:28] LABS: BG BASE EXCESS 16.8 mmol/L (-2.0-2.0); BG CARBOXYHEMOGLOBIN 0.6 % (0.5-1.5); BG DEOXYHEMOGLOBIN 3.8 % (0.0-5.0); BG FRACTION INSPIRED OXYGEN 32; BG HCO3 ACT 43.6 mmol/L (22.0-26.0); BG METHEMOGLOBIN 0.3 % (0.0-1.5); BG OXYGEN SATURATION 96.2 % (92.0-98.5); BG OXYHEMOGLOBIN 95.3 % (94.0-97.0); BG PCO2 61.8 mmHg (35.0-45.0); BG PH 7.466 (7.350-7.450); BG PO2 86.7 mmHg (75.0-100.0); BG SAMPLE SITE RIGHT RADIAL; BG TOTAL HEMOGLOBIN 12.9 g/dL (12.0-18.0); BG VENT MODE NASAL CANNULA
[2019-04-01 16:00] VITALS: BP 121/64
[2019-04-01] MEDS ORDERED: ACETAZOLAMIDE 250MG TABLET PO SCH (17:00)
[2019-04-01] MEDS: MONTELUKAST SODIUM 10MG TABLET PO SCH (17:27)
[2019-04-01] MEDS: LACTULOSE 20G/30ML UDC PO PRN (18:40)
[2019-04-01 20:00] VITALS: BP 113/70
[2019-04-01] MEDS: ATORVASTATIN CALCIUM 40MG TABLET PO SCH (21:38)
[2019-04-01] MEDS: ZOLPIDEM TARTRATE 5MG TABLET PO PRN (22:13)
[2019-04-02] VITALS: BP 112/76
[2019-04-02 04:00] VITALS: BP 104/72
[2019-04-02] MEDS: HYDROCODONE/ACETAMINOPHEN 10/325MG TABLET PO PRN ×4 (06:37→22:32)
[2019-04-02 07:05] LABS: BASOPHILS % 0.3 % (0.0-2.0); EOSINOPHILS % 0.1 % (0.0-5.0); HEMATOCRIT. 39.4 % (42.0-52.0); HEMOGLOBIN. 12.4 g/dL (14.0-18.0); LYMPHOCYTES % 16.2 % (20.0-50.0); MEAN CORPUSCULAR HEMOGLOBIN 27.5 pg (28.0-32.0); MEAN CORPUSCULAR VOLUME 87.3 fL (80.0-94.0); MEAN PLATELET VOLUME 7.7 fl (7.4-10.4); MONOCYTES % 10.3 % (2.0-8.0); NEUTROPHILS % 73.1 % (40.0-76.0); PLATELET 300 x1000/uL (130-400); RED BLOOD CELL COUNT 4.52 mill/uL (4.7-6.1); RED CELL DISTRIBUTION WIDTH 20.7 % (11.6-14.6)
[2019-04-02 07:26] LABS: CHLORIDE 90 mEq/L (98-107)
[2019-04-02 08:00] VITALS: BP 124/87
[2019-04-02] MEDS: AMIODARONE HCL 200 MG TABLET PO SCH (09:12)
[2019-04-02] MEDS: PREDNISONE 20MG TABLET PO SCH (09:12)
[2019-04-02] MEDS: FUROSEMIDE 100MG/10ML VIAL IVP SCH ×2 (09:12→16:44)
[2019-04-02] MEDS: CARVEDILOL 6.25 MG TABLET PO SCH ×2 (09:13→21:00)
[2019-04-02] MEDS: ASPIRIN 81MG EC TABLET PO SCH (09:13)
[2019-04-02] MEDS: POTASSIUM CHLORIDE 20MEQ TABLET SR PO SCH (09:13)
[2019-04-02] MEDS: ENOXAPARIN 40MG/0.4ML SYR SUBCUT SCH ×2 (09:14→21:19)
[2019-04-02 12:00] VITALS: BP 115/74
[2019-04-02] MEDS: ACETAZOLAMIDE 250MG TABLET PO SCH (14:29)
[2019-04-02 16:00] VITALS: BP 98/58
[2019-04-02] MEDS: MONTELUKAST SODIUM 10MG TABLET PO SCH (16:44)
[2019-04-02 19:59] VITALS: BP 99/56
[2019-04-02] MEDS ORDERED: ZOLPIDEM TARTRATE 5MG TABLET PO PRN (21:00)
[2019-04-02] MEDS: ATORVASTATIN CALCIUM 40MG TABLET PO SCH (21:20)
[2019-04-02] MEDS: LACTULOSE 20G/30ML UDC PO PRN (22:31)
[2019-04-03 01:00] VITALS: BP 121/73
[2019-04-03 04:00] VITALS: BP 107/65
[2019-04-03 07:23] LABS: BASOPHILS % 0.4 % (0.0-2.0); EOSINOPHILS % 0.1 % (0.0-5.0); HEMATOCRIT. 40.7 % (42.0-52.0); HEMOGLOBIN. 12.9 g/dL (14.0-18.0); LYMPHOCYTES % 12.6 % (20.0-50.0); MEAN CORPUSCULAR HEMOGLOBIN 27.7 pg (28.0-32.0); MEAN CORPUSCULAR VOLUME 87.6 fL (80.0-94.0); MEAN PLATELET VOLUME 8.1 fl (7.4-10.4); MONOCYTES % 9.7 % (2.0-8.0); NEUTROPHILS % 77.2 % (40.0-76.0); PLATELET 297 x1000/uL (130-400); RED BLOOD CELL COUNT 4.65 mill/uL (4.7-6.1); RED CELL DISTRIBUTION WIDTH 21.1 % (11.6-14.6)
[2019-04-03 08:00] VITALS: BP 121/80
[2019-04-03 08:27] LABS: CHLORIDE 92 mEq/L (98-107)
[2019-04-03] MEDS: FUROSEMIDE 100MG/10ML VIAL IVP SCH ×2 (09:10→17:45)
[2019-04-03] MEDS: ASPIRIN 81MG EC TABLET PO SCH (09:10)
[2019-04-03] MEDS: DOCUSATE SODIUM 100MG CAPSULE PO PRN (09:11)
[2019-04-03] MEDS: CARVEDILOL 6.25 MG TABLET PO SCH ×2 (09:11→20:03)
[2019-04-03] MEDS: POTASSIUM CHLORIDE 20MEQ TABLET SR PO SCH (09:11)
[2019-04-03] MEDS: HYDROCODONE/ACETAMINOPHEN 10/325MG TABLET PO PRN ×3 (09:12→20:03)
[2019-04-03] MEDS: ENOXAPARIN 40MG/0.4ML SYR SUBCUT SCH ×2 (09:12→20:02)
[2019-04-03] MEDS: PREDNISONE 20MG TABLET PO SCH (09:12)
[2019-04-03 12:00] VITALS: BP 119/82
[2019-04-03 15:21] LABS: BG BASE EXCESS 12.1 mmol/L (-2.0-2.0); BG CARBOXYHEMOGLOBIN 0.6 % (0.5-1.5); BG DEOXYHEMOGLOBIN 2.3 % (0.0-5.0); BG FRACTION INSPIRED OXYGEN 32; BG HCO3 ACT 38.4 mmol/L (22.0-26.0); BG METHEMOGLOBIN 0.4 % (0.0-1.5); BG OXYGEN SATURATION 97.7 % (92.0-98.5); BG OXYHEMOGLOBIN 96.7 % (94.0-97.0); BG PCO2 56.2 mmHg (35.0-45.0); BG PH 7.452 (7.350-7.450); BG SAMPLE SITE RIGHT RADIAL; BG TOTAL HEMOGLOBIN 13.6 g/dL (12.0-18.0); BG VENT MODE NASAL CANNULA
[2019-04-03 16:00] VITALS: BP 111/57
[2019-04-03] MEDS: MONTELUKAST SODIUM 10MG TABLET PO SCH (17:45)
[2019-04-03 20:00] VITALS: BP 116/76
[2019-04-03] MEDS: ATORVASTATIN CALCIUM 40MG TABLET PO SCH (20:03)
[2019-04-04] VITALS: BP 117/93
[2019-04-04 04:00] VITALS: BP 112/84
[2019-04-04] MEDS: HYDROCODONE/ACETAMINOPHEN 10/325MG TABLET PO PRN ×2 (06:49→15:40)
[2019-04-04 08:00] VITALS: BP 112/77
[2019-04-04 08:01] LABS: BASOPHILS % 0.4 % (0.0-2.0); EOSINOPHILS % 0.1 % (0.0-5.0); HEMOGLOBIN. 13.4 g/dL (14.0-18.0); LYMPHOCYTES % 16.9 % (20.0-50.0); MEAN CORPUSCULAR VOLUME 87.9 fL (80.0-94.0); MEAN PLATELET VOLUME 7.8 fl (7.4-10.4); MONOCYTES % 11.6 % (2.0-8.0); PLATELET 256 x1000/uL (130-400); RED BLOOD CELL COUNT 4.77 mill/uL (4.7-6.1); RED CELL DISTRIBUTION WIDTH 21.4 % (11.6-14.6)
[2019-04-04 08:18] LABS: CHLORIDE 94 mEq/L (98-107)
[2019-04-04] MEDS: POTASSIUM CHLORIDE 20MEQ TABLET SR PO SCH (08:46)
[2019-04-04] MEDS: ASPIRIN 81MG EC TABLET PO SCH (08:46)
[2019-04-04] MEDS: PREDNISONE 20MG TABLET PO SCH (08:46)
[2019-04-04] MEDS: ACETAZOLAMIDE 250MG TABLET PO SCH (08:46)
[2019-04-04] MEDS: CARVEDILOL 6.25 MG TABLET PO SCH (08:46)
[2019-04-04] MEDS: FUROSEMIDE 100MG/10ML VIAL IVP SCH ×2 (08:46→16:51)
[2019-04-04] MEDS: ENOXAPARIN 40MG/0.4ML SYR SUBCUT SCH (08:47)
[2019-04-04 12:00] VITALS: BP 120/85
[2019-04-04 15:43] VITALS: BP 110/68
[2019-04-04 16:00] VITALS: BP 110/68
[2019-04-04] MEDS: MONTELUKAST SODIUM 10MG TABLET PO SCH (16:51)
== END 2019-04-04 19:58 | disposition home or self-care (01) | DRG 194 ==
LOC: ER 08:58 → 5WST 09:34 → EDBEDREQTM 09:37 → EDBEDREQ 09:37 → ENRESERV 20:06
PROVIDERS: ADMIT Internal Medicine; ATTEND Internal Medicine
PROC: 5A09357 Assistance with Respiratory Ventilation, Less than 24 Consecutive Hours, Continuous Positive Airway Pressure (ICD-10-PCS; principal; 2019-03-29)
PROC: 5A09357 Assistance with Respiratory Ventilation, Less than 24 Consecutive Hours, Continuous Positive Airway Pressure (ICD-10-PCS; 2019-03-30)
PROC: 5A09357 Assistance with Respiratory Ventilation, Less than 24 Consecutive Hours, Continuous Positive Airway Pressure (ICD-10-PCS; 2019-03-31)
PROC: 5A09357 Assistance with Respiratory Ventilation, Less than 24 Consecutive Hours, Continuous Positive Airway Pressure (ICD-10-PCS; 2019-04-01)
PROC: 5A09357 Assistance with Respiratory Ventilation, Less than 24 Consecutive Hours, Continuous Positive Airway Pressure (ICD-10-PCS; 2019-04-02)
PROC: 5A09357 Assistance with Respiratory Ventilation, Less than 24 Consecutive Hours, Continuous Positive Airway Pressure (ICD-10-PCS; 2019-04-03)
PROC: 5A09357 Assistance with Respiratory Ventilation, Less than 24 Consecutive Hours, Continuous Positive Airway Pressure (ICD-10-PCS; 2019-04-04)
DX: I11.0 Hypertensive heart disease with heart failure (principal); J96.21 Acute and chronic respiratory failure with hypoxia; R18.8 Other ascites; R65.10 Systemic inflammatory response syndrome (SIRS) of non-infectious origin without acute organ dysfunction; E66.01 Morbid (severe) obesity due to excess calories; Z68.43 Body mass index [BMI] 50.0-59.9, adult; Z99.81 Dependence on supplemental oxygen; I42.0 Dilated cardiomyopathy; I50.23 Acute on chronic systolic (congestive) heart failure; D64.9 Anemia, unspecified; E11.9 Type 2 diabetes mellitus without complications; E78.5 Hyperlipidemia, unspecified; J44.9 Chronic obstructive pulmonary disease, unspecified; I45.9 Conduction disorder, unspecified; D72.829 Elevated white blood cell count, unspecified; T38.0X5A Adverse effect of glucocorticoids and synthetic analogues, initial encounter; Y92.89 Other specified places as the place of occurrence of the external cause; Z79.899 Other long term (current) drug therapy; Z82.49 Family history of ischemic heart disease and other diseases of the circulatory system; Z83.3 Family history of diabetes mellitus; Z87.891 Personal history of nicotine dependence; Z88.8 Allergy status to other drugs, medicaments and biological substances; Z79.82 Long term (current) use of aspirin
CPT/HCPCS: 36415; 36600; 71045; 76705; 80048; 80053; 81003; 82375; 82805; 83605; 83735; 83880; 84484; 85025; 93005; 93970; 94640; 94660; 97162; 99285; J1650; J1940; J2405; J2543; J7512

== ENCOUNTER 2019-07-22 23:19 | Inpatient (IN) | payer MEDICAID ==
[~2019-07-22] VITALS: Ht 172.7 cm; Wt 153.3 kg
[~2019-07-22 23:19] MED LIST changes: -AMI2 PO; -FLOR PO; -METO5TAB7 PO
[2019-07-22] MEDS ORDERED: FUROSEMIDE 40MG/4ML VIAL IV ONE (23:45)
[2019-07-23] VITALS (8 sets, daily range): BP systolic 93–136; BP diastolic 58–80
[2019-07-23 00:48] LABS: BASOPHILS % 0.5 % (0.0-2.0); EOSINOPHILS % 0.3 % (0.0-5.0); HEMATOCRIT. 29.4 % (42.0-52.0); HEMOGLOBIN. 9.5 g/dL (14.0-18.0); LYMPHOCYTES % 10.5 % (20.0-50.0); MEAN CORPUSCULAR HEMOGLOBIN 29.9 pg (28.0-32.0); MEAN CORPUSCULAR VOLUME 92.7 fL (80.0-94.0); MEAN PLATELET VOLUME 7.8 fl (7.4-10.4); MONOCYTES % 10.3 % (2.0-8.0); NEUTROPHILS % 78.4 % (40.0-76.0); PLATELET 253 x1000/uL (130-400); RED BLOOD CELL COUNT 3.17 mill/uL (4.7-6.1); RED CELL DISTRIBUTION WIDTH 19.5 % (11.6-14.6)
[2019-07-23 00:55] LABS: CHLORIDE 103 mEq/L (98-107)
[2019-07-23 01:27] LABS: BG BASE EXCESS -1.9 mmol/L (-2.0-2.0); BG DEOXYHEMOGLOBIN 3.3 % (0.0-5.0); BG FRACTION INSPIRED OXYGEN 32; BG HCO3 ACT 22.7 mmol/L (22.0-26.0); BG METHEMOGLOBIN 0.5 % (0.0-1.5); BG OXYGEN SATURATION 96.7 % (92.0-98.5); BG OXYHEMOGLOBIN 96.2 % (94.0-97.0); BG PH 7.395 (7.350-7.450); BG PO2 111.8 mmHg (75.0-100.0); BG SAMPLE SITE RIGHT RADIAL; BG TOTAL HEMOGLOBIN 9.8 g/dL (12.0-18.0); BG VENT MODE NASAL CANNULA
[2019-07-23] MEDS ORDERED: HYDROCODONE/ACETAMINOPHEN 5/325MG TABLET PO ONE (02:15)
[2019-07-23] MEDS ORDERED: KETOROLAC 30MG/ML VIAL IV ONE (02:15)
[2019-07-23] MEDS ORDERED: MORPHINE SULFATE 2 MG/ML CPJ (NOT FOR IM USE) IV SCH (07:30)
[2019-07-23] MEDS ORDERED: MORPHINE SULFATE 2 MG/ML CPJ (NOT FOR IM USE) IV PRN (08:30)
[2019-07-23] MEDS ORDERED: IPRATROPIUM/ALBUTEROL 0.5-3(2.5)MG/3ML NEB HHN PRN (08:45)
[2019-07-23] MEDS ORDERED: ONDANSETRON HCL 4MG/2ML INJ IV PRN (08:45)
[2019-07-23] MEDS: CARVEDILOL 6.25 MG TABLET PO SCH ×2 (09:46→20:57)
[2019-07-23] MEDS: ENOXAPARIN 40MG/0.4ML SYR SUBCUT SCH ×2 (09:46→20:58)
[2019-07-23] MEDS: FUROSEMIDE 40MG/4ML VIAL IV SCH ×2 (09:46→18:12)
[2019-07-23] MEDS: BUDESONIDE 0.5MG/2ML NEB HHN SCH ×2 (10:08→22:04)
[2019-07-23 12:11] LABS: OPIATES URINE SCREEN PRESUMTIVE POSITIVE (NEGATIVE)
[2019-07-23 12:12] LABS: *AMPHETAMINES SCREEN URINE NEGATIVE (NEGATIVE); *BARBITURATES SCREEN URINE NEGATIVE (NEGATIVE); *BENZODIAZEPINES SCREEN URINE NEGATIVE (NEGATIVE); *COCAINE SCREEN URINE NEGATIVE (NEGATIVE); CANNABINOID URINE SCREEN NEGATIVE (NEGATIVE); PHENCYCLIDINE URINE SCREEN NEGATIVE (NEGATIVE)
[2019-07-23 12:13] LABS: METHADONE URINE SCREEN NEGATIVE (NEGATIVE)
[2019-07-23] MEDS: HYDROCODONE/ACETAMINOPHEN 10/325MG TABLET PO PRN ×2 (14:40→20:58)
[2019-07-23] MEDS: METFORMIN HCL 500MG TABLET PO SCH (18:11)
[2019-07-23] MEDS: IPRATROPIUM/ALBUTEROL 0.5-3(2.5)MG/3ML NEB HHN SCH (22:09)
[2019-07-24] VITALS (12 sets, daily range): BP systolic 85–127; BP diastolic 43–81
[2019-07-24] MEDS: IPRATROPIUM/ALBUTEROL 0.5-3(2.5)MG/3ML NEB HHN SCH ×4 (02:26→20:20)
[2019-07-24] MEDS: HYDROCODONE/ACETAMINOPHEN 10/325MG TABLET PO PRN ×3 (04:30→18:25)
[2019-07-24 07:05] LABS: HEMATOCRIT. 29.5 % (42.0-52.0); HEMOGLOBIN. 9.4 g/dL (14.0-18.0); MEAN CORPUSCULAR HEMOGLOBIN 29.7 pg (28.0-32.0); MEAN CORPUSCULAR VOLUME 93.1 fL (80.0-94.0); MEAN PLATELET VOLUME 8.3 fl (7.4-10.4); PLATELET 237 x1000/uL (130-400); RED BLOOD CELL COUNT 3.17 mill/uL (4.7-6.1); RED CELL DISTRIBUTION WIDTH 19.9 % (11.6-14.6)
[2019-07-24 07:09] LABS: CHLORIDE 102 mEq/L (98-107)
[2019-07-24 07:13] LABS: TOTAL IRON BINDING CAPACITY 232 ug/dL (250-450)
[2019-07-24 07:16] LABS: T4 FREE 1.15 ng/dL (0.76-1.46)
[2019-07-24 07:50] LABS: PLATELET ESTIMATE NORMAL
[2019-07-24] MEDS: BUDESONIDE 0.5MG/2ML NEB HHN SCH ×2 (08:50→20:20)
[2019-07-24] MEDS: FUROSEMIDE 40MG/4ML VIAL IV SCH ×2 (09:07→18:26)
[2019-07-24] MEDS: ENOXAPARIN 40MG/0.4ML SYR SUBCUT SCH ×2 (09:08→21:18)
[2019-07-24] MEDS: METFORMIN HCL 500MG TABLET PO SCH ×2 (09:08→18:26)
[2019-07-24] MEDS: CARVEDILOL 6.25 MG TABLET PO SCH ×2 (09:08→21:17)
[2019-07-24] MEDS: FERROUS SULFATE 325MG TABLET PO SCH ×2 (12:09→18:26)
[2019-07-24] MEDS: DIPHENHYDRAMINE 25MG CAPSULE PO PRN (15:27)
[2019-07-25] VITALS (11 sets, daily range): BP systolic 96–125; BP diastolic 52–85
[2019-07-25] MEDS: DIPHENHYDRAMINE 25MG CAPSULE PO PRN ×2 (00:29→08:40)
[2019-07-25] MEDS: HYDROCODONE/ACETAMINOPHEN 10/325MG TABLET PO PRN ×3 (00:31→16:33)
[2019-07-25] MEDS: IPRATROPIUM/ALBUTEROL 0.5-3(2.5)MG/3ML NEB HHN SCH ×3 (02:17→13:02)
[2019-07-25] MEDS: BUDESONIDE 0.5MG/2ML NEB HHN SCH (08:07)
[2019-07-25] MEDS: CARVEDILOL 6.25 MG TABLET PO SCH (08:32)
[2019-07-25] MEDS: FERROUS SULFATE 325MG TABLET PO SCH ×3 (08:32→18:17)
[2019-07-25] MEDS: METFORMIN HCL 500MG TABLET PO SCH ×2 (08:32→18:17)
[2019-07-25] MEDS: ENOXAPARIN 40MG/0.4ML SYR SUBCUT SCH (08:33)
[2019-07-25] MEDS: FUROSEMIDE 40MG/4ML VIAL IV SCH ×2 (08:33→16:26)
[2019-07-25] MEDS ORDERED: MONT10TA21 PO (10:35)
[2019-07-25] MEDS ORDERED: ALPR0.5T MT (11:17)
[2019-07-25] MEDS ORDERED: CHLORHEXIDINE GLUCONATE 4% EXTERNAL USE TOP SCH (14:00)
[2019-07-25] MEDS ORDERED: BACITRACIN 15GM TUBE TOP SCH (14:00)
== END 2019-07-25 18:50 | disposition home health service (06) | DRG 194 ==
LOC: ER 23:19 → 5EST 07-23 00:58 → EDBEDREQ 07-23 01:00 → EDBEDREQTM 07-23 01:00 → EDBEDREQDT 07-23 01:00 → ENRESERV 07-23 07:40
PROVIDERS: ADMIT Internal Medicine; ATTEND Internal Medicine
PROC: 5A09357 Assistance with Respiratory Ventilation, Less than 24 Consecutive Hours, Continuous Positive Airway Pressure (ICD-10-PCS; principal; 2019-07-23)
PROC: 5A09357 Assistance with Respiratory Ventilation, Less than 24 Consecutive Hours, Continuous Positive Airway Pressure (ICD-10-PCS; 2019-07-24)
PROC: 5A09357 Assistance with Respiratory Ventilation, Less than 24 Consecutive Hours, Continuous Positive Airway Pressure (ICD-10-PCS; 2019-07-25)
DX: I11.0 Hypertensive heart disease with heart failure (principal); J96.21 Acute and chronic respiratory failure with hypoxia; E43 Unspecified severe protein-calorie malnutrition; Z68.43 Body mass index [BMI] 50.0-59.9, adult; I42.9 Cardiomyopathy, unspecified; E11.9 Type 2 diabetes mellitus without complications; D50.9 Iron deficiency anemia, unspecified; I50.23 Acute on chronic systolic (congestive) heart failure; J44.9 Chronic obstructive pulmonary disease, unspecified; E66.9 Obesity, unspecified; E78.5 Hyperlipidemia, unspecified; Z60.2 Problems related to living alone; G47.33 Obstructive sleep apnea (adult) (pediatric); I45.9 Conduction disorder, unspecified; Z88.8 Allergy status to other drugs, medicaments and biological substances; Z99.81 Dependence on supplemental oxygen; Z95.810 Presence of automatic (implantable) cardiac defibrillator; Z79.899 Other long term (current) drug therapy; Z87.891 Personal history of nicotine dependence; Z79.82 Long term (current) use of aspirin; Z71.89 Other specified counseling
CPT/HCPCS: 36415; 36600; 71045; 80048; 80053; 80305; 82270; 82375; 82805; 83540; 83550; 83735; 83880; 84439; 84443; 84484; 85025; 85044; 93005; 99291; J1650; J1885; J1940; J2270; J7626; Q0163